=== PATIENT | female | born 1930 | race Caucasian/White ===

== ENCOUNTER 2019-01-21 23:36 | Inpatient (IN) | payer MEDICARE, OTHER ==
[~2019-01-21] VITALS: Ht 157.5 cm; Wt 75.3 kg
[~2019-01-21 23:36] MED LIST: /ALEN70TA OR; ACET65TA OR; ADVA1AER2 INH; ADVAIR; ALB2.5NEB INH; ALBU17IN INH; ALENDRONATE; ASPI81TA26 PO; AVEL1TAB2; AVEL1TAB3 PO; BABY81CH OR; CLOP75TA2 PO; CODE15TA OR; DUONSOL; DUONSOL INH; FISHCAP OR; METO1TAB63 PO; MILKSUS OR; MIRALEX OR; MOM30SS PO; MUCINEX PO; MULTIVIT OR; NEUR300C PO; NEXI1CAP3; PLAV75TA2 OR; PRAV1TAB39 OR; PRAV20TA2 PO; PRED-351 PO; PRED10TA2 OR; PRED10TA2 PO; PRED20TA; PRED20TA OR; PRED5PAK PO; PRED5TA PO; PRED5TAB OR; PRED5TAB PO; PROV90AE; REME15TA PO; SPIR1CAP INH; SYMB80INH INH; THERGRAN OR; TUSSSUS5; TYLE325T5 PO; VICO5TAB PO; WELL75TA PO; ZITH250T OR; ZITH250T PO; omega 3 OR
[2019-01-22] MEDS ORDERED: IPRATROPIUM 0.5MG/ALBUTEROL 2.5MG INH SOL UD 3ML (DUONEB)(J7620) NEB ONE ×2 (00:30→04:15)
[2019-01-22 00:54] LABS: BASO % 0.3 % (0.0-1.0); EOS # 0.5 10^3/uL (0.0-0.50); HEMATOCRIT 34.6 % (36.0-47.0); HEMOGLOBIN 11.4 g/dl (12.0-15.5); LYMPH # 2.5 10^3/uL (1.5-4.5); LYMPH % 16.1 % (24.0-44.0); MEAN CORPUSCULAR HEMOGLOBIN 31.1 pg (27.0-33.0); MEAN CORPUSCULAR HGB CONC 32.9 g/dl (32.0-36.5); MEAN CORPUSCULAR VOLUME 94.3 fl (80.0-96.0); MONO # 1.3 10^3/uL (0.0-0.8); MONO % 8.3 % (0.0-5.0); NEUTROPHILS % 71.7 % (36.0-66.0); PLATELET COUNT, AUTOMATED 257 10^3/uL (150-450); RED BLOOD COUNT 3.67 10^6/uL (4.00-5.40); WHITE BLOOD COUNT 15.4 10^3/uL (4.0-10.0)
[2019-01-22 01:00] LABS: VENOUS BASE EXCESS 2.5 (-2.0-2.0); VENOUS HCO3 30.7 MEQ/L (23.0-27.0); VENOUS O2 SATURATION 70.6 % (60.0-80.0); VENOUS PARTIAL PRESSURE CO2 66.1 mmHg (38.0-50.0); VENOUS PARTIAL PRESSURE O2 42.6 mmHg (30.0-50.0); VENOUS PH 7.285 UNITS (7.330-7.430); VENOUS STANDARD HCO3 26.1 MEQ/L; VENOUS TOTAL CO2 32.7 MEQ/L (24.0-28.0)
[2019-01-22 01:23] LABS: BLOOD UREA NITROGEN 26 MG/DL (7-18); CARBON DIOXIDE LEVEL 31 MEQ/L (21-32); CHLORIDE LEVEL 103 MEQ/L (98-107); CK-MB VALUE MASS 2.1 NG/ML (<3.6); CPK CREATINE PHOSPHOKINASE 91 U/L (26-192); CREATININE FOR GFR 0.78 MG/DL (0.55-1.30); GLOMERULAR FILTRATION RATE > 60.0 (>32); GLUCOSE, FASTING 72 MG/DL (70-100); MB/CK RELATIVE INDEX 2.31 (< OR =4); NT-PRO BNP 667 PG/ML (<450); POTASSIUM SERUM 4.3 MEQ/L (3.5-5.1); SODIUM LEVEL 140 MEQ/L (136-145); TROPONIN I 0.45 NG/ML (< 0.10)
[2019-01-22] MEDS ORDERED: JANU25TA PO ×2 (02:12→04:46)
[2019-01-22] MEDS ORDERED: FURO20TA2 PO ×2 (02:12→04:46)
[2019-01-22] MEDS ORDERED: CLOP75TA2 PO ×2 (02:12→04:46)
[2019-01-22] MEDS ORDERED: METO1TAB32 PO (02:12)
[2019-01-22] MEDS ORDERED: POTA10TA17 PO (02:12)
[2019-01-22] MEDS ORDERED: PRAV20TA2 PO ×2 (02:12→04:46)
[2019-01-22] MEDS ORDERED: CART120C PO (02:12)
[2019-01-22] MEDS ORDERED: PRED5PAK PO (02:12)
[2019-01-22] MEDS ORDERED: HYDR-3713 PO (02:12)
[2019-01-22] MEDS ORDERED: CILO50TA PO ×2 (02:12→04:46)
[2019-01-22] MEDS ORDERED: OMEP20CA3 PO (02:12)
[2019-01-22] MEDS ORDERED: ISOVUE-370 76% 100ML VIAL (Q9967) As Ordered ONE (02:51)
--- NOTE | 2019-01-22 03:27 | REPVR ---
EXAM: CT Angiography Chest With Contrast EXAM DATE/TIME: 01/22/2019 2:46 AM CLINICAL HISTORY: 88 years old, female; Shortness of breath; Patient HX: Copd; Additional info: SOB TECHNIQUE: Imaging protocol: Axial computed tomographic angiography images of the chest with intravenous contrast using CT angiography protocol. Coronal and sagittal reformatted images were created and reviewed. 3D rendering: MIP reconstructed images were created and reviewed. Radiation optimization: All CT scans at this facility use at least one of these dose optimization techniques: automated exposure control; mA and/or kV adjustment per patient size (includes targeted exams where dose is matched to clinical indication); or iterative reconstruction. Contrast material: ISO; Contrast volume: 75 ml; Contrast route: AC; COMPARISON: CR PORTABLE CHEST X-RAY 01/22/2019 12:31 AM FINDINGS: PULMONARY ARTERIES: Enhancement within the pulmonary arteries is preserved bilaterally through the distal segmental levels, without evidence for acute pulmonary embolus. Diameter of the main pulmonary trunk at 3.5 cm could be correlated for mild pulmonary arterial hypertension. HEART AND AORTA: Cardiothoracic ratio is slightly above normal limits. There is some calcification of the mitral and aortic valves. No significant pericardial effusion. There is coronary arterial calcification. The thoracic aorta is not aneurysmal. There is no thoracic aortic dissection. There is thoracic aortic atherosclerosis. Visualized proximal great vessels within the superior mediastinum are atherosclerotic but patent. MEDIASTINUM: No mediastinal gas. The visualized thyroid gland is within normal limits. No mediastinal hematoma. Small prevascular lymph nodes are noted. There is a precarinal lymph node measuring 15.2 mm in short axis, there is mild hilar lymphadenopathy, right greater than left the largest lymph node measuring 21 mm in maximal dimension. LUNGS: Small left pleural effusion. No pneumothorax. Patchy confluent pulmonary opacities noted within the left lower lobe which could be due to atelectasis and/or infiltrate/pneumonia. Clinical correlation and radiographic followup is advised. Similar patchy airspace opacity is noted posteriorly within the right upper lobe. Scattered subpleural reticular opacities are noted which may be secondary to atelectasis or interstitial thickening. Mild emphysematous changes are noted at lung apices. Dependent groundglass opacity is noted, likely due to atelectasis. Mild peribronchial thickening within the lower lobes may be related to reactive airways disease or mild bronchitis. There may be a few opacified bronchi which could be secondary to secretions from bronchitis or aspiration. UPPER ABDOMEN: No free air or free fluid within the visualized uppermost abdomen. No hiatal hernia. MSK AND BODY WALL: Degenerative changes of the spine and bony thorax. No acute fracture seen. IMPRESSION: No evidence for acute pulmonary embolus. Clinical correlation for mild pulmonary arterial hypertension. Mild cardiac enlargement and atherosclerosis including coronary artery disease. Pulmonary opacities to be correlated for infiltrate/pneumonia. Pulmonary findings discussed above in detail. Slightly enlarged mediastinal and hilar lymph nodes may be reactive, however short interval followup is advised to confirm resolution. Other incidental findings discussed above. Electronically signed by: Rodolfo Yoder On 01/22/2019 03:26:47 AM
[2019-01-22 03:50] LABS: CK-MB VALUE MASS 1.5 NG/ML (<3.6); MB/CK RELATIVE INDEX 1.74 (< OR =4); TROPONIN I 0.41 NG/ML (< 0.10)
[2019-01-22] MEDS ORDERED: PIPERACILLIN/TAZOBACTAM SOD 3.375 GM in D5W MINI-BAG PLUS 50 ML IV ONE (04:15)
[2019-01-22] MEDS ORDERED: TOUJ1.2I SC (04:46)
[2019-01-22] MEDS ORDERED: PRED5TA PO (04:46)
[2019-01-22] MEDS ORDERED: IPRA0.00 INH (04:46)
[2019-01-22] MEDS ORDERED: METO1TAB7 PO (04:46)
[2019-01-22] MEDS ORDERED: NORC1TAB7 PO ×2 (04:46)
[2019-01-22] MEDS ORDERED: TIOT18INH INH (04:46)
[2019-01-22] MEDS ORDERED: DILT120C78 PO (04:46)
[2019-01-22] MEDS ORDERED: D3 S1CAP3 PO (04:46)
[2019-01-22] MEDS ORDERED: ASPI81TA27 PO (04:46)
[2019-01-22] MEDS ORDERED: NORCO, ANEXSIA 5/325MG TABLET (HYDROcodone/ACETAMINOPHEN) PO PRN (05:30)
--- NOTE | 2019-01-22 05:43 | HPEPDOC ---
[facility] Medical History & Physical Date of Admission Jan 22, 2019 Date of Service: Jan 22, 2019 History and Physical PCP: [facility] CHIEF COMPLAINT: Shortness of breath HISTORY OF PRESENT ILLNESS: Patient is a 88-year-old female with significant COPD and follows with rewriter at her baseline on chronic O2 at night and with naps as well as chronic prednisone therapy 5 mg daily. 3 years ago she quit smoking after [id number] history of when she moved in with her son. Her son is retired they go back and forth between [address] [place] [address] and multiple homes appear in the [facility]. They recently drove from [facility] of this past weekend [address] the patient was notably more short of breath and coughing significantly more her dyspnea on exertion appeared to worsen over the last 2 days prompting Saturday presented to the emergency room today. The patient herself, she did not want to come to the hospital but does admit to significant shortness of breath. Patient does not feel improved emergency room at this time Otherwise patient denies weight loss, hair loss, headache, visual changes, chest pain, nausea, vomiting, diarrhea, abdominal pain, muscle aches, worsening arthritis, change in mood. The patient was recently diagnosed with moderate to moderately severe aortic stenosis as well as new onset atrial fibrillation. The patient's son also tells me that she recently was diagnosed with an esophageal stricture status post dilation 3 months ago, prior to the dilation she had several days' worth of pills and food in her esophagus. PAST MEDICAL HISTORY: 1. Significant peripheral arterial disease with multiple stents and bypasses she's been recommended previously for amputation. 2. Dyslipidemia. 3. Mood disorder 4. COPD with chronic prednisone dependence 5. Dysphasia 6. Aortic stenosis 7. Atrial fibrillation. HOME MEDICATIONS: Please see below. ALLERGIES: Please see below PAST SURGICAL HISTORY: 1. Bilateral peripheral arterial disease interventions numerous procedures and surgeries. 2. Brain aneurysm clipped. 3. Esophageal dilation 3 months ago. SOCIAL HISTORY: Lives with: Son, Employment: Not working, Tobacco use: Former 48-[id number]-kneb smoker. ETOH: Denies, Illicit drug use: Denies, Tattoos done unprofessionally: Denies, CODE STATUS: Full code FAMILY HISTORY:Reviewed and noncontributory REVIEW OF SYSTEMS: 10 systems reviewed and negative other than HPI PHYSICAL EXAMINATION: VITAL SIGNS: Temperature 97.8, pulse 90, respiratory rate 32, blood pressure 156/89, pulse oximetry 95 % on 2 L GENERAL: Pleasant hard of hearing elderly female sitting in a chair accompanied by her son awake alert oriented speaking in complete sentences no acute distress, mildly tachypnic HEENT: Moist mucous membranes no elevation and CVP appreciated CARDIOVASCULAR: S1 S2 regular no systolic ejection murmur. RESPIRATORY: Clear to auscultation bilaterally at the apices bilaterally, left lower lobe rails prolonged expiratory phase throughout. ABDOMINAL: Bowel sounds present abdomen soft and nontender EXTREMITIES: Chronic hyperpigmentation of the pretibial area bilaterally 1-2+ edema bilaterally exquisite tenderness to palpation NEUROLOGICAL: Spontaneously moves all 4 extremities cranial 2 through 12 grossly intact no gross focal deficits appreciated PSYCHOLOGICAL: Appropriate LABORATORY DATA: See below. MICROBIOLOGY: Please see below. IMAGING: CT angiography:No evidence for acute pulmonary embolus. Clinical correlation for mild pulmonary arterial hypertension. Mild cardiac enlargement and atherosclerosis including coronary artery disease. Pulmonary opacities to be correlated for infiltrate/pneumonia. Pulmonary findings discussed above in detail. Slightly enlarged mediastinal and hilar lymph nodes may be reactive, however short interval followup is advised to confirm resolution. Other incidental findings discussed In full report ASSESSMENT & PLAN: This is a 88-year-old female with acute on chronic hypoxic respiratory failure. PROBLEMS: 1. Acute on chronic hypoxic respiratory failure: Likely multifactorial in nature she certainly has numerous etiologies which could be contributing. Based on her CT findings and clinical history I'm most concerned for restenosis of her esophagus with aspiration events including the distribution of her multilobar pneumonia. As such. I'll continue her on Zosyn make her nothing by mouth have speech therapy evaluate her. She certainly could also be having decompensation of her COPD she does have fairly significant disease I'll provide her with Solu- Medrol in place of her usual prednisone in addition to nebulizer treatments continue her home inhalers. She is a new diagnosis of aortic stenosis. As such I will check an echocardiogram and she does have some mild elevation in her troponin which is likely secondary to demand ischemia related to her respiratory distress. I'll monitor on telemetry in the progressive care unit. She does have bilateral lower extremity edema but she also has significant known peripheral arterial disease and has been recommended for agitation the past I will hold off on her diuretic for now as her BUN is elevated as is her lactic acid could consider resuming with next 24-48 hours. I will check a duplex of lower extremities to exclude any DVT given her recent lengthy travel and lower extremity swelling and pain Once her acute medical illness has resolved she will require a repeat CT scan 2.Lactic acidosis: Likely secondary to increased work of breathing I will hold her diuretic although she appears to be perfusing well with normotensive blood pressure monitor for the next 24 hours 3. Abnormal troponin: Likely type II demand ischemia related to her respiratory distress already trending downward given her history of carotid disease peripheral arterial disease she will certainly has a degree of coronary artery disease could consider outpatient cardiology ischemic eval after her acute medical illness has resolved 4.COPD: As outlined above 5. Lower extremity edema: As outlined above 6. Diabetes mellitus: Sliding scale while patient is nothing by mouth, hypoglycemic protocol 7. Atrial fibrillation: Previous conversations were had on the outpatient setting the decision was made not to anticoagulate her, she has a new DVT O's not initiate anticoagulation at this time. She is rate controlled with metoprolol and diltiazem. 8. Peripheral arterial disease: Recommended to have amputation for end-stage peripheral arterial disease the patient follows with Dr Palmer in [place] vascular surgery recommended outpatient follow-up with him. Continue with hydrocodone for pain control aspirin Plavix statin DVT PROPHYLAXIS:Heparin DISPOSITION: PCU, given her multitude of problems and fragility her prognosis is certainly guarded. Lengthy time spent bedside answering all questions to his satisfaction of the patient's son who appears to be clearly medically educated Vital Signs Vital Signs Date Time Temp Pulse Resp B/P (MAP) Pulse Ox O2 Delivery O2 Flow Rate FiO2 01/22/19 04:36 89 25 95 Nasal Cannula 4.0 01/22/19 02:09 156/89 (111) 01/21/19 23:36 97.8 Laboratory Data Labs 24H Laboratory Tests 2 01/22/19 00:46: Immature Granulocyte % (Auto) 0.6, White Blood Count 15.4H, Red Blood Count 3.67L, Hemoglobin 11.4L, Hematocrit 34.6L, Mean Corpuscular Volume 94.3, Mean Corpuscular Hemoglobin 31.1, Mean Corpuscular Hemoglobin Concent 32.9, Red Cell Distribution Width 15.0H, Platelet Count 257, Neutrophils (%) (Auto) 71.7H, Lymphocytes (%) (Auto) 16.1L, Monocytes (%) (Auto) 8.3H, Eosinophils (%) (Auto) 3.0, Basophils (%) (Auto) 0.3, Neutrophils # (Auto) 11.0H, Lymphocytes # (Auto) 2.5, Monocytes # (Auto) 1.3H, Eosinophils # (Auto) 0.5, Basophils # (Auto) 0.0, Nucleated Red Blood Cells % (auto) 0.0, Blood Gas Bicarbonate Standard 26.1, Venous Blood pH 7.285L, Venous Blood Partial Pressure CO2 66.1H, Venous Blood Partial Pressure O2 42.6, Venous Blood Total Carbon Dioxide 32.7H, Venous Blood HCO3 30.7H, Venous Blood Oxygen Saturation 70.6, Venous Blood Base Excess 2.5H, Anion Gap 6L, Glomerular Filtration Rate > 60.0, Lactic Acid Level 2.5*H, Blood Urea Nitrogen 26H, Creatinine 0.78, Sodium Level 140, Potassium Level 4.3, Chloride Level 103, Carbon Dioxide Level 31, Calcium Level 9.0, Total Creatine Kinase 91, Creatine Kinase MB 2.1, Creatine Kinase MB Relative Index 2.31, Troponin I 0.45H, WL-Wnq-Q-Type Natriuretic Peptide 667H 01/22/19 02:29: POC pH (Misc Panel) 7.439, POC Base Excess (Misc Panel) 0.0, POC Saturated Percent O2 (Misc) 95, POC pO2 (Misc Panel) 75.0L, POC pCO2 (Misc Panel) 36.3, POC HCO3 (Misc Panel) 24.6, POC Total CO2 (Misc Panel) 26.0 01/22/19 03:20: Total Creatine Kinase 86, Creatine Kinase MB 1.5, Creatine Kinase MB Relative Index 1.74, Troponin I 0.41H CBC/BMP Laboratory Tests 01/22/19 00:46 Red Blood Count 3.67 L, Mean Corpuscular Volume 94.3, Mean Corpuscular Hemoglobin 31.1, Mean Corpuscular Hemoglobin Concent 32.9, Red Cell Distribution Width 15.0 H, Neutrophils (%) (Auto) 71.7 H, Lymphocytes (%) (Auto) 16.1 L, Monocytes (%) (Auto) 8.3 H, Eosinophils (%) (Auto) 3.0, Basophils (%) (Auto) 0.3, Neutrophils # (Auto) 11.0 H, Lymphocytes # (Auto) 2.5, Monocytes # (Auto) 1.3 H, Eosinophils # (Auto) 0.5, Basophils # (Auto) 0.0, Calcium Level 9.0, Total Creatine Kinase 91 Microbiology Microbiology 01/22/19 Blood Culture, Received Pending 01/22/19 Blood Culture, Received Pending 01/22/19 Respiratory Virus Panel (PCR) (DAINA) - Final, Complete Home Medications Scheduled Aspirin (Aspirin EC) 81 Mg Tablet.dr, 81 MG PO QHS Budesonide/Formoterol (Symbicort 80-4.5 Mcg Inhaler) 60 Puff/Inhaler Aers, 2 PUFF INH BID Cholecalciferol (Vitamin D3) (Vitamin D3) 2,000 Unit Capsule, 2,000 UNIT PO QHS Cilostazol (Cilostazol) 50 Mg Tablet, 50 MG PO BID Clopidogrel Bisulfate (Clopidogrel) 75 Mg Tablet, 75 MG PO DAILY Diltiazem HCl (Diltiazem 24Hr ER) 120 Mg Cap.er.24h, 120 MG PO DAILY Furosemide (Furosemide) 20 Mg Tablet, 20 MG PO DAILY Hydrocodone/Acetaminophen ([place] 5-325 Tablet) 1 Each Tablet, 1 TAB PO QHS Insulin Glargine,Hum.rec.anlog (Toujeo Solostar) 300 Unit/1 Ml Insuln.pen, 35 UNIT SC DAILY Ipratropium/Albuterol Sulfate (Iprat-Albut 0.5-3(2.5) mg/3 ml) 3 Ml Ampul.neb, 3 ML INH QID Metoprolol Succinate (Metoprolol Succinate) 50 Mg Tab.er.24h, 25 MG PO DAILY Omeprazole (Omeprazole) 20 Mg Capsule.dr, 20 MG PO BID Potassium Chloride (Potassium Chloride) 10 Meq Tab.er.prt, 10 MEQ PO DAILY Pravastatin Sodium (Pravastatin Sodium) 20 Mg Tablet, 20 MG PO DAILY Prednisone (Prednisone) 5 Mg Tablet, 5 MG PO DAILY Sitagliptin Phosphate (Januvia) 25 Mg Tablet, 25 MG PO DAILY Tiotropium Bimble Monohydrate (Spiriva) 18 Mcg Cap.w.dev, 1 INHALATION INH DAILY Scheduled PRN Hydrocodone/Acetaminophen ([place] 5-325 Tablet) 1 Each Tablet, 1 TAB PO TID PRN for PAIN Allergies Coded Allergies: codeine (Verified Allergy, Unknown, 01/21/19) Sulfa (Sulfonamide Antibiotics) (Verified Adverse Reaction, Mild, RASH , 01/21/19) erythromycin base (Verified Adverse Reaction, Mild, NAUSEA, 01/21/19) A-FIB/CHADSVASC A-FIB History Current/History of A-Fib/PAF?: Yes Current PO Anticoag Therapy: No Age/Risk Factor Scoring CHADSVASC: CHADSVASC Response (Comments) Value Age Risk Factor Age >/= 75 years old 2 Gender Risk Factor Female 1 Hx of CHF No 0 Hx of HTN Yes 1 Hx of Stroke/TIA/or VTE No 0 Hx of Diabetes Yes 1 Hx of Vascular Disease Yes 1 Total 6 Treatment Treatment ordered: NONE Reason Anticoagulant not given: Patient refusal NAPOLEON PRUITT MD Jan 22, 2019 05:42
[2019-01-22] MEDS ORDERED: DEXTROSE 50% 50 ML SYRINGE IV PRN (05:45)
[2019-01-22] MEDS ORDERED: GLUCAGON FOR INJ 1 MG VIAL (J1610) SC PRN (05:45)
[2019-01-22] MEDS ORDERED: GLUCOSE 4 GM CHEW TABLET PO PRN (05:45)
--- NOTE | 2019-01-22 05:47 | ECGEPIP ---
[facility] - ED Test Date: 2019-01-21 Pat Name: CHICO JONES Department: Room: - Gender: Female Transformation Lead: BILL : 1930 Requested By: PALEMR Gonzalez Order Number: [id number] Reading MD: Kalin Gardner Measurements Intervals [place] Rate: 86 P: 51 IA: 158 QRS: 5 QRSD: 87 T: 59 QT: 373 QTc: 447 Interpretive Statements SINUS RHYTHM WITH OCCASIONAL VENTRICULAR PREMATURE COMPLEXES LEFT ATRIAL ENLARGEMENT SIMILAR TO 07/14/14 Electronically Signed on 01-22-2019 5:46:52 EDT by Kalin Gardner
[2019-01-22] MEDS: HumaLOG INSULIN (NovoLOG) PER UNIT SC SCH ×4 (06:00→23:38)
--- NOTE | 2019-01-22 06:23 | REP ---
Clinical: Shortness of breath. Comparison: 08/14/2013. Findings: Mediastinum and cardiac silhouette are normal. Lung worthy demonstrate chronic interstitial changes with superimposed basilar atelectasis. No obvious effusion. No pneumothorax. Skeletal structures demonstrate stable degenerative changes. Impression: Chronic changes with superimposed basilar atelectasis (left greater than right). Electronically Signed by Jose Eduardo Olivera MD 01/22/2019 06:15 A
[2019-01-22 06:42] VITALS: BP_SYST 138
[2019-01-22] MEDS: methylPREDNISolone INJ 125 MG/2 ML VIAL (J2930) IV SCH ×4 (06:52→23:44)
--- NOTE | 2019-01-22 06:59 | REP ---
Clinical: Chest and lower extremity pain with history of immobility. Technique: Savage scale and color Doppler evaluation using linear high frequency transducer. Findings: Diffuse subcutaneous edema noted bilaterally. Ultrasound examination of the right and left lower extremity deep venous structures from the common femoral vein to the popliteal vein demonstrates normal compressibility flow and wave patterns in response to respiration and augmentation. There is no evidence for deep venous thrombosis. Impression: No evidence for deep venous thrombosis. Electronically Signed by Jose Eduardo Olivera MD 01/22/2019 06:51 A
[2019-01-22] MEDS: TIOTROPIUM INHALER/CAPSULE (SPIRIVA) INH SCH (07:57)
[2019-01-22] MEDS: IPRATROPIUM 0.5MG/ALBUTEROL 2.5MG INH SOL UD 3ML (DUONEB)(J7620) NEB SCH ×3 (07:58→19:55)
[2019-01-22] MEDS: SYMBICORT 80/4.5MCG INHALER 6GM INH SCH ×2 (07:58→19:55)
[2019-01-22 08:00] VITALS: BP 128/60
[2019-01-22 08:24] LABS: HEMATOCRIT 35.6 % (36.0-47.0); HEMOGLOBIN 12.1 g/dl (12.0-15.5); MEAN CORPUSCULAR HEMOGLOBIN 31.3 pg (27.0-33.0); PLATELET COUNT, AUTOMATED 241 10^3/uL (150-450); RED BLOOD COUNT 3.87 10^6/uL (4.00-5.40); WHITE BLOOD COUNT 17.4 10^3/uL (4.0-10.0)
[2019-01-22 08:58] LABS: BLOOD UREA NITROGEN 23 MG/DL (7-18); CALCIUM LEVEL 8.8 MG/DL (8.8-10.2); CARBON DIOXIDE LEVEL 29 MEQ/L (21-32); CHLORIDE LEVEL 102 MEQ/L (98-107); CREATININE FOR GFR 0.92 MG/DL (0.55-1.30); FERRITIN 86 NG/ML (8-252); GLOMERULAR FILTRATION RATE > 60.0 (>32); GLUCOSE, FASTING 59 MG/DL (70-100); IRON (FE) 43 UG/DL (50-170); PERCENT SATURATION 13.2 % (13.2-45.0); SODIUM LEVEL 136 MEQ/L (136-145); TOTAL IRON BINDING CAPACITY 325 UG/DL (250-450)
[2019-01-22] MEDS: CLOPIDOGREL 75 MG TAB PO SCH (10:14)
[2019-01-22] MEDS: ASPIRIN 81 MG CHEW TABLET PO SCH (10:14)
[2019-01-22] MEDS: OMEPRAZOLE 20 MG CAP PO SCH ×2 (10:14→21:14)
[2019-01-22] MEDS: PRAVASTATIN 20 MG TAB PO SCH (10:14)
[2019-01-22] MEDS: HEPARIN SOD (PORCINE) 5000 UNITS/ML VIAL SC SCH ×2 (10:15→21:14)
[2019-01-22] MEDS: METOPROLOL SUCC *XL* 25MG TAB (TopROL *XL*) PO SCH (10:15)
[2019-01-22] MEDS: D5W/0.45% SODIUM CHLORIDE 1,000 ML IV SCH (10:16)
--- NOTE | 2019-01-22 11:01 | REP ---
Clinical: Cough and dyspnea. Comparison: 01/22/1999 12:31 a.m. Findings: Mediastinum and cardiac silhouette are normal. Lung worthy demonstrate chronic interstitial changes. Subtle superimposed left basilar atelectasis and possible small pleural reaction are again suggested. No pneumothorax. Skeletal structures are intact. Impression: Mild left basilar atelectasis and small pleural reaction. Electronically Signed by Jose Eduardo Olivera MD 01/22/2019 10:53 A
[2019-01-22] MEDS: PIPERACILLIN/TAZOBACTAM SOD 3.375 GM in D5W MINI-BAG PLUS 50 ML IV SCH ×3 (11:19→23:44)
--- NOTE | 2019-01-22 11:22 | NUR ---
Recommend mechanical soft solids, thin liquids. D/t hx of esophageal stricture, c/o intermittent cough & globus sensation w/ dry solids, and multilobar pneumonia, recommend MBSS cookie swallow to assess degree & location of residues & to r/o aspiration. Addendum: 01/22/[address] [facility] Amended: Links added.
[2019-01-22 12:00] VITALS: BP 128/80
[2019-01-22] MEDS ORDERED: VARIBAR PUDDING 40% w/v 230ML TUBE As Ordered ONE (14:23)
[2019-01-22] MEDS ORDERED: E-Z-PAQUE 96% w/w SUSP 176GM BTL As Ordered ONE (14:23)
[2019-01-22] MEDS ORDERED: BARIUM SULFATE 700 MG TABLET (E-Z-DISK) As Ordered ONE (14:23)
--- NOTE | 2019-01-22 15:45 | NUR ---
Recommend continue current diet as tolerated - level 3 mechanically altered and thin liquids, med's in puree assist prn, upright positioning please. No penetration/aspiration observed on exam and residues were negligible. D/t respiratory status w/ increased SOB during meals and c/o intermittent globus sensation w/ specific regular solids, will continue PO trials regular solids at bedside prior to diet upgrade. Addendum: 01/22/[address] [facility] Amended: Links added.
[2019-01-22 16:00] VITALS: BP 114/62
[2019-01-22 20:00] VITALS: BP 124/66
[2019-01-22] MEDS: NORCO, ANEXSIA 5/325MG TABLET (HYDROcodone/ACETAMINOPHEN) PO SCH (21:14)
[2019-01-22 23:00] VITALS: O2SAT 95
[2019-01-23] VITALS (16 sets, daily range): BP systolic 91–167; BP diastolic 42–72; O2SAT 92–97
--- NOTE | 2019-01-23 00:08 | ECGEPIP ---
[facility] Test Date: 2019-01-22 Pat Name: CHICO JONES Department: Room: [place] [address] Gender: Female Wireless Sales Consultant: SHELBY : 1930 Requested By: NAPOLEON PRUITT Order Number: [id number] Reading MD: Waylon Payan Measurements Intervals [place] Rate: 95 P: 53 OR: 152 QRS: 19 QRSD: 93 T: 61 QT: 356 QTc: 449 Interpretive Statements SINUS RHYTHM WITH UNDERLYING SINUS ARRHYTHMIA MILD IVCD MODERATE ST DEPRESSION MOST RECENT TRACING ON 01/21/2019 AT 11:49 P.M., ISOLATED PVCS WERE NOTED Electronically Signed on 01-23-2019 0:08:34 EDT by Waylon Payan
[2019-01-23] MEDS: IPRATROPIUM 0.5MG/ALBUTEROL 2.5MG INH SOL UD 3ML (DUONEB)(J7620) NEB SCH ×4 (01:28→19:56)
[2019-01-23] MEDS: PIPERACILLIN/TAZOBACTAM SOD 3.375 GM in D5W MINI-BAG PLUS 50 ML IV SCH ×4 (04:23→22:09)
[2019-01-23] MEDS: methylPREDNISolone INJ 125 MG/2 ML VIAL (J2930) IV SCH ×4 (05:39→23:45)
[2019-01-23 06:33] LABS: HEMATOCRIT 33.1 % (36.0-47.0); MEAN CORPUSCULAR HEMOGLOBIN 31.4 pg (27.0-33.0); MEAN CORPUSCULAR HGB CONC 33.2 g/dl (32.0-36.5); MEAN CORPUSCULAR VOLUME 94.6 fl (80.0-96.0); PLATELET COUNT, AUTOMATED 237 10^3/uL (150-450); WHITE BLOOD COUNT 13.2 10^3/uL (4.0-10.0)
[2019-01-23 07:01] LABS: CALCIUM LEVEL 8.3 MG/DL (8.8-10.2); CREATININE FOR GFR 1.08 MG/DL (0.55-1.30); GLOMERULAR FILTRATION RATE 51.1 (>32); POTASSIUM SERUM 3.8 MEQ/L (3.5-5.1)
[2019-01-23] MEDS: D5W/0.45% SODIUM CHLORIDE 1,000 ML IV SCH (08:07)
[2019-01-23] MEDS: CLOPIDOGREL 75 MG TAB PO SCH (08:08)
[2019-01-23] MEDS: ASPIRIN 81 MG CHEW TABLET PO SCH (08:08)
[2019-01-23] MEDS: HumaLOG INSULIN (NovoLOG) PER UNIT SC SCH ×4 (08:08→21:00)
[2019-01-23] MEDS: PRAVASTATIN 20 MG TAB PO SCH (08:09)
[2019-01-23] MEDS: METOPROLOL SUCC *XL* 25MG TAB (TopROL *XL*) PO SCH (08:09)
[2019-01-23] MEDS: OMEPRAZOLE 20 MG CAP PO SCH ×2 (08:09→21:58)
[2019-01-23] MEDS: HEPARIN SOD (PORCINE) 5000 UNITS/ML VIAL SC SCH ×2 (08:10→22:09)
[2019-01-23] MEDS: TIOTROPIUM INHALER/CAPSULE (SPIRIVA) INH SCH (08:25)
[2019-01-23] MEDS: SYMBICORT 80/4.5MCG INHALER 6GM INH SCH ×2 (08:25→19:56)
[2019-01-23] MEDS ORDERED: SLF 3 ML SYR IV PRN (11:15)
[2019-01-23] MEDS: SLF 3 ML SYR IV SCH ×2 (12:02→22:09)
--- NOTE | 2019-01-23 14:06 | IPNPDOC ---
Date Seen The patient was seen on 01/23/19. Progress Note SUBJECTIVE: Pt was evaluated by speech therapy for dysphagia with oral dietary recommendations."Recommend continue current diet as tolerated - level 3 mechanically altered and thin liquids, med's in puree assist prn, upright positioning please. No penetration/aspiration observed on exam and residues were negligible. D/t respiratory status w/ increased SOB during meals and c/o intermittent globus sensation w/ specific regular solids, will continue PO trials regular solids at bedside prior to diet upgrade." Pt still has cough productive of sputum white yellow. afebrile and no chills overnight. c/o weakness,but anxious to go home soon. PT consulted to prevent deconditioning. No other c/o odynophagia, hematemesis, abdominal pain, or constipation. PHYSICAL EXAMINATION: VITAL SIGNS: PLS SEE BELOW GENERAL: Pleasant hard of hearing elderly female sitting in a chair accompanied by her son awake alert oriented speaking in complete sentences no acute distress, mildly tachypnic HEENT: Moist mucous membranes no elevation and CVP appreciated CARDIOVASCULAR: S1 S2 regular no systolic ejection murmur. RESPIRATORY: Clear to auscultation bilaterally at the apices bilaterally, left lower lobe rails prolonged expiratory phase throughout. ABDOMINAL: Bowel sounds present abdomen soft and nontender EXTREMITIES: Chronic hyperpigmentation of the pretibial area bilaterally 1-2+ edema bilaterally exquisite tenderness to palpation NEUROLOGICAL: Spontaneously moves all 4 extremities cranial 2 through 12 grossly intact no gross focal deficits appreciated PSYCHOLOGICAL: Appropriate LABORATORY DATA: See below. MICROBIOLOGY: Please see below. IMAGING: CT angiography:No evidence for acute pulmonary embolus. Clinical correlation for mild pulmonary arterial hypertension. Mild cardiac enlargement and atherosclerosis including coronary artery disease. Pulmonary opacities to be correlated for infiltrate/pneumonia. Pulmonary findings discussed above in detail. Slightly enlarged mediastinal and hilar lymph nodes may be reactive, however short interval followup is advised to confirm resolution. Other incidental findings discussed In full report ASSESSMENT AND PLAN: Patient is a 88-year-old female with significant COPD and follows with c software developer at her baseline on chronic O2 at night and with naps as well as chronic prednisone therapy 5 mg daily. 3 years ago she quit smoking after [id number] history of when she moved in with her son. Her son is retired they go back and forth between [address] [place] [address] and multiple homes appear in the [facility]. They recently drove from [facility] of this past weekend [address] the patient was notably more short of breath and coughing significantly more her dyspnea on exertion appeared to worsen over the last 2 days prompting Saturday presented to the emergency room today. The patient herself, she did not want to come to the hospital but does admit to significant shortness of breath. Patient does not feel improved emergency room at this time Otherwise patient denies weight loss, hair loss, headache, visual changes, chest pain, nausea, vomiting, diarrhea, abdominal pain, muscle aches, worsening arthritis, change in mood. The patient was recently diagnosed with moderate to moderately severe aortic stenosis as well as new onset atrial fibrillation. The patient's son also tells me that she recently was diagnosed with an esophageal stricture status post dilation 3 months ago, prior to the dilation she had several days' worth of pills and food in her esophagus. Acute on chronic hypoxic respiratory failure: -due to multilobar pneumonia, possible COPD exacerbation, possible symptomatic -IV Zosyn 01/22/19 x 7days -keep o2 sat 88-92% -due to possible aspiration, swallow therapist consulted.Pt was evaluated by speech therapy for dysphagia with oral dietary recommendations."Recommend continue current diet as tolerated - level 3 mechanically altered and thin liquids, med's in puree assist prn, upright positioning please. No penetration/aspiration observed on exam and residues were negligible. D/t respiratory status w/ increased SOB during meals and c/o intermittent globus sensation w/ specific regular solids, will continue PO trials regular solids at bedside prior to diet upgrade." Multilobar Pneumonia -IV Zosyn 01/22/19 x 7days -keep o2 sat 88-92% -sputum cx, blood cx, urine legionella urine strep pneumo. Dysphagia -Pt was evaluated by speech therapy for dysphagia with oral dietary recommendations."Recommend continue current diet as tolerated - level 3 mechanically altered and thin liquids, med's in puree assist prn, upright positioning please. No penetration/aspiration observed on exam and residues were negligible. D/t respiratory status w/ increased SOB during meals and c/o intermittent globus sensation w/ specific regular solids, will continue PO trials regular solids at bedside prior to diet upgrade." Lactic acidosis: Likely secondary to increased work of breathing I will hold her diuretic although she appears to be perfusing well with normotensive blood pressure monitor for the next 24 hours Abnormal troponin: Likely type II demand ischemia related to her respiratory distress already trending downward given her history of carotid disease peripheral arterial disease she will certainly has a degree of coronary artery disease could consider outpatient cardiology ischemic eval after her acute medical illness has resolved COPD -o2 to keep sat 88-92% o2sat -iv solumedrol Aortic Stenosis -may be contributing to pt's sob. -echo report pending Diabetes mellitus: -slide scale -fingersticks with coverage Atrial fibrillation: Previous conversations were had on the outpatient setting the decision was made not to anticoagulate her, she has a new DVT not initiate anticoagulation at this time. She is rate controlled with metoprolol and diltiazem. Peripheral arterial disease: Recommended to have amputation for end-stage peripheral arterial disease the patient follows with Dr Palmer in [place] vascular surgery recommended outpatient follow-up with him. Continue with hydrocodone for pain control aspirin Plavix statin DVT PROPHYLAXIS:Heparin VS, I&O, 24H, Fishbone Vital Signs/I&O Vital Signs Date Time Temp Pulse Resp B/P (MAP) Pulse Ox O2 Delivery O2 Flow Rate FiO2 01/23/19 05:00 96 Room Air 2.0 01/23/19 00:00 96.9 80 18 122/64 (83) I&O- Last 24 Hours up to 6 AM 01/23/19 06:00 Intake Total 1480 ml Output Total 1825 ml Balance -345 ml Laboratory Data 24H LABS Laboratory Tests 2 01/22/19 08:10: Reticulocyte # (auto) 106.0H, Nucleated Red Blood Cells % (auto) 0.0, Percent Reticulocyte Count 2.7H, Reticulocyte Hemoglobin Equivalent 34.7, Anion Gap 5L, Glomerular Filtration Rate > 60.0, Lactic Acid Level 2.2*H, Blood Urea Nitrogen 23H, Creatinine 0.92, Sodium Level 136, Potassium Level 4.0, Chloride Level 102, Carbon Dioxide Level 29, Calcium Level 8.8, Iron Level 43L, Total Iron Binding Capacity 325, Transferrin % Saturation 13.2, Ferritin 86, Procalcitonin 0.05 01/22/19 12:28: Lactic Acid Followup at 4 Hours 1.5 01/22/19 12:49: Bedside Glucose (Misc Panel) 166H 01/22/19 17:05: Bedside Glucose (Misc Panel) 276H 01/22/19 23:32: Bedside Glucose (Misc Panel) 190H 01/23/19 06:02: Nucleated Red Blood Cells % (auto) 0.0, Anion Gap 12, Glomerular Filtration Rate 51.1, Blood Urea Nitrogen 24H, Creatinine 1.08, Sodium Level 142, Potassium Level 3.8, Chloride Level 106, Carbon Dioxide Level 24, Calcium Level 8.3L CBC/BMP Laboratory Tests 01/22/19 08:10 Red Blood Count 3.87 L, Mean Corpuscular Volume 92.0, Mean Corpuscular Hemoglobin 31.3, Mean Corpuscular Hemoglobin Concent 34.0, Red Cell Distribution Width 14.9 H, Calcium Level 8.8 01/23/19 06:02 Red Blood Count 3.50 L, Mean Corpuscular Volume 94.6, Mean Corpuscular Hemog lobin 31.4, Mean Corpuscular Hemoglobin Concent 33.2, Red Cell Distribution Width 15.0 H, Calcium Level 8.3 L Microbiology Microbiology 01/22/19 Blood Culture - Preliminary, Resulted No growth after 24 hours . All specim... 01/22/19 Blood Culture - Preliminary, Resulted No growth after 24 hours . All specim... 01/22/19 Respiratory Virus Panel (PCR) ([facility]) - Final, Complete SHERIF SOLIS MD Jan 23, 2019 07:27
[2019-01-23] MEDS: NORCO, ANEXSIA 5/325MG TABLET (HYDROcodone/ACETAMINOPHEN) PO SCH (21:59)
[2019-01-24] VITALS: BP 112/50
[2019-01-24] MEDS: IPRATROPIUM 0.5MG/ALBUTEROL 2.5MG INH SOL UD 3ML (DUONEB)(J7620) NEB SCH ×4 (01:25→20:00)
[2019-01-24 04:00] VITALS: BP 92/61
[2019-01-24 05:17] LABS: HEMATOCRIT 31.1 % (36.0-47.0); HEMOGLOBIN 10.3 g/dl (12.0-15.5); MEAN CORPUSCULAR HGB CONC 33.1 g/dl (32.0-36.5); MEAN CORPUSCULAR VOLUME 93.7 fl (80.0-96.0); PLATELET COUNT, AUTOMATED 232 10^3/uL (150-450); RED BLOOD COUNT 3.32 10^6/uL (4.00-5.40); WHITE BLOOD COUNT 14.9 10^3/uL (4.0-10.0)
[2019-01-24 05:34] LABS: BLOOD UREA NITROGEN 29 MG/DL (7-18); CALCIUM LEVEL 8.3 MG/DL (8.8-10.2); CARBON DIOXIDE LEVEL 26 MEQ/L (21-32); CHLORIDE LEVEL 106 MEQ/L (98-107); CREATININE FOR GFR 0.93 MG/DL (0.55-1.30); GLOMERULAR FILTRATION RATE > 60.0 (>32); GLUCOSE, FASTING 197 MG/DL (70-100); POTASSIUM SERUM 3.8 MEQ/L (3.5-5.1); SODIUM LEVEL 140 MEQ/L (136-145)
[2019-01-24] MEDS: methylPREDNISolone INJ 125 MG/2 ML VIAL (J2930) IV SCH ×3 (05:40→17:48)
[2019-01-24] MEDS: SLF 3 ML SYR IV SCH ×3 (05:40→22:00)
[2019-01-24] MEDS: PIPERACILLIN/TAZOBACTAM SOD 3.375 GM in D5W MINI-BAG PLUS 50 ML IV SCH ×3 (05:40→17:48)
[2019-01-24] MEDS: SYMBICORT 80/4.5MCG INHALER 6GM INH SCH ×2 (07:21→20:16)
[2019-01-24] MEDS: TIOTROPIUM INHALER/CAPSULE (SPIRIVA) INH SCH (07:21)
[2019-01-24 08:00] VITALS: BP 93/46
[2019-01-24] MEDS: METOPROLOL SUCC *XL* 25MG TAB (TopROL *XL*) PO SCH (08:16)
[2019-01-24] MEDS: PRAVASTATIN 20 MG TAB PO SCH (08:47)
[2019-01-24] MEDS: ASPIRIN 81 MG CHEW TABLET PO SCH (08:47)
[2019-01-24] MEDS: OMEPRAZOLE 20 MG CAP PO SCH ×2 (08:47→22:13)
[2019-01-24] MEDS: HumaLOG INSULIN (NovoLOG) PER UNIT SC SCH ×4 (08:47→22:13)
[2019-01-24] MEDS: CLOPIDOGREL 75 MG TAB PO SCH (08:48)
[2019-01-24] MEDS: HEPARIN SOD (PORCINE) 5000 UNITS/ML VIAL SC SCH ×2 (08:49→22:14)
--- NOTE | 2019-01-24 09:59 | IPNPDOC ---
Date Seen The patient was seen on 01/24/19. Progress Note SUBJECTIVE: sbp 98 mmHg but denies any lightheadeness, or dizziness. no c/o chest pain or near syncope. held cardizem and metoprolol for sbp<120. Pt was evaluated by speech therapy for dysphagia with oral dietary recommendations."Recommend continue current diet as tolerated - level 3 mechanically altered and thin liquids, med's in puree assist prn, upright positioning please. No penetration/aspiration observed on exam and residues were negligible. D/t respiratory status w/ increased SOB during meals and c/o intermittent globus sensation w/ specific regular solids, will continue PO trials regular solids at bedside prior to diet upgrade." Pt still has cough productive of sputum white yellow. afebrile and no chills overnight. c/o weakness,but anxious to go home soon. PT consulted to prevent deconditioning. No other c/o odynophagia, hematemesis, abdominal pain, or constipation. PHYSICAL EXAMINATION: VITAL SIGNS: PLS SEE BELOW GENERAL: Pleasant hard of hearing elderly female sitting in a chair accompanied by her son awake alert oriented speaking in complete sentences no a cute distress, mildly tachypnic HEENT: Moist mucous membranes no elevation and CVP appreciated CARDIOVASCULAR: S1 S2 regular no systolic ejection murmur. RESPIRATORY: Clear to auscultation bilaterally at the apices bilaterally, left lower lobe rails prolonged expiratory phase throughout. ABDOMINAL: Bowel sounds present abdomen soft and nontender EXTREMITIES: Chronic hyperpigmentation of the pretibial area bilaterally 1-2+ edema bilaterally exquisite tenderness to palpation NEUROLOGICAL: Spontaneously moves all 4 extremities cranial 2 through 12 grossly intact no gross focal deficits appreciated PSYCHOLOGICAL: Appropriate LABORATORY DATA: See below. MICROBIOLOGY: Please see below. IMAGING: CT angiography:No evidence for acute pulmonary embolus. Clinical correlation for mild pulmonary arterial hypertension. Mild cardiac enlargement and atherosclerosis including coronary artery disease. Pulmonary opacities to be correlated for infiltrate/pneumonia. Pulmonary findings discussed above in detail. Slightly enlarged mediastinal and hilar lymph nodes may be reactive, however short interval followup is advised to confirm resolution. Other incidental findings discussed In full report ASSESSMENT AND PLAN: Patient is a 88-year-old female with significant COPD and follows with pulm onologist at her baseline on chronic O2 at night and with naps as well as chronic prednisone therapy 5 mg daily. 3 years ago she quit smoking after [id number] history of when she moved in with her son. Her son is retired they go back and forth between [address] [place] [address] and multiple homes appear in the [place]. They recently drove from [facility] of this past weekend [address] the patient was notably more short of breath and coughing significantly more her dyspnea on exertion appeared to worsen over the last 2 days prompting Saturday presented to the emergency room today. The patient herself, she did not want to come to the hospital but does admit to significant shortness of breath. Patient does not feel improved emergency room at this time Otherwise patient denies weight loss, hair loss, headache, visual changes, chest pain, nausea, vomiting, diarrhea, abdominal pain, muscle aches, worsening arthritis, change in mood. The patient was recently diagnosed with moderate to moderately severe aortic stenosis as well as new onset atrial fibrillation. The patient's son also tells me that she recently was diagnosed with an esophageal stricture status post dilation 3 months ago, prior to the dilation she had several days' worth of pills and food in her esophagus. Acute on chronic hypoxic respiratory failure: -due to multilobar pneumonia, possible COPD exacerbation, possible symptomatic -IV Zosyn 01/22/19 x 7days -keep o2 sat 88-92% -due to possible aspiration, swallow therapist consulted.Pt was evaluated by speech therapy for dysphagia with oral dietary recommendations."Recommend continue current diet as tolerated - level 3 mechanically altered and thin li quids, med's in puree assist prn, upright positioning please. No penetration/aspiration observed on exam and residues were negligible. D/t respiratory status w/ increased SOB during meals and c/o intermittent globus sensation w/ specific regular solids, will continue PO trials regular solids at bedside prior to diet upgrade." Multilobar Pneumonia -IV Zosyn 01/22/19 x 7days -keep o2 sat 88-92% -sputum cx, blood cx, urine legionella urine strep pneumo. Dysphagia -Pt was evaluated by speech therapy for dysphagia with oral dietary recommendations."Recommend continue current diet as tolerated - level 3 mechanically altered and thin liquids, med's in puree assist prn, upright positioning please. No penetration/aspiration observed on exam and residues were negligible. D/t respiratory status w/ increased SOB during meals and c/o intermittent globus sensation w/ specific regular solids, will continue PO trials regular solids at bedside prior to diet upgrade." Lactic acidosis: Likely secondary to increased work of breathing I will hold her diuretic although she appears to be perfusing well with normotensive blood pressure monitor for the next 24 hours Abnormal troponin: Likely type II demand ischemia related to her respiratory distress already trending downward given her history of carotid disease peripheral arterial disease she will certainly has a degree of coronary artery disease could consider outpatient cardiology ischemic eval after her acute medical illness has resolved COPD -o2 to keep sat 88-92% o2sat -iv solumedrol Aortic Stenosis -may be contributing to pt's sob. -echo report pending Diabetes mellitus: -slide scale -fingersticks with coverage Atrial fibrillation: Previous conversations were had on the outpatient setting the decision was made not to anticoagulate her, she has a new DVT not initiate anticoagulation at this time. She is rate controlled with metoprolol and diltiazem. Peripheral arterial disease: Recommended to have amputation for end-stage p eripheral arterial disease the patient follows with Dr Palmer in [place] vascular surgery recommended outpatient follow-up with him. Continue with hydrocodone for pain control aspirin Plavix statin DVT PROPHYLAXIS:Heparin VS, I&O, 24H, Fishbone Vital Signs/I&O Vital Signs Date Time Temp Pulse Resp B/P (MAP) Pulse Ox O2 Delivery O2 Flow Rate FiO2 01/24/19 00:00 2.0 01/24/19 00:00 97.2 77 18 112/50 (70) 98 01/23/19 14:00 Nasal Cannula I&O- Last 24 Hours up to 6 AM 01/24/19 06:00 Intake Total 1120 ml Output Total 1000 ml Balance 120 ml Laboratory Data 24H LABS Laboratory Tests 2 01/23/19 11:35: Bedside Glucose (Misc Panel) 212H 01/23/19 16:37: Bedside Glucose (Misc Panel) 242H 01/23/19 21:54: Bedside Glucose (Misc Panel) 210H 01/24/19 04:54: Nucleated Red Blood Cells % (auto) 0.0, Anion Gap 8, Glomerular Filtration Rate > 60.0, Blood Urea Nitrogen 29H, Creatinine 0.93, Sodium Level 140, Potassium Level 3.8, Chloride Level 106, Carbon Dioxide Level 26, Calcium Level 8.3L CBC/BMP Laboratory Tests 01/24/19 04:54 Red Blood Count 3.32 L, Mean Corpuscular Volume 93.7, Mean Corpuscular Hemoglobin 31.0, Mean Corpuscular Hemoglobin Concent 33.1, Red Cell Distribution Width 15.3 H, Calcium Level 8.3 L Microbiology Microbiology 01/22/19 Blood Culture - Preliminary, Resulted No Growth after 48 hours. All Specime... 01/22/19 Blood Culture - Preliminary, Resulted No Growth after 48 hours. All Specime... 01/22/19 Respiratory Virus Panel (PCR) ([facility]) - Final, Complete SHERIF SOLIS MD Jan 24, 2019 06:38
--- NOTE | 2019-01-24 15:02 | ECHO ---
DATE OF PROCEDURE: 01/22/2019 AGE: 88. GENDER: Female. Height 62 inches, weight 147 pounds, body surface area 1.68 sq m. Inpatient, intensive care unit (ICU), room 3205. REFERRING PHYSICIAN: Petty Tate MD INDICATION: Dyspnea. MEASUREMENTS: 2D measurements: RV - 3.0 cm. LV - 3.9 cm. Septum 1.2 cm. Posterior wall 1.2 cm. Aortic root 2.6 cm. LA - 3.7 cm. LVEF 75%. Doppler measurements: AV - 3.3 m/s. LVOT - 1.0 m/s. LVOT diameter 2.0 cm. Mean AV systolic gradient 27 mmHg. Dimensionless index 0.31. MV - E 126. A 184. EE ratio 0.7. Early mitral deceleration time 236 ms. PV - 0.9 m/s. Pulmonary artery acceleration time 95 ms. RVSP 46 mmHg. IVC - 1.6 cm. COMMENTS: Normal sinus rhythm without intraventricular conduction disturbance. M-mode and two-dimensional echocardiography was performed with pulsed, continuous wave, color flow, and tissue Doppler studies. Borderline concentric left ventricle hypertrophy with hyperkinetic wall motion. Left atrial size upper limits of normal, cannot comment on LV diastolic function with the presence of mitral valve disorder. Normal right heart chamber sizes and wall motion with Doppler evidence of moderate pulmonary hypertension. Normal IVC size and collapse against an elevated central venous pressure. Moderate calcific aortic stenosis without insufficiency. Severe mitral annular calcification with at least mild mitral stenosis (mean gradient in diastole 6 mmHg). Very mild insufficiency. Normal-appearing tricuspid valve with mild insufficiency. No apparent intracardiac mass or pericardial effusion.
[2019-01-24 17:00] VITALS: BP 122/58
[2019-01-24] MEDS: LACTOBACILLUS ACIDOPHILUS CAP (BACID) PO SCH (18:00)
[2019-01-24] MEDS ORDERED: predniSONE 20 MG TAB PO ONE (19:00)
[2019-01-24 20:00] VITALS: BP 119/77
[2019-01-24] MEDS ORDERED: MOXIFLOXACIN 400 MG TAB PO ONE (21:00)
[2019-01-24] MEDS: CLINDAMYCIN 150 MG CAP PO SCH (22:13)
[2019-01-24] MEDS: NORCO, ANEXSIA 5/325MG TABLET (HYDROcodone/ACETAMINOPHEN) PO SCH (22:15)
[2019-01-24 22:45] VITALS: BP 138/79
[2019-01-24] MEDS: IPRATROPIUM 0.5MG/ALBUTEROL 2.5MG INH SOL UD 3ML (DUONEB)(J7620) NEB PRN (23:18)
[2019-01-25] MEDS: IPRATROPIUM 0.5MG/ALBUTEROL 2.5MG INH SOL UD 3ML (DUONEB)(J7620) NEB SCH ×4 (02:35→20:00)
[2019-01-25] MEDS: SLF 3 ML SYR IV SCH (05:18)
[2019-01-25] MEDS: CLINDAMYCIN 150 MG CAP PO SCH ×3 (05:26→23:23)
[2019-01-25 05:56] LABS: HEMATOCRIT 32.6 % (36.0-47.0); HEMOGLOBIN 10.7 g/dl (12.0-15.5); MEAN CORPUSCULAR HEMOGLOBIN 30.1 pg (27.0-33.0); MEAN CORPUSCULAR HGB CONC 32.8 g/dl (32.0-36.5); MEAN CORPUSCULAR VOLUME 91.6 fl (80.0-96.0); PLATELET COUNT, AUTOMATED 256 10^3/uL (150-450); RED BLOOD COUNT 3.56 10^6/uL (4.00-5.40)
[2019-01-25 06:00] VITALS: BP 113/66
[2019-01-25 06:19] LABS: CREATININE FOR GFR 1.05 MG/DL (0.55-1.30); GLOMERULAR FILTRATION RATE 52.8 (>32)
[2019-01-25 06:20] LABS: CALCIUM LEVEL 8.8 MG/DL (8.8-10.2)
[2019-01-25] MEDS: MOXIFLOXACIN 400 MG TAB PO SCH (07:03)
[2019-01-25] MEDS: TIOTROPIUM INHALER/CAPSULE (SPIRIVA) INH SCH (07:36)
[2019-01-25] MEDS: SYMBICORT 80/4.5MCG INHALER 6GM INH SCH ×2 (07:36→20:09)
[2019-01-25] MEDS: HumaLOG INSULIN (NovoLOG) PER UNIT SC SCH ×4 (08:16→20:58)
[2019-01-25] MEDS: OMEPRAZOLE 20 MG CAP PO SCH ×2 (08:17→20:58)
[2019-01-25] MEDS: HEPARIN SOD (PORCINE) 5000 UNITS/ML VIAL SC SCH ×2 (08:17→20:58)
[2019-01-25] MEDS: ASPIRIN 81 MG CHEW TABLET PO SCH (08:17)
[2019-01-25] MEDS: LACTOBACILLUS ACIDOPHILUS CAP (BACID) PO SCH ×2 (08:17→17:10)
[2019-01-25] MEDS: CLOPIDOGREL 75 MG TAB PO SCH (08:17)
[2019-01-25] MEDS: PRAVASTATIN 20 MG TAB PO SCH (08:18)
[2019-01-25] MEDS: METOPROLOL SUCC *XL* 25MG TAB (TopROL *XL*) PO SCH (09:00)
--- NOTE | 2019-01-25 13:09 | IPNPDOC ---
Date Seen The patient was seen on 01/25/19. Progress Note SUBJECTIVE: lost iv access yesterday, and was given po clinda for possible aspiration and anaerobic coverage, and avelox for gram negative. afebrile no chills or worsening cough, or sob overnight. anxious to go home. passed physical therapy. dc plans saturday if no other issues overnight. PHYSICAL EXAMINATION: VITAL SIGNS: PLS SEE BELOW GENERAL: Pleasant hard of hearing elderly female sitting in a chair accompanied by her son awake alert oriented speaking in complete sentences no a cute distress, mildly tachypnic HEENT: Moist mucous membranes no elevation and CVP appreciated CARDIOVASCULAR: S1 S2 regular no systolic ejection murmur. RESPIRATORY: Clear to auscultation bilaterally at the apices bilaterally, left lower lobe rails prolonged expiratory phase throughout. ABDOMINAL: Bowel sounds present abdomen soft and nontender EXTREMITIES: Chronic hyperpigmentation of the pretibial area bilaterally 1-2+ edema bilaterally exquisite tenderness to palpation NEUROLOGICAL: Spontaneously moves all 4 extremities cranial 2 through 12 grossly intact no gross focal deficits appreciated PSYCHOLOGICAL: Appropriate LABORATORY DATA: See below. MICROBIOLOGY: Please see below. IMAGING: CT angiography:No evidence for acute pulmonary embolus. Clinical correlation for mild pulmonary arterial hypertension. Mild cardiac enlargement and atherosclerosis including coronary artery disease. Pulmonary opacities to be correlated for infiltrate/pneumonia. Pulmonary findings discussed above in detail. Slightly enlarged mediastinal and hilar lymph nodes may be reactive, however short interval followup is advised to confirm resolution. Other incidental findings discussed In full report ASSESSMENT AND PLAN: Patient is a 88-year-old female with significant COPD and follows with pulm onologist at her baseline on chronic O2 at night and with naps as well as chronic prednisone therapy 5 mg daily. 3 years ago she quit smoking after [id number] history of when she moved in with her son. Her son is retired they go back and forth between [address] [place] [address] and multiple homes appear in the [facility]. They recently drove from [facility] of this past weekend [address] the patient was notably more short of breath and coughing significantly more her dyspnea on exertion appeared to worsen over the last 2 days prompting Saturday presented to the emergency room today. The patient herself, she did not want to come to the hospital but does admit to significant shortness of breath. Patient does not feel improved emergency room at this time Otherwise patient denies weight loss, hair loss, headache, visual changes, chest pain, nausea, vomiting, diarrhea, abdominal pain, muscle aches, worsening arthritis, change in mood. The patient was recently diagnosed with moderate to moderately severe aortic stenosis as well as new onset atrial fibrillation. The patient's son also tells me that she recently was diagnosed with an esophageal stricture status post dilation 3 months ago, prior to the dilation she had several days' worth of pills and food in her esophagus. Acute on chronic hypoxic respiratory failure: -due to multilobar pneumonia, possible COPD exacerbation, possible symptomatic -s/p IV Zosyn 01/22/19 -01/24 due to lost iv access -clinda and avelox 01/24-present -keep o2 sat 88-92% -due to possible aspiration, swallow therapist consulted.Pt was evaluated by speech therapy for dysphagia with oral dietary recommendations."Recommend continue current diet as tolerated - level 3 mechanically altered and thin liquids, med's in puree assist prn, upright positioning please. No penetration/aspiration observed on exam and residues were negligible. D/t resp iratory status w/ increased SOB during meals and c/o intermittent globus sensation w/ specific regular solids, will continue PO trials regular solids at bedside prior to diet upgrade." Multilobar Pneumonia -IV Zosyn 01/22/19 -01/24/19 due to lost iv access -on po clinda for aspiration and avelox for gram negatives, po 01/24 due to lost iv access -keep o2 sat 88-92% -sputum cx, blood cx, urine legionella urine strep pneumo. Dysphagia -Pt was evaluated by speech therapy for dysphagia with oral dietary recommendations."Recommend continue current diet as tolerated - level 3 mechanically altered and thin liquids, med's in puree assist prn, upright positioning please. No penetration/aspiration observed on exam and residues were negligible. D/t respiratory status w/ increased SOB during meals and c/o intermittent globus sensation w/ specific regular solids, will continue PO trials regular solids at bedside prior to diet upgrade." lost iv access: plan: -pt was receiving iv solumedrol and iv zosyn -change to po prednisone, one dose of po avelox, and if mrsa or aspiration po clindamycin -po bacid to decrease risk of cdiff -if temp>100.4 overnight, or increased white count, will ask surgery for central line Lactic acidosis: Likely secondary to increased work of breathing I will hold her diuretic although she appears to be perfusing well with normotensive blood pr essure monitor for the next 24 hours Abnormal troponin: Likely type II demand ischemia related to her respiratory distress already trending downward given her history of carotid disease peripheral arterial disease she will certainly has a degree of coronary artery disease could consider outpatient cardiology ischemic eval after her acute medical illness has resolved COPD -o2 to keep sat 88-92% o2sat -iv solumedrol Aortic Stenosis -may be contributing to pt's sob. -echo report pending Diabetes mellitus: -slide scale -fingersticks with coverage Atrial fibrillation: Previous conversations were had on the outpatient setting the decision was made not to anticoagulate her, she has a new DVT not initiate anticoagulation at this time. She is rate controlled with metoprolol and diltiazem. Peripheral arterial disease: Recommended to have amputation for end-stage peripheral arterial disease the patient follows with Dr Palmer in [place] vascular surgery recommended outpatient follow-up with him. Continue with hydrocodone for pain control aspirin Plavix statin DVT PROPHYLAXIS:Heparin dispo: passed hse and anxious to go home. VS, I&O, 24H, Fishbone Vital Signs/I&O Vital Signs Date Time Temp Pulse Resp B/P (MAP) Pulse Ox O2 Delivery O2 Flow Rate FiO2 01/25/19 06:00 96.6 97 20 113/66 (82) 96 2.0 01/23/19 14:00 Nasal Cannula I&O- Last 24 Hours up to 6 AM 01/25/19 06:00 Intake Total 1000 ml Output Total 300 ml Balance 700 ml Laboratory Data 24H LABS Laboratory Tests 2 01/24/19 11:53: Bedside Glucose (Misc Panel) 200H 01/24/19 17:08: Bedside Glucose (Misc Panel) 236H 01/24/19 20:26: Bedside Glucose (Misc Panel) 279H 01/25/19 05:34: Nucleated Red Blood Cells % (auto) 0.0 CBC/BMP Laboratory Tests 01/25/19 05:34 Red Blood Count 3.56 L, Mean Corpuscular Volume 91.6, Mean Corpuscular Hemoglobin 30.1, Mean Corpuscular Hemoglobin Concent 32.8, Red Cell Distribution Width 15.2 H Microbiology Microbiology 01/22/19 Blood Culture - Preliminary, Resulted No Growth after 72 hours. All specime... 01/22/19 Blood Culture - Preliminary, Resulted No Growth after 72 hours. All specime... 01/24/19 MRSA Screen, Received Pending 01/22/19 Respiratory Virus Panel (PCR) ([facility]) - Final, Complete SHERIF SOLIS MD Jan 25, 2019 06:16
[2019-01-25 14:00] VITALS: BP 136/68
[2019-01-25] MEDS: NORCO, ANEXSIA 5/325MG TABLET (HYDROcodone/ACETAMINOPHEN) PO SCH (21:00)
[2019-01-25 22:00] VITALS: BP 146/70
[2019-01-25] MEDS: IPRATROPIUM 0.5MG/ALBUTEROL 2.5MG INH SOL UD 3ML (DUONEB)(J7620) NEB PRN (22:54)
[2019-01-25] MEDS: CEPACOL LOZENGE PO PRN (23:23)
[2019-01-26] MEDS: IPRATROPIUM 0.5MG/ALBUTEROL 2.5MG INH SOL UD 3ML (DUONEB)(J7620) NEB SCH ×3 (02:16→13:24)
[2019-01-26] MEDS ORDERED: BENZONATATE 100 MG CAP PO PRN (02:45)
[2019-01-26] MEDS ORDERED: CLIN150C14 PO (05:26)
[2019-01-26] MEDS ORDERED: MOXI400T11 PO (05:26)
[2019-01-26] MEDS ORDERED: BACITAB PO (05:30)
[2019-01-26] MEDS: CLINDAMYCIN 150 MG CAP PO SCH ×2 (05:48→13:53)
[2019-01-26] MEDS: MOXIFLOXACIN 400 MG TAB PO SCH (05:48)
[2019-01-26] MEDS: CEPACOL LOZENGE PO PRN (05:54)
[2019-01-26 06:00] VITALS: BP 129/57
--- NOTE | 2019-01-26 06:04 | DS.PDOC ---
Discharge Summary General Date of Admission Jan 22, 2019 at 04:59 Date of Discharge January 26, 2019 Discharge Summary DISCHARGE DIAGNOSES: Acute on chronic hypoxic respiratory failure: Multilobar Pneumonia Dysphagia lost iv access: Lactic acidosis: Likely secondary to increased work of breathing Abnormal troponin: Likely type II demand ischemia related to her respiratory distressl COPD Mild Mitral Stenosis Moderate Aortic Stenosis Diabetes mellitus: Atrial fibrillation Peripheral arterial disease: DISCHARGE MEDS: PLS SEE BELOW HISTORY OF PRESENTING ILLNESS: Patient is a 88-year-old female with significant COPD and follows with supervisor public message service at her baseline on chronic O2 at night and with naps as well as chronic prednisone therapy 5 mg daily. 3 years ago she quit smoking after [id number] history of when she moved in with her son. Her son is retired they go back and forth between [address] [place] [address] and multiple homes appear in the [facility]. They recently drove from [facility] of this past weekend [address] the patient was notably more short of breath and coughing significantly more her dyspnea on exertion appeared to worsen over the last 2 days prompting Saturday presented to the emergency room today. The patient herself, she did not want to come to the hospital but does admit to significant shortness of breath. Patient does not feel improved emergency room at this time Otherwise patient denies weight loss, hair loss, headache, visual changes, chest pain, nausea, vomiting, diarrhea, abdominal pain, muscle aches, worsening arthritis, change in mood. The patient was recently diagnosed with moderate to moderately severe aortic stenosis as well as new onset atrial fibrillation. The patient's son also tells me that she recently was diagnosed with an esophageal stricture status post dilation 3 months ago, prior to the dilation she had several days' worth of pills and food in her esophagus. Acute on chronic hypoxic respiratory failure: -due to multilobar pneumonia, possible COPD exacerbation, possible symptomatic -s/p IV Zosyn 01/22/19 -01/24 due to lost iv access -clinda and avelox 01/24-present -keep o2 sat 88-92% -due to possible aspiration, swallow therapist consulted.Pt was evaluated by speech therapy for dysphagia with oral dietary recommendations."Recommend continue current diet as tolerated - level 3 mechanically altered and thin liquids, med's in puree assist prn, upright positioning please. No penetration/aspiration observed on exam and residues were negligible. D/t respiratory status w/ increased SOB during meals and c/o intermittent globus sensation w/ specific regular solids, will continue PO trials regular solids at bedside prior to diet upgrade." Multilobar Pneumonia -IV Zosyn 01/22/19 -01/24/19 due to lost iv access -on po clinda for aspiration and avelox for gram negatives, po 01/24 due to lost iv access -keep o2 sat 88-92% -sputum cx, blood cx, urine legionella urine strep pneumo. Dysphagia -Pt was evaluated by speech therapy for dysphagia with oral dietary recommendations."Recommend continue current diet as tolerated - level 3 mechanically altered and thin liquids, med's in puree assist prn, upright positioning please. No penetration/aspiration observed on exam and residues were negligible. D/t respiratory status w/ increased SOB during meals and c/o intermittent globus sensation w/ specific regular solids, will continue PO trials regular solids at bedside prior to diet upgrade." lost iv access: plan: -pt was receiving iv solumedrol and iv zosyn -change to po prednisone, one dose of po avelox, and if mrsa or aspiration po clindamycin -po bacid to decrease risk of cdiff -if temp>100.4 overnight, or increased white count, will ask surgery for central line Lactic acidosis: Likely secondary to increased work of breathing I will hold her diuretic although she appears to be perfusing well with normotensive blood pressure monitor for the next 24 hours Abnormal troponin: Likely type II demand ischemia related to her respiratory distress already trending downward given her history of carotid disease peripheral arterial disease she will certainly has a degree of coronary artery disease could consider outpatient cardiology ischemic eval after her acute medical illness has resolved COPD -o2 to keep sat 88-92% o2sat -iv solumedrol Aortic Stenosis -may be contributing to pt's sob. -echo report pending Diabetes mellitus: -slide scale -fingersticks with coverage Atrial fibrillation: Previous conversations were had on the outpatient setting the decision was made not to anticoagulate her, she has a new DVT not initiate anticoagulation at this time. She is rate controlled with metoprolol and diltiazem. Peripheral arterial disease: Recommended to have amputation for end-stage peripheral arterial disease the patient follows with Dr Palmer in [place] vascular surgery recommended outpatient follow-up with him. Continue with hydrocodone for pain control aspirin Plavix statin DVT PROPHYLAXIS:Heparin DISCHARGE PHYSICAL EXAMINATION: VITAL SIGNS: PLS SEE BELOW GENERAL: Pleasant hard of hearing elderly female sitting in a chair accompanied by her son awake alert oriented speaking in complete sentences no acute distress HEENT: Moist mucous membranes no elevation and CVP appreciated CARDIOVASCULAR: S1 S2 regular no systolic ejection murmur. RESPIRATORY: Clear to auscultation bilaterally at the apices bilaterally, left lower lobe rails prolonged expiratory phase throughout. ABDOMINAL: Bowel sounds present abdomen soft and nontender EXTREMITIES: Chronic hyperpigmentation of the pretibial area bilaterally 1-2+ edema bilaterally exquisite tenderness to palpation NEUROLOGICAL: Spontaneously moves all 4 extremities cranial 2 through 12 grossly intact no gross focal deficits appreciated PSYCHOLOGICAL: Appropriate LABORATORY DATA: See below. MICROBIOLOGY: Please see below. IMAGING: CT angiography:No evidence for acute pulmonary embolus. Clinical correlation for mild pulmonary arterial hypertension. Mild cardiac enlargement and atherosclerosis including coronary artery disease. Pulmonary opacities to be correlated for infiltrate/pneumonia. Pulmonary findings discussed above in detail. Slightly enlarged mediastinal and hilar lymph nodes may be reactive, however short interval followup is advised to confirm resolution. Other incidental findings discussed In full report Echo: Borderline concentric left ventricle hypertrophy with hyperkinetic wall motion. Left atrial size upper limits of normal, cannot comment on LV diastolic function with the presence of mitral valve disorder. Normal right heart chamber sizes and wall motion with Doppler evidence of moderate pulmonary hypertension. Normal IVC size and collapse against an elevated central venous pressure. Moderate calcific aortic stenosis without insufficiency. Severe mitral annular calcification with at least mild mitral stenosis (mean gradient in diastole 6 mmHg). Very mild insufficiency. Normal-appearing tricuspid valve with mild insufficiency. TIME SPENT ON DISCHARGE: 32 min Vital Signs/I&Os Vital Signs Date Time Temp Pulse Resp B/P (MAP) Pulse Ox O2 Delivery O2 Flow Rate FiO2 01/25/19 22:00 97.6 92 18 146/70 (95) 97 2.0 01/23/19 14:00 Nasal Cannula I&O- Last 24 Hours up to 6 AM 01/26/19 06:00 Intake Total 1636 ml Output Total 500 ml Balance 1136 ml Laboratory Data Labs 24H Laboratory Tests 2 01/25/19 11:36: Bedside Glucose (Misc Panel) 214H 01/25/19 16:23: Bedside Glucose (Misc Panel) 208H 01/25/19 20:02: Bedside Glucose (Misc Panel) 268H 01/26/19 05:45: CBC/BMP FSBS Laboratory Tests Test 01/25/19 11:36 01/25/19 16:23 01/25/19 20:02 Range/Units Bedside Glucose (Misc Panel) 214 208 268 83-110 MG/DL Microbiology Microbiology 01/22/19 Blood Culture - Preliminary, Resulted No Growth after 72 hours. All specime... 01/22/19 Blood Culture - Preliminary, Resulted No Growth after 72 hours. All specime... 01/24/19 MRSA Screen, Received Pending 01/22/19 Respiratory Virus Panel (PCR) ([facility]) - Final, Complete Discharge Medications Scheduled Aspirin (Aspirin EC) 81 Mg Tablet.dr, 81 MG PO QHS, (Reported) Budesonide/Formoterol (Symbicort 80-4.5 Mcg Inhaler) 60 Puff/Inhaler Aers, 2 PUFF INH BID, (Reported) Cholecalciferol (Vitamin D3) (Vitamin D3) 2,000 Unit Capsule, 2,000 UNIT PO QHS, (Reported) Cilostazol (Cilostazol) 50 Mg Tablet, 50 MG PO BID, (Reported) Clindamycin Hcl (Clindamycin HCl) 150 Mg Capsule, 600 MG PO Q8H Clopidogrel Bisulfate (Clopidogrel) 75 Mg Tablet, 75 MG PO DAILY, (Reported) Diltiazem HCl (Diltiazem 24Hr ER) 120 Mg Cap.er.24h, 120 MG PO DAILY, (Reported) Furosemide (Furosemide) 20 Mg Tablet, 20 MG PO DAILY, (Reported) Hydrocodone/Acetaminophen ([place] 5-325 Tablet) 1 Each Tablet, 1 TAB PO QHS, (Reported) Insulin Glargine,Hum.rec.anlog (Totorin Solfernandaar) 300 Unit/1 Ml Insuln.pen, 35 UNIT SC DAILY, (Reported) Ipratropium/Albuterol Sulfate (Iprat-Albut 0.5-3(2.5) mg/3 ml) 3 Ml Ampul.neb, 3 ML INH QID, (Reported) L.acidoph/L.bulg/B.bif/S.therm (Bacid Caplet) 1 Each Tablet, 1 TAB PO AC Metoprolol Succinate (Metoprolol Succinate) 50 Mg Tab.er.24h, 25 MG PO DAILY, (Reported) Moxifloxacin HCl (Moxifloxacin HCl) 400 Mg Tablet, 400 MG PO DAILY@06 Omeprazole (Omeprazole) 20 Mg Capsule.dr, 20 MG PO BID, (Reported) Potassium Chloride (Potassium Chloride) 10 Meq Tab.er.prt, 10 MEQ PO DAILY, (Reported) Pravastatin Sodium (Pravastatin Sodium) 20 Mg Tablet, 20 MG PO DAILY, (Reported) Prednisone (Prednisone) 5 Mg Tablet, 5 MG PO DAILY, (Reported) Sitagliptin Phosphate (Januvia) 25 Mg Tablet, 25 MG PO DAILY, (Reported) Tiotropium [place] Monohydrate (Spiriva) 18 Mcg Cap.w.dev, 1 INHALATION INH DAILY, (Reported) Scheduled PRN Hydrocodone/Acetaminophen ([place] 5-325 Tablet) 1 Each Tablet, 1 TAB PO TID PRN for PAIN, (Reported) Allergies Coded Allergies: codeine (Verified Allergy, Unknown, 01/21/19) Sulfa (Sulfonamide Antibiotics) (Verified Adverse Reaction, Mild, RASH , 01/21/19) erythromycin base (Verified Adverse Reaction, Mild, NAUSEA, 01/21/19) SHERIF SOLIS MD Jan 26, 2019 06:03
[2019-01-26 06:11] LABS: HEMATOCRIT 34.3 % (36.0-47.0); HEMOGLOBIN 11.4 g/dl (12.0-15.5); MEAN CORPUSCULAR HEMOGLOBIN 30.2 pg (27.0-33.0); MEAN CORPUSCULAR HGB CONC 33.2 g/dl (32.0-36.5); MEAN CORPUSCULAR VOLUME 90.7 fl (80.0-96.0); PLATELET COUNT, AUTOMATED 274 10^3/uL (150-450); RED BLOOD COUNT 3.78 10^6/uL (4.00-5.40)
[2019-01-26 06:26] LABS: BLOOD UREA NITROGEN 35 MG/DL (7-18); CALCIUM LEVEL 8.1 MG/DL (8.8-10.2); CARBON DIOXIDE LEVEL 30 MEQ/L (21-32); CHLORIDE LEVEL 104 MEQ/L (98-107); CREATININE FOR GFR 0.86 MG/DL (0.55-1.30); GLOMERULAR FILTRATION RATE > 60.0 (>32); GLUCOSE, FASTING 133 MG/DL (70-100); POTASSIUM SERUM 3.9 MEQ/L (3.5-5.1); SODIUM LEVEL 141 MEQ/L (136-145)
[2019-01-26] MEDS: SYMBICORT 80/4.5MCG INHALER 6GM INH SCH (07:33)
[2019-01-26] MEDS: TIOTROPIUM INHALER/CAPSULE (SPIRIVA) INH SCH (07:33)
--- NOTE | 2019-01-26 07:46 | REP ---
Examination Requested: Cookie Swallow Reason For Exam: Recent esophageal dilation, coughing The procedure was performed by CASSIDY England, under the direct supervision of Dr. Olivera. The procedure was performed with Adriana Fabian from speech pathology present. 5 ml aliquots of thin, pudding, mixed fruit, soft food, hard food and pill consistency barium was administered. No aspiration or penetration was visualized throughout the course of the exam. The detailed report of this examination will be provided by speech pathology. 2.7 minutes of fluoroscopy time was utilized for this procedure. Reviewed by CASSIDY Singh 01/22/2019 04:35 P Electronically Signed by Jose Eduardo Olivera MD 01/26/2019 07:38 A
[2019-01-26] MEDS: HumaLOG INSULIN (NovoLOG) PER UNIT SC SCH ×2 (08:36→11:58)
[2019-01-26] MEDS: HEPARIN SOD (PORCINE) 5000 UNITS/ML VIAL SC SCH (08:37)
[2019-01-26 08:39] VITALS: BP 116/62
[2019-01-26] MEDS: METOPROLOL SUCC *XL* 25MG TAB (TopROL *XL*) PO SCH (08:39)
[2019-01-26] MEDS: LACTOBACILLUS ACIDOPHILUS CAP (BACID) PO SCH (08:40)
[2019-01-26] MEDS: ASPIRIN 81 MG CHEW TABLET PO SCH (08:40)
[2019-01-26] MEDS: CLOPIDOGREL 75 MG TAB PO SCH (08:40)
[2019-01-26] MEDS: OMEPRAZOLE 20 MG CAP PO SCH (08:40)
[2019-01-26] MEDS: PRAVASTATIN 20 MG TAB PO SCH (08:41)
== END 2019-01-26 14:12 | disposition home or self-care (01) | DRG 193 ==
LOC: M ED 23:36 → M ED INP 01-22 04:59 → M ICU 01-22 06:23 → M PCU 01-22 21:49 → M MSPAV 01-24 22:39
PROVIDERS: ADMIT Internal Medicine; ATTEND General Practice
DX: J18.1 Lobar pneumonia, unspecified organism (principal); J96.21 Acute and chronic respiratory failure with hypoxia; E87.2 Acidosis; I24.8 Other forms of acute ischemic heart disease; J44.0 Chronic obstructive pulmonary disease with (acute) lower respiratory infection; J44.1 Chronic obstructive pulmonary disease with (acute) exacerbation; E78.5 Hyperlipidemia, unspecified; F39 Unspecified mood [affective] disorder; R13.10 Dysphagia, unspecified; I25.10 Atherosclerotic heart disease of native coronary artery without angina pectoris; E11.51 Type 2 diabetes mellitus with diabetic peripheral angiopathy without gangrene; R60.0 Localized edema; I48.91 Unspecified atrial fibrillation; I08.3 Combined rheumatic disorders of mitral, aortic and tricuspid valves; Z79.52 Long term (current) use of systemic steroids; Z87.891 Personal history of nicotine dependence; Z95.820 Peripheral vascular angioplasty status with implants and grafts; Z99.81 Dependence on supplemental oxygen

== ENCOUNTER 2020-01-28 11:27 | Inpatient (IN) | payer MEDICARE, OTHER ==
[~2020-01-28] VITALS: Ht 157.5 cm; Wt 70.2 kg
[2020-01-28] VITALS (9 sets, daily range): BP systolic 104–110; BP diastolic 56–62; O2SAT 93–98
[~2020-01-28 11:27] MED LIST changes: +ASPI81TA27 PO; +BACITAB PO; +CART120C PO; +CILO50TA PO; +CLIN150C14 PO; +D3 S1CAP3 PO; +DILT120C78 PO; +FURO20TA2 PO; +FUROSEMIDE 20 MG TAB PO SCH; +HYDR-3713 PO; +IPRA0.00 INH; +JANU25TA PO; +METO1TAB32 PO; +METO1TAB7 PO; +MOXI400T11 PO; +NORC1TAB7 PO; +OMEP1CAP73 PO; +POTA10TA17 PO; +SITagliptin 50 MG TAB (JANUVIA) PO SCH; +TIOT18INH INH; +TOUJ1.2I SC
[2020-01-28 12:01] LABS: ABG BASE EXCESS -0.5 (-2.0-2.0); ABG HCO3 25.4 MEQ/L (22.0-26.0); ABG O2 SATURATION 95.1 % (95.0-99.0); ABG PARTIAL PRESSURE CO2 46.9 mmHg (35.0-45.0); ABG PARTIAL PRESSURE O2 78.9 mmHg (75.0-100.0); ABG TOTAL CO2 26.8 MEQ/L (23.0-31.0); ABG pH (ARTERIAL) 7.351 UNITS (7.350-7.450)
--- NOTE | 2020-01-28 12:06 | REP ---
Clinical: Chest pain. Comparison: 01/22/2019. Findings: Diffuse chronic fibrosis and emphysematous changes are again noted. Superimposed left mid to lower lobe alveolar infiltrates and consolidations are now identified. Left effusion cannot be excluded. No pneumothorax. Mediastinum and cardiac silhouette are incompletely evaluated due to overlying opacities. Skeletal structures are intact. Impression: 1. Left lower lobe opacities and consolidations consistent with acute pneumonia and possible effusion. Electronically Signed by Jose Eduardo Olivera MD 01/28/2020 11:57 A
[2020-01-28 12:13] LABS: BASO % 0.2 % (0.0-1.0); EOS # 0.1 10^3/uL (0.0-0.5); EOS % 0.5 % (0.0-3.0); HEMATOCRIT 37.4 % (36.0-47.0); HEMOGLOBIN 11.7 g/dl (12.0-15.5); LYMPH # 1.3 10^3/uL (1.5-5.0); LYMPH % 5.5 % (24.0-44.0); MEAN CORPUSCULAR HGB CONC 31.3 g/dl (32.0-36.5); MEAN CORPUSCULAR VOLUME 92.8 fl (80.0-96.0); MONO # 0.7 10^3/uL (0.0-0.8); MONO % 3.1 % (0.0-5.0); NEUTROPHILS # 20.3 10^3/uL (1.5-8.5); PLATELET COUNT, AUTOMATED 312 10^3/uL (150-450); RED BLOOD COUNT 4.03 10^6/uL (4.00-5.40); WHITE BLOOD COUNT 22.6 10^3/uL (4.0-10.0)
[2020-01-28] MEDS ORDERED: methylPREDNISolone INJ 125 MG/2 ML VIAL (J2930) IV ONE (12:15)
[2020-01-28] MEDS ORDERED: COMBIVENT RESPIMAT 100-20MCG INHALER 4GM INH ONE (12:15)
[2020-01-28 12:24] LABS: INR 1.06; PROTHROMBIN TIME 13.5 SECONDS (11.8-14.0)
[2020-01-28 12:25] LABS: PARTIAL THROMBOPLASTIN TIME 25.2 SECONDS (25.0-38.4)
[2020-01-28] MEDS ORDERED: HYDR-2808 PO (12:48)
[2020-01-28] MEDS ORDERED: VITMTA PO (12:48)
[2020-01-28] MEDS ORDERED: DOCU-129 PO (12:48)
[2020-01-28] MEDS ORDERED: VITAD1000T PO (12:48)
[2020-01-28] MEDS ORDERED: SANT250O8 TOP (12:48)
[2020-01-28] MEDS ORDERED: OMEP-221 PO (12:48)
[2020-01-28] MEDS ORDERED: SUCR1TA PO (12:48)
[2020-01-28 12:50] LABS: ALBUMIN 2.9 GM/DL (3.2-5.2); ALT/SGPT 21 U/L (12-78); BILIRUBIN,DIRECT 0.1 MG/DL (0.0-0.2); BILIRUBIN,TOTAL 0.2 MG/DL (0.2-1.0); BLOOD UREA NITROGEN 25 MG/DL (7-18); CALCIUM LEVEL 8.6 MG/DL (8.8-10.2); CARBON DIOXIDE LEVEL 28 MEQ/L (21-32); CHLORIDE LEVEL 102 MEQ/L (98-107); CREATININE FOR GFR 0.82 MG/DL (0.55-1.30); GLOMERULAR FILTRATION RATE > 60.0 (>32); GLUCOSE, FASTING 155 MG/DL (70-100); LIPASE 63 U/L (73-393); POTASSIUM SERUM 4.8 MEQ/L (3.5-5.1); SODIUM LEVEL 135 MEQ/L (136-145); TOTAL PROTEIN 6.8 GM/DL (6.4-8.2)
[2020-01-28 12:52] LABS: CK-MB VALUE MASS 1.8 NG/ML (<3.6); CPK CREATINE PHOSPHOKINASE 66 U/L (26-192); MB/CK RELATIVE INDEX 2.73 (< OR =4); NT-PRO BNP 698 PG/ML (<450)
[2020-01-28] MEDS ORDERED: VANCOMYCIN HCL 1,000 MG, VIAL MATE ADAPTER 1 EACH in D5W 250 ML IV ONE (13:15)
[2020-01-28] MEDS ORDERED: PIPERACILLIN/TAZOBACTAM SOD 4.5 GM in D5W MINI-BAG PLUS 50 ML IV ONE (13:15)
[2020-01-28] MEDS ORDERED: GLUCOSE 4GM CHEW TABLET PO PRN (14:00)
[2020-01-28] MEDS ORDERED: GLUCAGON INJ 1MG VIAL SC PRN (14:00)
[2020-01-28] MEDS ORDERED: DEXTROSE 50% 50 ML SYRINGE IV PRN (14:00)
--- NOTE | 2020-01-28 14:35 | REP ---
Clinical: Effusion. Pneumonia. Technique: Axial noncontrast images from the thoracic inlet to the upper abdomen with coronal and sagittal re-formations. Findings: [id number] areas of consolidation and scattered areas of alveolar /interstitial infiltrates involving the left upper lobe and left lower lobe along with moderate left pleural effusion. Mild atelectasis involving the posteroapical right upper lobe and right base with small right pleural effusion also identified. Underlying chronic emphysematous changes and interstitial disease noted cardiomegaly and chronic pulmonary vascular congestion. Extensive atherosclerotic changes to the thoracic aorta and coronary arteries again noted and unchanged. Mediastinal and hilar lymph adenopathy is appreciated and likely reactive. Tracheobronchial tree is relatively patent. Surrounding musculoskeletal structures demonstrate degenerative changes. Impression: 1. Large areas of consolidation along with scattered alveolar and interstitial infiltrates primarily involving the left hemithorax along with moderate left pleural effusion, scattered right apical and basilar atelectasis and small right pleural effusion. Findings suggest multifocal pneumonia and require clinical correlation. 2. Cardiomegaly, extensive atherosclerotic disease and evidence for chronic pulmonary vascular congestion. Electronically Signed by Jose Eduardo Olivera MD 01/28/2020 02:26 P
--- NOTE | 2020-01-28 14:43 | PHACANCOPD ---
PHARMACY VANCOMYCIN DOSING Pt Demographics Demographics Patient Age:89 , Weight:73.10 , Gender: female Adjusted Body Weight Date: 01/28/20, Adjusted Body Weight: [59.3] Kg Events Past 24 Hours Events Past 24 Hours: NO: Dialysis, Diuretic Therapy, Change in CrCl, Fever, Elevation in WBC, Pending Diagnostics, Pending Procedures, Other Vancomycin Vancomycin indication: PNEUMONIA Vancomycin Target Ranges: 15-20 mcg/ml Vancomycin Load Y/N: Yes Load Dose Date Time Vancomycin Load Dose: 1.5g Date:01/28/20 Time: 14:00 Vancomycin Dose Date: 01/28/20. Current Vancomycin Dose: [1g IV q24h] Intermittent Dosing?: No Labs Labs Item Value Date Time White Blood Count 22.6 10^3/uL H 01/28/20 1132 Creatinine 0.82 MG/DL 01/28/20 1132 Micro Microbiology 01/28/20 Blood Culture, Received Pending 01/28/20 Respiratory Virus Panel (PCR) ([facility]) - Final, Complete 01/28/20 Blood Culture, Received Pending Creatinine Clearance Date:01/28/20. Creatinine Clearance: [40.5ml/min]. Pending Labs mrsa pcr Assessment and Plan Maintaining Current Dose?: Yes Reason for dose change: No Dose Change Pharmacist Note Pharmacist Note Date: 01/28/20. Pharmacist note: Pt is an 89 year old female being treated for Pneumonia goal trough 15-20mcg/ml. The patient has not received vancomycin here at [facility] in the past. To achieve goal a 1.5g vancomycin IV loading dose was started and maintenance will consist of 1g IV every 24 hours. We will continue to monitor and adjust the dose as needed. PARESH GIRON [facility] Jan 28, 2020 14:43
[2020-01-28] MEDS ORDERED: PILL CUTTER 1 EACH XX PRN (15:00)
[2020-01-28] MEDS ORDERED: VANCOMYCIN HCL 500 MG in D5W MINI-BAG PLUS 100 ML IV ONE (15:00)
--- NOTE | 2020-01-28 15:28 | HPEPDOC ---
General Date of Admission Jan 28, 2020 at 13:46 Date of Service: Jan 28, 2020 Chief Complaint The patient is a 89-year-old female admitted with a reason for visit of Acute Respiratory Failure With Hypoxia. History of Present Illness 89 year old female with PMH of , PAD, COPD with chronic hypoxic respiratory failure 3L at home, CHF, dysphagia, was in her usual state of health till yesterday was at a birthday [employer] playing cards. This morning she was found slumped over the toilet . She was confused could not talk. Complained of SOB. EMS was called. As per EMS she was febrile to 101 and was hypoxic to low 80% she was put on 4 liters of oxygen and brought to ED. In the ED she was confused moa benita and groaning. She complained of SOB, could not lay down was orthopneic. She also complained of right shoulder pain could not rate the pain or characterize it. She did tell me she was in [place] however could not tell me when she was there and when she came back. As per son she had esophageal dilatation done 3 1/2 weeks ago as an outpatient procedure in [place]. During the procedure she had an episode of severe gagging as the anaesthesia was light. They came up 1/1/2 weeks ago and has been doing fine except feeling tired. Last week they had even gone to the vascular lab in [place] for arterial and venous study. CT chest showed 1. Large areas of consolidation along with scattered alveolar and interstitial infiltrates primarily involving the left hemithorax along with moderate left pleural effusion, scattered right apical and basilar atelectasis and small right pleural effusion. Findings suggest multifocal pneumonia and require clinical correlation. 2. Cardiomegaly, extensive atherosclerotic disease and evidence for chronic pulmonary vascular congestion. She was admitted for Pneumonia, pleural effusion, sepsis and metabolic encephalopathy and acute on chronic hypoxic respiratory failure. Home Medications Scheduled Aspirin (Aspirin EC) 81 Mg Tablet.dr, 81 MG PO QHS, (Reported) Budesonide/Formoterol (Symbicort 80-4.5 Mcg Inhaler) 60 Puff/Inhaler Aers, 2 PUFF INH BID, (Reported) Cholecalciferol (Vitamin D3) (Vitamin D3) 1,000 Unit Tablet, 1,000 UNITS PO QHS, (Reported) Cilostazol (Cilostazol) 50 Mg Tablet, 50 MG PO BID, (Reported) Clopidogrel Bisulfate (Clopidogrel) 75 Mg Tablet, 75 MG PO DAILY, (Reported) Collagenase Clostridium Hist. (Santyl) 30 Gm Oint...g., 1 APLCT TOP DAILY, (Reported) APPLY TO RIGHT ANKLE ULCER WITH EACH DRESSING CHANGE Diltiazem HCl (Diltiazem 24Hr ER) 120 Mg Cap.er.24h, 120 MG PO DAILY, (Reported) Furosemide (Furosemide) 20 Mg Tablet, 20 MG PO DAILY, (Reported) Insulin Glargine,Hum.rec.anlog (Toujeo Solostar) 300 Unit/1 Ml Insuln.pen, 35 UNIT SC DAILY, (Reported) Ipratropium/Albuterol Sulfate (Iprat-Albut 0.5-3(2.5) mg/3 ml) 3 Ml Ampul.neb, 1 VIAL INH BID, (Reported) Multivitamins (Thera M Plus Tablet) 1 Each Tablet, 1 TAB PO QHS, (Reported) Omeprazole (Omeprazole) 40 Mg Capsule.dr, 40 MG PO BID, (Reported) Potassium Chloride (Potassium Chloride) 10 Meq Tab.er.prt, 10 MEQ PO DAILY, (Reported) Pravastatin Sodium (Pravastatin Sodium) 20 Mg Tablet, 20 MG PO DAILY, (Reported) Prednisone (Prednisone) 5 Mg Tablet, 5 MG PO DAILY, (Reported) Sitagliptin Phosphate (Januvia) 25 Mg Tablet, 25 MG PO DAILY, (Reported) Sucralfate (Sucralfate) 1 Gm Tablet, 1 GM PO ACHS, (Reported) Tiotropium [place] Monohydrate (Spiriva) 18 Mcg Cap.w.dev, 18 MCG INH DAILY, (Reported) Scheduled PRN Docusate Sodium (Stool Softener) 100 Mg Capsule, 100 MG PO BID PRN for CONSTIPATION, (Reported) Hydrocodone/Acetaminophen (Hydrocodone-Acetamin 5-300 mg) 1 Each Tablet, 1 TAB PO Q8H PRN for PAIN, (Reported) Allergies Coded Allergies: codeine (Verified Allergy, Unknown, 01/21/19) Sulfa (Sulfonamide Antibiotics) (Verified Adverse Reaction, Mild, RASH , 01/21/19) erythromycin base (Verified Adverse Reaction, Mild, NAUSEA, 01/21/19) Past Medical History Medical History Significant peripheral arterial and venous disease with multiple stents and bypasses she's been recommended previously for amputation. 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 Mood disorder COPD with chronic prednisone dependence Aortic stenosis Atrial fibrillation. CHF Surgical History Bilateral peripheral arterial disease interventions numerous procedures and surgeries. Brain aneurysm clipped. Esophageal dilations Family History Significant Family History: No pertinent family hx Reviewed with son Social History * Smoker: former Smoker Alcohol: Denies Drugs: denies Recent Travel/Sick Contacts: Reports: Recent travel ([place]) A-FIB/CHADSVASC A-FIB History Current/History of A-Fib/PAF?: Yes Current PO Anticoag Therapy: No Review of Systems Constitutional: Reports: Fever ENT: Reports: Dysphagia (had esophageal dilatation 3 weeks ago. ); Denies: Head Aches, Ear Pain Skin: Reports: Bruising, Breakdown (ulcers on the right leg) Pulmonary: Reports: Dyspnea, Cough Cardiovascular: Reports: Chest Pain, Orthopnea Gastrointestinal: Denies: Nausea, Vomiting, Abdominal Pain, Diarrhea Genitourinary: Reports: Incontinence Musculoskeletal: Reports: Back Pain, Shoulder Pain Neurological: Reports: Confusion Physical Examination General Exam: Positive: Moderate Distress, Other (confused, moaning and groaning.) Eye Exam: Positive: Conjunctiva & lids normal, EOMI; Negative: Sclera icteric ENT Exam: Positive: Atraumatic, Mucous membr. moist/pink Neck Exam: Positive: Supple; Negative: JVD, thyromegaly Chest Exam: Positive: Rales (left > right ), Diminished (on the left), Other (use of acessory muscles present) Heart Exam: Positive: Tachycardic, Regular Rhythm, Normal S1, Normal S2, Murmurs (systolic murmur) Abdomen Exam: Positive: Normal bowel sounds, Soft, Other (nontender, no guarding or rigidity) Extremity Exam: Positive: Edema, Other (Chronic venous statis changes, ) Skin Exam: Positive: Other skin issue (ulcers on the right leg) Vital Signs Vital Signs Date Time Temp Pulse Resp B/P (MAP) Pulse Ox O2 Delivery O2 Flow Rate FiO2 01/28/20 12:40 98.4 130/80 (97) 01/28/20 12:09 112 30 92 Nasal Cannula 4.0 Laboratory Data Labs 24H Laboratory Tests 2 01/28/20 11:32: Immature Granulocyte % (Auto) 0.7, Neutrophils (%) (Auto) 90.0H, Lymphocytes (%) (Auto) 5.5L, Monocytes (%) (Auto) 3.1, Eosinophils (%) (Auto) 0.5, Basophils (%) (Auto) 0.2, Neutrophils # (Auto) 20.3H, Lymphocytes # (Auto) 1.3L, Monocytes # (Auto) 0.7, Eosinophils # (Auto) 0.1, Basophils # (Auto) 0.0, Nucleated Red Blood Cells % (auto) 0.1H, Prothrombin Time 13.5, Prothromb Time International Ratio 1.06, Activated Partial Thromboplast Time 25.2, Blood Gas Bicarbonate Dequan dard 24.0, Arterial Blood pH 7.351, Arterial Blood Partial Pressure CO2 46.9H, Arterial Blood Partial Pressure O2 78.9, Arterial Blood Total CO2 26.8, Arterial Blood HCO3 25.4, Arterial Blood Base Excess -0.5, Arterial Blood Oxygen Saturation 95.1, Anion Gap 5L, Glomerular Filtration Rate > 60.0, Lactic Acid Level 2.8*H, Calcium Level 8.6L, Total Bilirubin 0.2, Direct Bilirubin 0.1, Aspartate Amino Transf (AST/SGOT) 20, Alanine Aminotransferase (ALT/SGPT) 21, Alkaline Phosphatase 64, Total Creatine Kinase 66, Creatine Kinase MB 1.8, Creatine Kinase MB Relative Index 2.73, Troponin I 0.10, NM-Sfn-T-Type Natriuretic Peptide 698H, Total Protein 6.8, Albumin 2.9L, Albumin/Globulin Ratio 0.7L, Lipase 63L, Thyroid Stimulating Hormone (TSH) 0.880, Free Thyroxine 1.20 01/28/20 13:29: Urine Color YELLOW, Urine Appearance CLEAR, Urine pH 5.0, Urine Specific Palm 1.008, Urine Protein NEGATIVE, Urine Glucose (UA) NEGATIVE, Urine Ketones NEGATIVE, Urine Blood 2+H, Urine Nitrite NEGATIVE, Urine Bilirubin NEGATIVE, Urine Urobilinogen 0.2, Urine Leukocyte Esterase NEGATIVE, Urine WBC (Auto) 3, Urine RBC (Auto) 9H, Urine Hyaline Casts (Auto) 0, Urine Bacteria (Auto) NEGATIVE, Urine Squamous Epithelial Cells 0, Urine Mucus (Auto) SMALL, Urine Sperm (Auto) CBC/BMP Laboratory Tests 01/28/20 11:32 Microbiology Microbiology 01/28/20 Blood Culture, Received Pending 01/28/20 Respiratory Virus Panel (PCR) ([facility]) - Final, Complete 01/28/20 Blood Culture, Received Pending Assessment/Plan 89 year old female with PMH of , PAD, COPD with chronic hypoxic respiratory failure 3L at home, CHF dysphagia, was in her usual state of health till yesterday was at a birthday [employer] playing cards. This morning she was found slumped over the toilet . She was confused could not talk. Complained of SOB. EMS was called. As per EMS she was febrile to 101 and was hypoxic to low 80% she was put on 4 liters of oxygen and brought to ED. In the ED she was confused moaning and groaning. She complained of SOB, could not lay down was orthopneic. She also complained of right shoulder pain could not rate the pain or characterize it. She did tell me she was in [place] however could not tell me when she was there and when she came back. As per son she had esophageal dilatation done 3 1/2 weeks ago as an outpatient procedure in [place]. During the procedure she had an episode of severe gagging as the anaesthesia was light. They came up 1/1/2 weeks ago and she has been doing fine except feeling tired. Last week they went to vascular lab in [place] for arterial and venous study. Patient lives with son and travels with them. During the summer they are mostly up here while in winter they are in [place]. CT chest showed 1. Large areas of consolidation along with scattered alveolar and interstitial infiltrates primarily involving the left hemithorax along with moderate leftpleural effusion, scattered right apical and basilar atelectasis and small right pleural effusion. Findings suggest multifocal pneumonia and require clinical correlation. 2. Cardiomegaly, extensive atherosclerotic disease and evidence for chronic pulmonary vascular congestion. She was admitted for Pneumonia, pleural effusion, sepsis and metabolic encephalopathy and acute on chronic hypoxic respiratory failure. Left sided Pneumonia with possibly parapneumonic effusion/empyema and Sepsis Fever of 101 with EMS, tachycardia, elevated WBC. recent esophageal dilatation procedure in [place] HCAP/ aspiration vanco and zosyn. cultures ordered. gentle hydration due to h/o CHF. Consider tapping of the effusion Acute on chronic respiratory failure with hypoxia due to the above continue oxygen supplementation Acute metabolic encephalopathy due to infection and hypoxia Lactic acidosis possibly due to sepsis and increased work of breathing COPD with possibly exacerbation due to the pneumonia will give duonebs, spiriva, methyl pred. h/O CHF CT chest with chronic pulmonary vascular congestion. legs seems to have resolved chronic edema will give gentle hydration and not sepsis protocol fluids Afib on diltiazem will continue with hold parameters. Aortic stenosis. Peripheral arterial and venous disease with multiple stents and bypasses she's been recommended previously for amputation. 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 Dysphagia with Esophageal dilatation continue PPI and sucralfate. Diabetes lispro sliding scale Dyslipidemia. statin CODE status : discussed with son remains full code. Plan / VTE VTE Prophylaxis Ordered?: Yes WINSOME HOLBROOK MD Jan 28, 2020 15:09
[2020-01-28] MEDS ORDERED: SLF 3 ML SYR IV PRN (16:15)
[2020-01-28] MEDS: IPRATROPIUM 0.5MG/ALBUTEROL 2.5MG INH SOL UD 3ML (DUONEB) NEB SCH ×2 (16:53→20:00)
[2020-01-28] MEDS: SUCRALFATE 1 GM TAB PO SCH ×2 (17:30→21:19)
[2020-01-28] MEDS: CILOSTAZOL 100 MG TAB (PLETAL) PO SCH (17:30)
[2020-01-28] MEDS: CLOPIDOGREL 75 MG TAB PO SCH (17:44)
[2020-01-28] MEDS: HumaLOG INSULIN (NovoLOG) PER UNIT SC SCH (18:40)
[2020-01-28] MEDS: PRAVASTATIN 20 MG TAB PO SCH (18:40)
[2020-01-28] MEDS ORDERED: NS 1,000 ML IV SCH (19:00)
[2020-01-28] MEDS: SYMBICORT 80/4.5MCG INHALER 6GM INH SCH (20:45)
[2020-01-28] MEDS ORDERED: HumaLOG INSULIN (NovoLOG) PER UNIT SC SCH (21:00)
[2020-01-28] MEDS: PIPERACILLIN/TAZOBACTAM SOD 3.375 GM in D5W MINI-BAG PLUS 50 ML IV SCH (21:18)
[2020-01-28] MEDS: PANTOPRAZOLE 40MG VIAL (C9113 PER 1) IV SCH (21:18)
[2020-01-28] MEDS: HEPARIN SOD (PORCINE) 5000UNITS/ML VIAL (J1644 PER 1000UNITS) SQ SCH (21:19)
[2020-01-28] MEDS: SLF 3 ML SYR IV SCH (21:19)
[2020-01-28] MEDS: ASPIRIN 81 MG ENTERIC TAB PO SCH (21:19)
[2020-01-28 22:19] LABS: ABG BASE EXCESS 0.6 (-2.0-2.0); ABG HCO3 25.1 MEQ/L (22.0-26.0); ABG O2 SATURATION 98.8 % (95.0-99.0); ABG PARTIAL PRESSURE CO2 39.8 mmHg (35.0-45.0); ABG PARTIAL PRESSURE O2 136.6 mmHg (75.0-100.0); ABG TOTAL CO2 26.3 MEQ/L (23.0-31.0); ABG pH (ARTERIAL) 7.417 UNITS (7.350-7.450)
[2020-01-28] MEDS ORDERED: ACETAMINOPHEN *IV* 1,000 MG in IV 1 EA IV ONE (22:30)
[2020-01-28] MEDS: methylPREDNISolone INJ 40 MG/1 ML VIAL (J2920) IV SCH (23:56)
[2020-01-28] MEDS: KETOROLAC 30 MG/ML 1ML VIAL IV SCH (23:56)
[2020-01-29] VITALS (21 sets, daily range): BP systolic 112–175; BP diastolic 50–70; O2SAT 80–98
[2020-01-29] MEDS: IPRATROPIUM 0.5MG/ALBUTEROL 2.5MG INH SOL UD 3ML (DUONEB) NEB SCH ×6 (00:06→20:43)
--- NOTE | 2020-01-29 00:44 | ECGEPIP ---
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
[2020-01-29] MEDS: PIPERACILLIN/TAZOBACTAM SOD 3.375 GM in D5W MINI-BAG PLUS 50 ML IV SCH ×4 (03:24→21:17)
[2020-01-29] MEDS: SLF 3 ML SYR IV SCH ×3 (05:08→22:00)
[2020-01-29] MEDS: KETOROLAC 30 MG/ML 1ML VIAL IV SCH ×4 (05:08→23:07)
[2020-01-29 06:21] LABS: BASO % 0.2 % (0.0-1.0); HEMATOCRIT 29.5 % (36.0-47.0); HEMOGLOBIN 9.6 g/dl (12.0-15.5); LYMPH # 0.5 10^3/uL (1.5-5.0); LYMPH % 2.1 % (24.0-44.0); MEAN CORPUSCULAR HEMOGLOBIN 29.4 pg (27.0-33.0); MEAN CORPUSCULAR HGB CONC 32.5 g/dl (32.0-36.5); MEAN CORPUSCULAR VOLUME 90.2 fl (80.0-96.0); MONO # 0.8 10^3/uL (0.0-0.8); MONO % 3.3 % (0.0-5.0); NEUTROPHILS # 24.1 10^3/uL (1.5-8.5); NEUTROPHILS % 93.7 % (36.0-66.0); PLATELET COUNT, AUTOMATED 248 10^3/uL (150-450); RED BLOOD COUNT 3.27 10^6/uL (4.00-5.40); WHITE BLOOD COUNT 25.7 10^3/uL (4.0-10.0)
[2020-01-29 06:44] LABS: CALCIUM LEVEL 7.9 MG/DL (8.8-10.2); CREATININE FOR GFR 1.06 MG/DL (0.55-1.30); GLOMERULAR FILTRATION RATE 52.1 (>32); POTASSIUM SERUM 4.4 MEQ/L (3.5-5.1)
[2020-01-29] MEDS: CILOSTAZOL 100 MG TAB (PLETAL) PO SCH ×2 (07:30→17:08)
[2020-01-29] MEDS: SUCRALFATE 1 GM TAB PO SCH ×3 (07:30→17:08)
[2020-01-29] MEDS: HumaLOG INSULIN (NovoLOG) PER UNIT SC SCH ×3 (07:30→17:39)
[2020-01-29] MEDS: SYMBICORT 80/4.5MCG INHALER 6GM INH SCH (08:27)
[2020-01-29] MEDS: PRAVASTATIN 20 MG TAB PO SCH ×2 (09:00→11:23)
[2020-01-29] MEDS: CLOPIDOGREL 75 MG TAB PO SCH ×2 (09:00→11:23)
[2020-01-29] MEDS: PANTOPRAZOLE 40MG VIAL (C9113 PER 1) IV SCH ×2 (09:52→21:17)
[2020-01-29] MEDS: HEPARIN SOD (PORCINE) 5000UNITS/ML VIAL (J1644 PER 1000UNITS) SQ SCH ×2 (09:52→21:17)
[2020-01-29] MEDS: methylPREDNISolone INJ 40 MG/1 ML VIAL (J2920) IV SCH ×2 (11:23→23:16)
[2020-01-29] MEDS ORDERED: NS 1,000 ML IV ONE (12:00)
[2020-01-29 12:37] LABS: ABG BASE EXCESS -0.5 (-2.0-2.0); ABG HCO3 23.2 MEQ/L (22.0-26.0); ABG PARTIAL PRESSURE CO2 34.2 mmHg (35.0-45.0); ABG PARTIAL PRESSURE O2 85.8 mmHg (75.0-100.0); ABG STANDARD HCO3 24.1 MEQ/L (22.0-26.0); ABG TOTAL CO2 24.2 MEQ/L (23.0-31.0); ABG pH (ARTERIAL) 7.449 UNITS (7.350-7.450)
--- NOTE | 2020-01-29 14:29 | CCN ---
DATE OF SERVICE: 01/29/2020 This is an 89-year-old, elderly female admitted last night on 01/28/2020 for acute hypoxic respiratory failure. Today is hospital day two. On admission, according to EMS, she was confused, had subjective fever of 101, and was hypoxic in the low 80s on 4 liters of oxygen. In the ER, she was confused and moaning and complained of shortness of breath. She has a cough productive of white sputum, but denies hemoptysis. Of note, her son states that she had an esophageal dilatation done three and a half weeks ago as an outpatient procedure in [place]. REVIEW OF SYSTEMS: Unobtainable secondary to patient's dementia PAST MEDICAL HISTORY: Multiple sclerosis. Hearing loss. Hypertension. Atrial fibrillation. Chronic obstructive pulmonary disease. Peripheral artery disease. PDD. Hypercholesterolemia. Hyperlipidemia PAST SURGICAL HISTORY: None pertinent to pulmonary system PAST SOCIAL HISTORY: Former smoker PAST FAMILY HISTORY: Unobtainable 2/2 to dementia ALLERGIES: Codeine, sulfa and erythromycin based meds VITAL SIGNS: Pulse 92. Respirations 20. Blood pressure 112/56. Pulse oximetry 97% on 5 liters oxygen. INS AND OUTS: Net negative of 540 over the past 24 hours. About 175 mL since 6:00 a.m. this morning of output. LABORATORY DATA: White count 25.7, hemoglobin and hematocrit 9.6 and 29.5, platelet 248. Sodium 141, potassium 4.4, chloride 106, bicarbonate 25, BUN and creatinine 29 and 1.06, blood glucose 190. Lactic acid 3.2. Calcium 7.9. ABG: PH 7.35 PCO2 46.9 HCO3- 25.4 PO2 78.9 on admission IMAGING: EKG: Sinus tachycardia with occasional supraventricular ST-T wave abnormality. CXR: LLL opacities and consolidation consistent with acute pnemonia and possible effusion CT chest w/o ctx: 1.) cardiomegaly , pulm vascular congestion 2.) large area of consolidation infiltrate in l hemithroax along with small L apical pleural effusion PHYSICAL EXAMINATION: General: Elderly female, AAOx2, using accessory muscles to breathe currently on NC satting 97% HEENT: pupils reactive to light and symmetric bilaterally, mucus membranes moist, tongue midline, no thyromegaly LYMPH: no cervical, supraclavicular, or axillary adenopathy Cardiologic: Sinus rhythm, normal S1, S2, no murmurs gallops, rubs, PMI non displaced, no JVP, no signs of edema Pulmonary: Rales L> R, diminished breath sounds on the Left side; wheezing throughout, no crackles, or rhonchi heard. Accessory muscle use. No retrosternal retractions, no dullness to percussion Neurologic: AAOX2, sensation intact throughout, confused state likely 2/2 to dementia, reflexes intact 2+ throughout, no myoclonus on dorsiflexion of feet Abdomen: no hepatosplenomegaly, hernia or mass, normal bowel sounds, soft nontender and nondistended, no bruits auscultated over abdomen Skin: leg ulcers L>R 2/2 to venous insufficiency, no decubitus ulcers, tinea corporis on L abdomen MSK/extremities: No cyanosis, clubbing, normal muscle tone, no evidence of joint effusions or fractures, good range of motion in upper and lower extremities bilaterally ASSESSMENT AND PLAN: 1. Hospital Acquired Pneumonia- Currently on vancomycin and Zosyn. Will continue current regimen and trend white count. 2. Pleural effusion- Bedside ultrasound was performed, not enough fluid for a thoracentesis. 3. Severe hypoxia- The patient is at high risk for resuscitation despite poor prognosis. Family wants everything done. Continue NC 5L to maintain O2 sat > 92%. Will order a repeat ABG. Pt is NPO until she shows improvement in condition. Speech eval will repeat swallow test upon clinical improvement 4. Sepsis- blood cx pending, Lactic acid 3.4. Adding fluid bolus 1 L NS with strict monitoring of her I&Os q1h. Will bolus again if output is less than 25cc/h. If patient does not respond to fluids, will consider pressors. Will continue to monitor and supplemental with fluid boluses as needed. 5. Poor mucociliary clearance. Ordered VATS and pulmonary physical therapy (PT) 6.) Gross Hematuria- more gross red blood seen in spring bag today which may be 2/2 to urethral trauma from spring insertion. Will continue to monitor and workup if condition does not improve and once patient's clinical symptoms start to improve 7.) Continue DVT ppx with heparin 5000unit qd 8.) Continue GI ppx with protonix ADDENDUM BY DR. FELIZ GONZALES: This is an addendum to the critical care note already dictated by my resident. Critical care time was 1 hour and 7 minutes, this excludes all procedures. Chastity is an 89-year-old female that came in last evening with shortness of breath, confusion, fever, productive sputum and evidence of significant pneumonia with a very small pleural effusion. I reviewed pleural effusion with the thoracic surgeon who agrees with me that it is very small. I did ultrasound the patient at bedside and there was not enough fluid there to tap; however, will continue to monitor. In the meantime, she is on broad-spectrum antibiotics. However, she does have an elevated lactic acid and she has not received significantly enough fluid in my opinion and therefore I have given her another liter of normal saline. Will closely monitor her urine output. Will obtain a new arterial blood gas to ensure no further respiratory failure. She is quite tachypneic, very short of breath and hypoxic on 4-5 liters of oxygen. I have ordered aggressive chest physical therapy (PT) along with other therapies to encourage mucociliary clearance. She is at high risk for requiring intubation; therefore, I have kept her nothing by mouth (n.p.o.) until she shows signs of clinical recovery where it is safe for her to eat. ERMELINDAD
[2020-01-29] MEDS: VANCOMYCIN HCL 1,000 MG, VIAL MATE ADAPTER 1 EACH in D5W 250 ML IV SCH (15:18)
[2020-01-29] MEDS ORDERED: GLUCAGON INJ 1MG VIAL SC PRN (17:15)
[2020-01-29] MEDS ORDERED: GLUCOSE 4GM CHEW TABLET PO PRN (17:15)
[2020-01-29] MEDS ORDERED: DEXTROSE 50% 50 ML SYRINGE IV PRN (17:15)
--- NOTE | 2020-01-29 18:24 | IPNPDOC ---
Subjective Date Seen The patient was seen on 01/29/20. Subjective Chief Complaint/HPI The patient was actually awake and alert. She is pleasantly confused, she did not know where she was or how she got here. She indicates that she is still significantly short of breath, but otherwise really does not answer any other questions, therefore review of systems could not be obtained. Objective Physical Examination General Exam: Positive: Moderate Distress, Other (confused, moaning and gr oaning.) Eye Exam: Positive: Conjunctiva & lids normal, EOMI; Negative: Sclera icteric ENT Exam: Positive: Atraumatic, Mucous membr. moist/pink Neck Exam: Positive: Supple; Negative: JVD, thyromegaly Chest Exam: Positive: Rales (left > right ), Diminished (on the left), Other (use of acessory muscles present) Heart Exam: Positive: Tachycardic, Regular Rhythm, Normal S1, Normal S2, Mu rmurs (systolic murmur) Abdomen Exam: Positive: Normal bowel sounds, Soft, Other (nontender, no guarding or rigidity) Extremity Exam: Positive: Edema, Other (Chronic venous statis changes, ) Skin Exam: Positive: Other skin issue (ulcers on the right leg) Assessment /Plan Problems (1) Acute respiratory failure with hypoxia Status: Acute (2) Pneumonia Status: Acute (3) Parapneumonic effusion Status: Acute (4) Sepsis Status: Acute (5) Lactic acid acidosis Status: Acute (6) Metabolic encephalopathy Status: Acute (7) CHF (congestive heart failure) Status: Chronic (8) Atrial fibrillation Status: Chronic (9) Aortic stenosis Status: Chronic (10) Peripheral arterial disease Status: Chronic (11) Arterial leg ulcer Status: Chronic (12) Venous stasis Status: Chronic (13) Dysphagia Status: Chronic (14) Diabetes Status: Chronic (15) Dyslipidemia Status: Chronic (16) COPD (chronic obstructive pulmonary disease) Status: Chronic Plan/VTE VTE Prophylaxis Ordered?: Yes (heparin) Plan Patient's condition remains quite guarded. She continues to require 15 L via venturing mass to maintain oxygen saturations. Her pleural effusion on the chest CT in the setting of significant pneumonia was concerning for a parapneumonic effusion. Consultation was placed to pulmonary service for further evaluation regarding possible thoracentesis, and their input regarding her significant acute respiratory failure with hypoxia is greatly appreciated. Plan is to continue with empiric antibiotics vancomycin and Zosyn, as well as st eroids. The fluids are being increased since she clearly is in sepsis with lactic acidosis. Aggressive chest PT has been ordered. She does remain at high risk for requiring intubation, she remains full code. VS, I&O, 24H, Fishbone Vital Signs/I&O Vital Signs Date Time Temp Pulse Resp B/P (MAP) Pulse Ox O2 Delivery O2 Flow Rate FiO2 01/29/20 16:00 97.3 100 16 118/68 (85) 96 Venturi Mask 15.0 50 I&O- Last 24 Hours up to 6 AM 01/29/20 06:00 Intake Total 660 ml Output Total 1500 ml Balance -840 ml Laboratory Data 24H LABS Laboratory Tests 2 01/28/20 21:29: Bedside Glucose (Misc Panel) 190H 01/28/20 22:06: Blood Gas Bicarbonate Standard 25.0, Arterial Blood pH 7.417, Arterial Blood Partial Pressure CO2 39.8, Arterial Blood Partial Pressure O2 136.6H, Arterial Blood Total CO2 26.3, Arterial Blood HCO3 25.1, Arterial Blood Base Excess 0.6, Arterial Blood Oxygen Saturation 98.8 01/29/20 06:07: Immature Granulocyte % (Auto) 0.7, Neutrophils (%) (Auto) 93.7H, Lymphocytes (%) (Auto) 2.1L, Monocytes (%) (Auto) 3.3, Eosinophils (%) (Auto) 0.0, Basophils (%) (Auto) 0.2, Neutrophils # (Auto) 24.1H, Lymphocytes # (Auto) 0.5L, Monocytes # (Auto) 0.8, Eosinophils # (Auto) 0.0, Basophils # (Auto) 0.0, Nucleated Red Blood Cells % (auto) 0.0, Anion Gap 10, Glomerular Filtration Rate 52.1, Lactic Acid Level 3.2*H, Calcium Level 7.9L 01/29/20 10:22: Lactic Acid Followup at 4 Hours 3.1*H 01/29/20 11:34: Bedside Glucose (Misc Panel) 188H 01/29/20 12:25: Blood Gas Bicarbonate Standard 24.1, Arterial Blood pH 7.449, Arterial Blood Partial Pressure CO2 34.2L, Arterial Blood Partial Pressure O2 85.8, Arterial Blood Total CO2 24.2, Arterial Blood HCO3 23.2, Arterial Blood Base Excess -0.5, Arterial Blood Oxygen Saturation 97.0 01/29/20 17:30: Bedside Glucose (Misc Panel) 174H CBC/BMP Laboratory Tests 01/29/20 06:07 Microbiology Microbiology 01/29/20 Gram Stain - Final, Resulted 01/29/20 Sputum Culture, Resulted Pending 01/28/20 Blood Culture - Preliminary, Resulted No growth after 24 hours . All specim... 01/28/20 Respiratory Virus Panel (PCR) ([facility]) - Final, Complete 01/28/20 Blood Culture - Preliminary, Resulted No growth after 24 hours . All specim... ADRIENNE MARSHALL DO Jan 29, 2020 18:24
[2020-01-29 20:43] LABS: ABG BASE EXCESS -1.1 (-2.0-2.0); ABG HCO3 23.7 MEQ/L (22.0-26.0); ABG O2 SATURATION 96.8 % (95.0-99.0); ABG PARTIAL PRESSURE CO2 39.7 mmHg (35.0-45.0); ABG PARTIAL PRESSURE O2 87.8 mmHg (75.0-100.0); ABG STANDARD HCO3 23.5 MEQ/L (22.0-26.0); ABG TOTAL CO2 24.9 MEQ/L (23.0-31.0); ABG pH (ARTERIAL) 7.393 UNITS (7.350-7.450)
[2020-01-29] MEDS ORDERED: LIDOCAINE 2% 5ML JELLY UROJET TOP PRN (20:45)
[2020-01-29] MEDS ORDERED: methylPREDNISolone INJ 40 MG/1 ML VIAL (J2920) IV ONE (21:15)
[2020-01-29] MEDS ORDERED: diphenhydrAMINE 25MG CAP PO ONE (21:45)
[2020-01-29] MEDS ORDERED: FUROSEMIDE 20MG/2ML VIAL (J1940) IV ONE (21:45)
[2020-01-29] MEDS: ASPIRIN 81 MG ENTERIC TAB PO SCH (21:53)
[2020-01-29] MEDS: PHENAZOPYRIDINE 100 MG TAB PO SCH (23:01)
[2020-01-29] MEDS: FORMOTEROL FUMARATE 20 MCG/2 ML INHALATION SOLUTION (PERFOROMIST) INH SCH (23:07)
[2020-01-29] MEDS: BUDESONIDE 0.5 MG/2 ML INHALATION SUSPENSION INH SCH (23:07)
[2020-01-30] VITALS (31 sets, daily range): BP systolic 87–180; BP diastolic 48–110; O2SAT 88–97
[2020-01-30] MEDS ORDERED: RAMELTEON 8 MG TAB (ROZEREM) PO ONE (00:03)
[2020-01-30] MEDS: IPRATROPIUM 0.5MG/ALBUTEROL 2.5MG INH SOL UD 3ML (DUONEB) NEB SCH ×6 (00:13→19:52)
[2020-01-30] MEDS: HumaLOG INSULIN (NovoLOG) PER UNIT SC SCH ×4 (00:28→18:26)
[2020-01-30] MEDS ORDERED: KETOROLAC 30 MG/ML 1ML VIAL IV ONE (02:45)
[2020-01-30] MEDS: PIPERACILLIN/TAZOBACTAM SOD 3.375 GM in D5W MINI-BAG PLUS 50 ML IV SCH ×4 (03:19→20:25)
[2020-01-30 03:39] LABS: BASO % 0.1 % (0.0-1.0); HEMATOCRIT 31.9 % (36.0-47.0); HEMOGLOBIN 10.2 g/dl (12.0-15.5); LYMPH # 0.3 10^3/uL (1.5-5.0); MEAN CORPUSCULAR HEMOGLOBIN 29.1 pg (27.0-33.0); MEAN CORPUSCULAR VOLUME 90.9 fl (80.0-96.0); MONO # 1.4 10^3/uL (0.0-0.8); MONO % 4.9 % (0.0-5.0); NEUTROPHILS # 25.9 10^3/uL (1.5-8.5); NEUTROPHILS % 92.4 % (36.0-66.0); PLATELET COUNT, AUTOMATED 288 10^3/uL (150-450); RED BLOOD COUNT 3.51 10^6/uL (4.00-5.40); WHITE BLOOD COUNT 28.1 10^3/uL (4.0-10.0)
[2020-01-30 04:03] LABS: PERCENT SATURATION 4.4 % (13.2-45.0)
[2020-01-30 04:11] LABS: CALCIUM LEVEL 8.2 MG/DL (8.8-10.2); CREATININE FOR GFR 1.27 MG/DL (0.55-1.30); GLOMERULAR FILTRATION RATE 42.3 (>32); TROPONIN I 0.39 NG/ML (< 0.10)
[2020-01-30] MEDS: KETOROLAC 30 MG/ML 1ML VIAL IV SCH (05:01)
[2020-01-30 05:23] LABS: APPEARANCE, URINE MANUAL TURBID (CLEAR)
[2020-01-30 05:24] LABS: COLOR, URINE MANUAL RED (YELLOW); PH,URINE MAN OBSCURED UNITS (5.0 - 7.0)
[2020-01-30 05:25] LABS: BILIRUBIN, URINE MANUAL OBSCURED (NEGATIVE); GLUCOSE, URINE (UA) MANUAL OBSCURED mg/dL (NEGATIVE); KETONE, URINE MANUAL OBSCURED mg/dL (NEGATIVE); NITRITE, URINE MANUAL OBSCURED (NEGATIVE); PROTEIN, URINE MANUAL OBSCURED mg/dL (NEGATIVE); UROBILINOGEN, URINE MANUAL OBSCURED mg/dl (NORMAL)
[2020-01-30 05:26] LABS: BLOOD URINE MANUAL POSITIVE (NEGATIVE); LEUKOCYTE ESTERASE, URINE MAN OBSCURED (NEGATIVE)
[2020-01-30 05:34] LABS: RBC, URINE TNTC /hpf (0-3); WBC, URINE 15-20 /hpf (0-3)
[2020-01-30 05:35] LABS: RENAL EPITHELIAL CELLS, URINE SMALL AMOUNT /hpf; SQUAMOUS EPITHELIAL CELL URINE SMALL AMOUNT /hpf (SMALL AMT); TRANSITIONAL EPI CELLS, URINE SMALL AMOUNT /hpf
[2020-01-30 05:40] LABS: BACTERIA, URINE SMALL AMOUNT; HYALINE CAST, URINE NONE SEEN /lpf (0-1); MUCUS, URINE SMALL AMOUNT (NEGATIVE)
[2020-01-30] MEDS: SLF 3 ML SYR IV SCH ×3 (06:46→22:00)
--- NOTE | 2020-01-30 07:28 | REP ---
Clinical: Shortness of breath. Comparison: 01/28/2020. Findings: Bilateral reticulonodular and alveolar opacities along with left lower lobe consolidations are essentially unchanged from prior examination. Small layering effusions cannot be excluded. No pneumothorax. Impression: Continued multifocal infiltrate/pneumonia essentially unchanged. Electronically Signed by Jose Eduardo Olivera MD 01/30/2020 07:19 A
[2020-01-30] MEDS: BUDESONIDE 0.5 MG/2 ML INHALATION SUSPENSION INH SCH ×2 (07:34→19:52)
[2020-01-30] MEDS: FORMOTEROL FUMARATE 20 MCG/2 ML INHALATION SOLUTION (PERFOROMIST) INH SCH ×2 (07:34→19:52)
[2020-01-30] MEDS: CLOPIDOGREL 75 MG TAB PO SCH (07:54)
[2020-01-30] MEDS: HEPARIN SOD (PORCINE) 5000UNITS/ML VIAL (J1644 PER 1000UNITS) SQ SCH ×2 (07:54→20:24)
[2020-01-30] MEDS: CILOSTAZOL 100 MG TAB (PLETAL) PO SCH ×2 (07:54→18:26)
[2020-01-30] MEDS: PANTOPRAZOLE 40MG VIAL (C9113 PER 1) IV SCH ×2 (07:54→20:24)
[2020-01-30] MEDS: PHENAZOPYRIDINE 100 MG TAB PO SCH ×3 (07:54→20:23)
[2020-01-30 08:55] LABS: ABG BASE EXCESS -2.2 (-2.0-2.0); ABG HCO3 22.2 MEQ/L (22.0-26.0); ABG O2 SATURATION 98.6 % (95.0-99.0); ABG PARTIAL PRESSURE CO2 36.7 mmHg (35.0-45.0); ABG PARTIAL PRESSURE O2 129.5 mmHg (75.0-100.0); ABG STANDARD HCO3 22.7 MEQ/L (22.0-26.0); ABG TOTAL CO2 23.3 MEQ/L (23.0-31.0)
--- NOTE | 2020-01-30 09:40 | REP ---
Clinical: Shortness of breath. Comparison: 01/29/2020, 01/28/2020. Findings: Diffuse bilateral infiltrates (left greater than right) and suspected moderate left pleural effusion along with possible small right pleural effusion again identified and essentially unchanged from prior examination. No pneumothorax. Skeletal structures stable. The mediastinum is obscured by overlying opacities. Impression: Diffuse bilateral infiltrates/opacities (left greater than right) essentially unchanged. Electronically Signed by Jose Eduardo Olivera MD 01/30/2020 09:31 A
[2020-01-30] MEDS ORDERED: ETOMIDATE INJ 20MG/10ML VIAL As Ordered ONE (10:44)
[2020-01-30] MEDS ORDERED: SUCCINYLCHOLINE INJ 200 MG/10 ML VIAL (J0330) As Ordered ONE (10:45)
[2020-01-30] MEDS ORDERED: MIDAZOLAM INJ 2MG/2ML VIAL (J2250 PER 1MG) As Ordered ONE ×3 (10:58→11:05)
[2020-01-30] MEDS ORDERED: NS 1,000 ML IV ONE (11:00)
[2020-01-30] MEDS ORDERED: MIDAZOLAM INJ 2MG/2ML VIAL (J2250 PER 1MG) IV STA ×2 (11:02→11:08)
[2020-01-30] MEDS ORDERED: REFRIGERATOR IV KEYS XX PRN (11:15)
--- NOTE | 2020-01-30 11:15 | ECGEPIP ---
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
--- NOTE | 2020-01-30 11:16 | CCN ---
DATE: 01/30/2020 CRITICAL CARE TIME: Was 1 hour 32 minutes. Chastity is a very pleasant 89-year-old female who has had progressive severe hypoxia. She was switched to Vapotherm this morning but continues to have severe respiratory distress, retracting, and complaining constantly of not being able to breathe. She appears as if she is failing as she is more tachypneic. She is more tachycardiac, now with heart rates up into 120s and probable atrial fibrillation. EKG is pending. I have moved her to the intensive care unit in anticipation for probable intubation, mechanical ventilation. I had a discussion with the patient; however, she is really not sure as far as her directives what she wants, whether or not she wants ventilation or not. At this point in time, she has rejected the thought of palliative care. She states she does not know and wishes that we talk to her son. Temperature is 96.6. Pulse is ranging from 56 from early this morning up to 120 now. Respiratory rate is up to 26. Blood pressure is 120/68. Mean arterial pressure is 85. Oxygen saturation is 96% on 35 liters, FiO2 of 0.70. Adjusted her to 40 liters with an FiO2 of 0.6 with equivalent oxygen saturation. General: Patient is retracting sitting up, saying she cannot breathe, visibly severely dyspneic, tachycardiac. HEENT: Sclerae clear and anicteric. Pupils equal, reactive to light. Mucous membranes slightly dry. Tongue is midline. Neck: Is supple. No tracheal deviation or mass. Lymphatics: No cervical, supraclavicular, or axillary adenopathy. Cardiac: Tachycardiac. S1, S2, regularly irregular. Peripheral pulses are decreased. The left lower extremity now has pitting edema. She has a Kellogg in place showing dark urine. Pulmonary: Decreased breath sounds throughout. Few rales bilaterally. No rhonchi. Visible retractions. Tachypneic with shallow breathing. Using abdominal muscles. Abdomen: Is soft, nontender, and nondistended. No hepatosplenomegaly. No masses or hernia. Extremities: Chronic venous stasis changes. Chronic changes from peripheral vascular disease. Left lower extremity edema, as mentioned above. Skin: Multiple skin tears of varying stages. No evidence of cellulitis. Peripheral vascular changes, as mentioned above. Neurologic: No unilateral weakness, asterixis. Patient does appear quite anxious. White blood cell count is 28.1, which is increased. Hemoglobin is 10.2, platelet count is 288. Sodium is 139, potassium is 4.0, chloride is 106, bicarbonate of 23, BUN of 42. Creatinine is now up to 1.27. Glucose is 142, calcium is 8.2. Troponin is now elevated. Chest x-ray shows continued left lower lobe infiltrate, although potentially some improvement in the infiltrate. I do not see evidence of upper lobe trapped effusion. Sputum culture is pending. One blood culture is pending. One blood culture is resulted negative. Respiratory panel is negative for COVID and other viruses. PROBLEMS: 1. Severe hypoxia, severe retracting. I have arranged transfer to the intensive care unit (ICU). Patient will be on Vapotherm. Currently discussing whether or not patient would want to be on mechanical ventilation temporarily. Also re-addressing cardiopulmonary resuscitation (CPR) status. Son is being called by Dr. Mata. 2. Severe pneumonia. We are checking lactic acid. No evidence of hypotension as of yet. 3. Renal failure. Will discontinue ketorolac. Patient having hematuria. Will continue to monitor. If patient continues to have hematuria, may need outpatient workup if she survives this hospitalization. 4. Hyperglycemia, mild in nature. No indication for more aggressive therapy at this point in time as blood sugar remains less than 180. 5. Coronary artery disease with troponin leak likely due to severity of dyspnea, possibly secondary sepsis. Overall poor prognosis. 6. Leukocytosis, worsening. 7. Lactic acidosis. Has not resolved. Could be from work of breathing versus poor perfusion from sepsis. 8. Renal failure, worsening. I have discontinued ketorolac. May need more fluids; however, her respiratory status might not tolerate this unless she has been intubated. Dr. Mata is currently speaking with the son as I am managing the patient at bedside. We are talking.
--- NOTE | 2020-01-30 11:26 | ECGEPIP ---
[facility] Test Date: 2020-01-30 Pat Name: CHICO JONES Department: Room: [place] [address] Gender: Female Financial Planning Advisor: JACQUI : 1930 Requested By: FELIZ Barnard Order Number: [id number] Reading MD: Waylon Payan Measurements Intervals [place] Rate: 122 P: PA: 0 QRS: 23 QRSD: 88 T: 44 QT: 295 QTc: 421 Interpretive Statements SINUS TACHYCARDIA WITH PREMATURE SUPRAVENTRICULAR BEATS NO MANIFESTATIONS OF PRIOR INFERIOR AND/OR SEPTAL INFARCTS ST/T ABNORMALITIES ARE NO LONGER PRESENT ABNORMAL RHYTHM ECG MOST RECENT TRACING ON 01/30/20 AT 3:06 Electronically Signed on 01-30-2020 11:26:20 EDT by Waylon Payan
[2020-01-30] MEDS: MIDAZOLAM INJ 2MG/2ML VIAL (J2250 PER 1MG) IV PRN ×2 (11:27→12:08)
--- NOTE | 2020-01-30 11:39 | REP ---
Clinical: Intubation. Line placement. Comparison: 01/30/2020 at 08:01 a.m. Findings: Right IJ line with tip in the SVC. Endotracheal tube approximately 2 cm above the peggy. Nasogastric tube courses below left hemidiaphragm. Diffuse chronic interstitial changes with superimposed infiltrates/consolidations are again noted, but may be slightly improved as compared to prior examination. Impression: 1. Lines and tubes as above. 2. Continued evidence for multifocal infiltrates with suggestions for mild improvement. Electronically Signed by Jose Eduardo Olivera MD 01/30/2020 11:31 A
[2020-01-30] MEDS ORDERED: ETOMIDATE INJ 20MG/10ML VIAL IV STA (11:41)
[2020-01-30] MEDS ORDERED: SUCCINYLCHOLINE INJ 200 MG/10 ML VIAL (J0330) IV STA (11:41)
[2020-01-30] MEDS: MIDAZOLAM HCL 100 MG in D5W 80 ML IV SCH ×2 (12:06→23:50)
[2020-01-30] MEDS: methylPREDNISolone INJ 40 MG/1 ML VIAL (J2920) IV SCH (12:30)
[2020-01-30] MEDS: CHLORHEXIDINE GLUCONATE 0.12 % 15ML UDC (PERIDEX ORAL RINSE) MT SCH ×2 (12:30→20:23)
--- NOTE | 2020-01-30 12:33 | RO ---
DATE OF PROCEDURE: 01/30/2020 PREPROCEDURE DIAGNOSIS: Hypoxemia. POSTPROCEDURE DIAGNOSIS: Hypoxemia. PROCEDURE: Endotracheal intubation. SURGEON: Dr. Kirkland PROCESS CONTROLLER: No assistants. ANESTHESIA: 20 of etomidate and 100 mg of succinylcholine given in rapid sequence fashion. CONSENT: Patient had advance directives indicating all measures were requested to be pursued, including all forms of critical care, cardiopulmonary resuscitation (CPR), mechanical ventilation. Attempts to discuss this with the patient prior to her intubation were difficult as patient stated she did not know, she was an extremist. Son was called and he stated that, even with multiple conversations, he understood her wishes to be that she wanted everything possibly done despite her multiple comorbidities. DESCRIPTION OF PROCEDURE: Patient was placed in the supine position, preoxygenated. Oxygen saturation was never below 90%. After being placed in the sniffing position, rapid sequence intubation was performed with the use of 20 etomidate followed directly by 100 mg of succinylcholine. A 3 blade with GlideScope was used to view the posterior pharynx. There was a grade 2 view. 8.0 endotracheal tube was placed. This was secured at 22 at the lip. There were no observed complications. Placement was confirmed via end-tidal CO2 and auscultation along with chest x-ray. Patient's oxygen saturations improved after intubation to 97%. [facility]
--- NOTE | 2020-01-30 12:40 | RO ---
DATE OF PROCEDURE: 01/30/2020 PREPROCEDURE DIAGNOSIS: Hypotension. POSTPROCEDURE DIAGNOSIS: Hypotension. PROCEDURE: Right central line internal jugular triple-lumen catheter placement. SURGEON: Dr. Kirkland AUTO TRANSMISSION SPECIALIST: No assistants. Anesthesia: versed - on mechanical ventilation. CONSENT: No consent obtained as procedure was deemed urgent. DESCRIPTION OF PROCEDURE: Time-out was performed, identifying two patient identifiers, correct site, correct procedure. Right internal jugular (IJ) was prepped and draped in a sterile manner with chlorhexidine. Full sterile barrier precautions. RaCoDa Therapeuticsson syringe was then introduced under ultrasound into the right IJ on the first pass with return of venous blood flow. Wire was fed through the needle, and needle was removed. Joaquin in the skin was made, and dilator was advanced. After dilator was advanced, dilator was removed. Triple-lumen catheter was then placed via modified Seldinger technique. Wire was removed. Triple-lumen catheter was then sutured in at 15 cm. All three ports returned venous blood flow and flushed easily. Postprocedure chest x-ray shows no evidence of complication with the tip of the catheter in the superior vena cava (SVC). MTDD
[2020-01-30] MEDS: MORPHINE 2 MG/ML 1ML VIAL (J2270) IV PRN (12:41)
[2020-01-30] MEDS: VANCOMYCIN HCL 1,000 MG, VIAL MATE ADAPTER 1 EACH in D5W 250 ML IV SCH (14:45)
--- NOTE | 2020-01-30 18:18 | IPNPDOC ---
Subjective Date Seen The patient was seen on 01/30/20. Subjective Chief Complaint/HPI Upon evaluation of the patient this morning, it was clear that she had had a decline during the night. She is significantly tachypneic, and looked exhausted. In addition to this she had an EKG that showed inverted T waves and an elevated troponin. Venturing mask was switched for Vapotherm, however over the next few hours she continued to decline. She was moved into the ICU, and her family was called and informed of her declining status. Shortly thereafter she became significantly more tachycardic, tachypnea, and then hypotensive. The decision was made by the critical care team to put her on a ventilator, and a central line was placed. Family was updated every step of the way. Objective Physical Examination General Exam: Positive: Severe Distress Chest Exam: Positive: Rales (throughout), Other (use of acessory muscles present); Negative: Rhonchi Heart Exam: Positive: Tachycardic, Irregular Rhythm, Normal S1, Normal S2, Murmurs (systolic murmur 4/6) Extremity Exam: Positive: Edema (left leg more than right), Other (Chronic venous statis changes) Skin Exam: Positive: Other skin issue (ulcers on the right leg) Assessment /Plan Problems (1) Acute respiratory failure with hypoxia Status: Acute (2) Pneumonia Status: Acute (3) Parapneumonic effusion Status: Acute (4) Sepsis Status: Acute (5) Lactic acid acidosis Status: Acute (6) Metabolic encephalopathy Status: Acute (7) CHF (congestive heart failure) Status: Chronic (8) Atrial fibrillation Status: Chronic (9) Aortic stenosis Status: Chronic (10) Peripheral arterial disease Status: Chronic (11) Arterial leg ulcer Status: Chronic (12) Venous stasis Status: Chronic (13) Dysphagia Status: Chronic (14) Diabetes Status: Chronic (15) Dyslipidemia Status: Chronic (16) COPD (chronic obstructive pulmonary disease) Status: Chronic Plan/VTE VTE Prophylaxis Ordered?: Yes (heparin) Plan The patient, just prior to being intubated, voiced her opinion that she would like to have everything done. Her family does confirm that this has always been her wishes. Patient's condition is critical. Prognosis is very poor. We had a long talk with her son Vamsi, he understands the situation well. We will transition her care to the Critical Care team. Hospitalist will sign off at this time. VS, I&O, 24H, [facility] Vital Signs/I&O Vital Signs Date Time Temp Pulse Resp B/P (MAP) Pulse Ox O2 Delivery O2 Flow Rate FiO2 01/30/20 16:00 97.8 104 24 146/58 (87) 95 Ventilator 45 01/30/20 08:45 35.0 I&O- Last 24 Hours up to 6 AM 01/30/20 06:00 Intake Total 1320 ml Output Total 675 ml Balance 645 ml Laboratory Data 24H LABS Laboratory Tests 2 01/29/20 19:26: Bedside Glucose (Misc Panel) 158H 01/29/20 20:37: Blood Gas Bicarbonate Standard 23.5, Arterial Blood pH 7.393, Arterial Blood Partial Pressure CO2 39.7, Arterial Blood Partial Pressure O2 87.8, Arterial Blood Total CO2 24.9, Arterial Blood HCO3 23.7, Arterial Blood Base Excess -1.1, Arterial Blood Oxygen Saturation 96.8 01/30/20 00:03: Bedside Glucose (Misc Panel) 168H 01/30/20 03:19: Immature Granulocyte % (Auto) 1.6, Neutrophils (%) (Auto) 92.4H, Lymphocytes (%) (Auto) 1.0L, Monocytes (%) (Auto) 4.9, Eosinophils (%) (Auto) 0.0, Basophils (%) (Auto) 0.1, Neutrophils # (Auto) 25.9H, Lymphocytes # (Auto) 0.3L, Monocytes # (Auto) 1.4H, Eosinophils # (Auto) 0.0, Basophils # (Auto) 0.0, Nucleated Red Blood Cells % (auto) 0.0, Anion Gap 10, Glomerular Filtration Rate 42.3, Calcium Level 8.2L, Iron Level 11L, Total Iron Binding Capacity 250, Transferrin % Saturation 4.4L, Ferritin 170, Troponin I 0.39#H 01/30/20 05:01: Lactic Acid Level 3.0*H 01/30/20 05:14: Bedside Urine Color (LAB) REDH, Bedside Urine Appearance (LAB) TURBIDH, Bedside Urine pH (LAB) OBSCUREDH, Bedside Urine Specific [place] (LAB 1.020, Bedside Urine Protein (LAB) OBSCUREDH, Bedside Urine Glucose (UA) OBSCUREDH, Bedside Urine Ketones (LAB) OBSCUREDH, Bedside Urine Blood POSITIVEH, Bedside Urine Nitrite (LAB) OBSCUREDH, Bedside Urine Bilirubin (LAB) OBSCUREDH, Bedside Urine Urobilinogen (LAB) OBSCUREDH, Bedside Urine Leukocyte Esterase (L OBSCUREDH, Urine Sediment Examination PERFORMED, Urine RBC TNTCH, Urine WBC 15-20H, Urine Squamous Epithelial Cells SMALL AMOUNT, Urine Transitional Epithelial Cells SMALL AMOUNTH, Urine Renal Epithelial Cells SMALL AMOUNTH, Urine Bacteria SMALL AMOUNTH, Urine Hyaline Casts NONE SEEN, Urine Mucus SMALL AMOUNTH 01/30/20 06:29: Bedside Glucose (Misc Panel) 172H 01/30/20 08:45: Blood Gas Bicarbonate Standard 22.7, Arterial Blood pH 7.400, Arterial Blood Partial Pressure CO2 36.7, Arterial Blood Partial Pressure O2 129.5H, Arterial Blood Total CO2 23.3, Arterial Blood HCO3 22.2, Arterial Blood Base Excess - 2.2L, Arterial Blood Oxygen Saturation 98.6 01/30/20 09:04: Troponin I 0.57#H 01/30/20 09:22: Lactic Acid Followup at 4 Hours 1.7 01/30/20 12:13: Central Line Venous O2 Saturation 96.0, Vancomycin Level Trough 11.1 01/30/20 12:22: Bedside Glucose (Misc Panel) 129H 01/30/20 15:47: Troponin I 0.75#H CBC/BMP Laboratory Tests 01/30/20 03:19 Microbiology Microbiology 01/30/20 Gram Stain, Received Pending 01/30/20 Sputum Culture, Received Pending 01/29/20 Gram Stain - Final, Resulted 01/29/20 Sputum Culture, Resulted Pending 01/28/20 Blood Culture - Preliminary, Resulted No Growth after 48 hours. All Specime... 01/28/20 Respiratory Virus Panel (PCR) ([facility]) - Final, Complete 01/28/20 Blood Culture - Preliminary, Resulted No Growth after 48 hours. All Specime... ADRIENNE MARSHALL DO Jan 30, 2020 18:18
[2020-01-30] MEDS: ASPIRIN 81 MG ENTERIC TAB PO SCH (20:23)
[2020-01-30] MEDS: propofoL 1,000 MG in IV 1 EA IV SCH (22:31)
[2020-01-31] VITALS (26 sets, daily range): BP systolic 100–170; BP diastolic 53–87
[2020-01-31] MEDS: IPRATROPIUM 0.5MG/ALBUTEROL 2.5MG INH SOL UD 3ML (DUONEB) NEB SCH ×7 (00:09→23:14)
[2020-01-31] MEDS: methylPREDNISolone INJ 40 MG/1 ML VIAL (J2920) IV SCH ×3 (00:27→23:27)
[2020-01-31] MEDS: HumaLOG INSULIN (NovoLOG) PER UNIT SC SCH ×5 (00:27→23:27)
[2020-01-31] MEDS: PIPERACILLIN/TAZOBACTAM SOD 3.375 GM in D5W MINI-BAG PLUS 50 ML IV SCH (03:31)
[2020-01-31 05:27] LABS: BASO % 0.2 % (0.0-1.0); HEMATOCRIT 26.4 % (36.0-47.0); HEMOGLOBIN 8.6 g/dl (12.0-15.5); LYMPH # 0.3 10^3/uL (1.5-5.0); LYMPH % 2.1 % (24.0-44.0); MEAN CORPUSCULAR HGB CONC 32.6 g/dl (32.0-36.5); MEAN CORPUSCULAR VOLUME 88.9 fl (80.0-96.0); MONO # 0.5 10^3/uL (0.0-0.8); MONO % 4.3 % (0.0-5.0); NEUTROPHILS # 11.2 10^3/uL (1.5-8.5); NEUTROPHILS % 91.4 % (36.0-66.0); PLATELET COUNT, AUTOMATED 252 10^3/uL (150-450); RED BLOOD COUNT 2.97 10^6/uL (4.00-5.40); WHITE BLOOD COUNT 12.2 10^3/uL (4.0-10.0)
[2020-01-31 05:41] LABS: ABG BASE EXCESS -1.4 (-2.0-2.0); ABG HCO3 22.5 MEQ/L (22.0-26.0); ABG O2 SATURATION 98.5 % (95.0-99.0); ABG PARTIAL PRESSURE CO2 34.5 mmHg (35.0-45.0); ABG PARTIAL PRESSURE O2 113.8 mmHg (75.0-100.0); ABG STANDARD HCO3 23.3 MEQ/L (22.0-26.0); ABG TOTAL CO2 23.6 MEQ/L (23.0-31.0); ABG pH (ARTERIAL) 7.433 UNITS (7.350-7.450)
[2020-01-31 05:53] LABS: CALCIUM LEVEL 7.8 MG/DL (8.8-10.2); CREATININE FOR GFR 1.05 MG/DL (0.55-1.30); GLOMERULAR FILTRATION RATE 52.7 (>32); POTASSIUM SERUM 3.4 MEQ/L (3.5-5.1)
[2020-01-31] MEDS: BUDESONIDE 0.5 MG/2 ML INHALATION SUSPENSION INH SCH ×2 (07:08→19:34)
[2020-01-31] MEDS: CILOSTAZOL 100 MG TAB (PLETAL) PO SCH ×2 (07:16→17:53)
[2020-01-31] MEDS: SLF 3 ML SYR IV SCH ×3 (07:16→20:56)
[2020-01-31] MEDS: MORPHINE 2 MG/ML 1ML VIAL (J2270) IV PRN ×2 (07:48→23:30)
--- NOTE | 2020-01-31 08:03 | REP ---
Clinical: Respiratory distress. Respiratory failure. Impression: 01/30/2020. Findings: Right IJ line with tip in the SVC. Endotracheal tube 3 cm above the peggy. Nasogastric tube courses below left hemidiaphragm. Multifocal infiltrates (left greater than right) along with moderate left pleural effusion is essentially unchanged from prior examination. Underlying chronic interstitial changes again noted. No pneumothorax. Impression: Bilateral multifocal infiltrates (left greater than right) with moderate left pleural effusion similar to prior examination. Electronically Signed by Jose Eduardo Olivera MD 01/31/2020 07:54 A
[2020-01-31] MEDS: PANTOPRAZOLE 40MG VIAL (C9113 PER 1) IV SCH ×2 (09:28→20:55)
[2020-01-31] MEDS: HEPARIN SOD (PORCINE) 5000UNITS/ML VIAL (J1644 PER 1000UNITS) SQ SCH ×2 (09:28→20:55)
[2020-01-31] MEDS: CHLORHEXIDINE GLUCONATE 0.12 % 15ML UDC (PERIDEX ORAL RINSE) MT SCH ×2 (09:28→20:55)
[2020-01-31] MEDS: CLOPIDOGREL 75 MG TAB PO SCH (09:28)
[2020-01-31] MEDS: cefTRIAXone SOD 1 GM in D5W MINI-BAG PLUS 50 ML IV SCH (09:29)
[2020-01-31] MEDS ORDERED: POTASSIUM CHL PWD 20 MEQ PACKET PO ONE (10:00)
[2020-01-31] MEDS: FORMOTEROL FUMARATE 20 MCG/2 ML INHALATION SOLUTION (PERFOROMIST) INH SCH ×2 (11:17→19:34)
[2020-01-31] MEDS: METOPROLOL TART 12.5 MG PER 1/2 TAB PO SCH ×3 (11:52→23:27)
--- NOTE | 2020-01-31 12:25 | CCN ---
DATE: 01/31/2020 Critical care time was 48 minutes; this excludes all procedure. Ms. Pardo remains intubated on mechanical ventilation, had episodes of atrial fibrillation with rapid ventricular response (RVR) overnight. Heart rates as high as 149, currently at 110. Blood pressure ranging from 130s to 160s. Sputum cultures came back with Klebsiella. Urine is less hemorrhagic today. On my arrival to the room this morning, she appears comfortable on mechanical ventilation. Physical Exam: Temperature this morning 99.1, pulse ranging 109-149, respiratory rate ranging 25-30 spontaneously overbreathing the vent which is set at 20, blood pressure was low as 100/66 with a MAP of 77 at 4 a.m. to most recently 153/65, oxygen saturation 95% on 0.35 FiO2 Remains on volume control, tidal volume 420, respiratory rate is 20, PEEP of 5, FIO2 of 0.35. GENERAL: The patient is sedated on mechanical ventilation, but does arouse easily. She has purposeful movements. There is no evidence of seizure activity. HEENT: Sclerae clear and anicteric. Pupils are equal and reactive to light and the pupils are approximately 6 mm in diameter and symmetric. Mucous membranes are moist. She has dentulous. Tongue is midline. Endotracheal tube is in place at 22 at the lip. Orogastric tube is in place and stained yellow mostly due to peridium administration. This was stopped. Neck is supple. No tracheal deviation or mass. Lymph no cervical supraclavicular axillary adenopathy. Right IJ triple lumen catheter in place without surrounding erythema or exudate. Irregularly irregular S1-S2 with a grade 3 to 4 systolic ejection murmur heard best at the left second intercostal space radiation to the carotids with variable upstroke. Point of maximal impulse (PMI) is displaced laterally. There is systemic edema greater in the left lower extremity than the right, pitting to the level of the knee. There is also sacral edema. PULMONARY: Decreased breath sounds at the left base. There are less rhonchi than yesterday. No expiratory wheeze. No retractions or accessory muscle use as on yesterday's exam. Expiratory phase is not prolonged. There is no dullness to percussion. Abdomen is soft, nontender, nondistended. No hepatosplenomegaly. No masses or hernia. Hypoactive bowel sounds are present. Extremities: Chronic venous stasis changes. Peripheral pulses are not palpable in the lower extremities. SKIN: Multiple areas of bruising of varying stages. No jaundice. No new rash. MUSCULOSKELETAL: Frail with significant muscle wasting. NEURO: No unilateral weakness. No tremor. No evidence of seizure activity. Purposeful movements have been observed. Laboratory evaluation shows sodium 144, potassium 3.4, chloride 109, bicarb of 26, BUN of 43, creatinine 1.05, hemoglobin is low at 8.6, hematocrit of 26.4 with a platelet count of 252, white blood cell count is down to 12.2, morning glucose is elevated at 258, albumin was not checked this morning; however, few days ago was low at 2.9. Chest x-ray Shows a persistent dense infiltrate in the left lower lobe with some vascular congestion on the right. No evidence of pleural effusion. No pneumothorax. Endotracheal tube is in good position. The triple-lumen catheter is in place with the tip in the SVC. IMPRESSION: 1. Respiratory failure, severe hypoxia. The patient was unable to maintain respirations on her own had severe retractions, started to spike troponin. Troponin peaked at 0.75. 2. Will continue on mechanical ventilation until more of the process has resolved and better her to intubation. 3. Klebsiella pneumonia. Culture data has returned sensitive to ceftriaxone. Will switch from vancomycin and Zosyn to ceftriaxone. 4. The patient appears to be out of shock at this point in time. MCV O2 was elevated yesterday suggesting shock. 5. Hyperglycemia. Will switch to Glucerna. The patient is on Solu-Medrol with history of diabetes on sliding scale insulin and Levemir. Will continue to monitor and add additional insulin as needed. 6. Hypokalemia replaced by mouth. 7. Protein malnourishment increasing tube feeds to goal. 8. Anemia, normocytic anemia likely from minimal blood loss versus dilution will continue to monitor for signs, symptoms of acute bleeding. Currently, there are none. Although she does have chronic bruising. She is on Plavix/Pletal because of her cardiovascular disease. 9. Cardiovascular and severe peripheral vascular disease. 10. Atrial fibrillation with rapid ventricular response. Despite her history of severe , I am adding low dose metoprolol as she has a fairly high blood pressure and heart rate is to going up to 149 on occasion. I am very cautiously monitoring her heart rate and blood pressure. Hold parameters were placed on metoprolol. 11. Deep vein thrombosis (DVT) prophylaxis with heparin. 12. Gastrointestinal (GI) prophylaxis with Protonix. The patient remains critically ill. Critical care time as mentioned above. This excludes all procedures. MTDD
[2020-01-31] MEDS: propofoL 1,000 MG in IV 1 EA IV SCH ×2 (13:29→23:25)
[2020-01-31] MEDS: MIDAZOLAM INJ 2MG/2ML VIAL (J2250 PER 1MG) IV PRN ×4 (15:57→20:09)
[2020-01-31] MEDS: ASPIRIN 81 MG ENTERIC TAB PO SCH (20:16)
[2020-02-01] VITALS (31 sets, daily range): BP systolic 88–181; BP diastolic 54–88; O2SAT 97
[2020-02-01] MEDS: MIDAZOLAM INJ 2MG/2ML VIAL (J2250 PER 1MG) IV PRN ×3 (02:06→16:01)
[2020-02-01] MEDS: IPRATROPIUM 0.5MG/ALBUTEROL 2.5MG INH SOL UD 3ML (DUONEB) NEB SCH ×6 (03:42→23:27)
[2020-02-01 04:40] LABS: HEMATOCRIT 26.3 % (36.0-47.0); HEMOGLOBIN 8.6 g/dl (12.0-15.5); MEAN CORPUSCULAR HEMOGLOBIN 29.2 pg (27.0-33.0); MEAN CORPUSCULAR HGB CONC 32.7 g/dl (32.0-36.5); MEAN CORPUSCULAR VOLUME 89.2 fl (80.0-96.0); PLATELET COUNT, AUTOMATED 258 10^3/uL (150-450); RED BLOOD COUNT 2.95 10^6/uL (4.00-5.40); WHITE BLOOD COUNT 13.9 10^3/uL (4.0-10.0)
[2020-02-01 04:53] LABS: LYMPHOCYTES 3 % (16-44); MONOCYTES 4 % (0-5); MYELOCYTES 3 % (0-0); NEUTROPHILS 90 % (28-66)
[2020-02-01 04:55] LABS: ANISOCYTOSIS 1+; PLATELET CLUMPS SMALL AMT; PLATELET ESTIMATE NORMAL (NORMAL); POLYCHROMASIA 1+
[2020-02-01 04:56] LABS: POIKILOCYTOSIS 1+
[2020-02-01] MEDS: propofoL 1,000 MG in IV 1 EA IV SCH ×4 (05:08→23:01)
[2020-02-01] MEDS: SLF 3 ML SYR IV SCH ×3 (05:09→21:04)
[2020-02-01] MEDS: METOPROLOL TART 12.5 MG PER 1/2 TAB PO SCH ×3 (05:09→18:13)
[2020-02-01 05:10] LABS: BLOOD UREA NITROGEN 42 MG/DL (7-18); CALCIUM LEVEL 8.3 MG/DL (8.8-10.2); CARBON DIOXIDE LEVEL 28 MEQ/L (21-32); CHLORIDE LEVEL 111 MEQ/L (98-107); CREATININE FOR GFR 0.87 MG/DL (0.55-1.30); GLOMERULAR FILTRATION RATE > 60.0 (>32); GLUCOSE, FASTING 201 MG/DL (70-100); POTASSIUM SERUM 3.8 MEQ/L (3.5-5.1); SODIUM LEVEL 147 MEQ/L (136-145)
[2020-02-01] MEDS: HumaLOG INSULIN (NovoLOG) PER UNIT SC SCH ×3 (05:18→18:13)
[2020-02-01 05:51] LABS: ABG BASE EXCESS 0.1 (-2.0-2.0); ABG HCO3 24.1 MEQ/L (22.0-26.0); ABG O2 SATURATION 96.8 % (95.0-99.0); ABG PARTIAL PRESSURE CO2 36.7 mmHg (35.0-45.0); ABG STANDARD HCO3 24.6 MEQ/L (22.0-26.0); ABG TOTAL CO2 25.3 MEQ/L (23.0-31.0); ABG pH (ARTERIAL) 7.436 UNITS (7.350-7.450)
[2020-02-01] MEDS: FORMOTEROL FUMARATE 20 MCG/2 ML INHALATION SOLUTION (PERFOROMIST) INH SCH ×2 (07:17→20:32)
[2020-02-01] MEDS: BUDESONIDE 0.5 MG/2 ML INHALATION SUSPENSION INH SCH ×2 (07:17→20:32)
[2020-02-01] MEDS: CLOPIDOGREL 75 MG TAB PO SCH (08:06)
[2020-02-01] MEDS: CILOSTAZOL 100 MG TAB (PLETAL) PO SCH ×2 (08:06→15:49)
[2020-02-01] MEDS: CHLORHEXIDINE GLUCONATE 0.12 % 15ML UDC (PERIDEX ORAL RINSE) MT SCH ×2 (08:06→21:03)
[2020-02-01] MEDS: PANTOPRAZOLE 40MG VIAL (C9113 PER 1) IV SCH ×2 (08:07→21:03)
[2020-02-01] MEDS: HEPARIN SOD (PORCINE) 5000UNITS/ML VIAL (J1644 PER 1000UNITS) SQ SCH ×2 (08:07→21:04)
[2020-02-01] MEDS: cefTRIAXone SOD 1 GM in D5W MINI-BAG PLUS 50 ML IV SCH (09:00)
--- NOTE | 2020-02-01 09:03 | REP ---
REASON: Followup. COMPARISON: Multiple, the latest prior yesterday at 6:20 a.m. The technique utilized in obtaining the radiograph has magnified the cardiac silhouette and accentuated the interstitial markings. The tubes and line are unchanged. The cardiomediastinal silhouette and lung worthy are unchanged. The osseous structures are unchanged. IMPRESSION: No significant change. Bilateral lung worthy opacities persist. Electronically Signed by Vishal Banda DO 02/01/2020 01:21 P
[2020-02-01] MEDS: MORPHINE 2 MG/ML 1ML VIAL (J2270) IV PRN ×3 (10:35→21:06)
[2020-02-01] MEDS: methylPREDNISolone INJ 40 MG/1 ML VIAL (J2920) IV SCH (11:50)
--- NOTE | 2020-02-01 13:51 | CCN ---
DATE: 01/28/2020 Ms. Pardo is resting comfortably this morning and sedated. No acute events overnight. The patient was agitated and given Versed overnight. She did not have episodes of atrial fibrillation (AFib) with rapid ventricular response (RVR) overnight.This morning patient is resting comfortably in bed. Heart rate controlled at 96, irregularly irregular rhythm. She had a total intake of 1.6 liters of fluids with an output of 1.13L and a net positive of 442 mL. This morning, she had an intake about 231 mL with output of 70 mL with a net positive of 161mL. She failed a spontaneous breathing trial with desaturation within minutes. The patient is put back on sedation. REVIEW OF SYSTEMS: Cannot be assessed due to patient's intubated status. PHYSICAL EXAMINATION: VITAL SIGNS: Pulse of 96. Respirations of 21. Oxygen saturation 98%. Blood pressure 88/54, mean arterial pressure (MAP) of 75. Temperature 97.8. GENERAL: The patient is sedated on mechanical ventilation. [place] coma scale (GCS) score 5 for spontaneous eye movement. Verbal cannot be assessed due to intubation motor unobtainable due to intubation. HEENT: Sclerae are clear and anicteric. Pupils equal, reactive to light. Pupils are approximately 4 mm in diameter, symmetric. Mucous membranes are moist. Tongue is midline. Endotracheal tube is in place at 24 at the lip. Orogastric tube is in place. Neck is supple. No tracheal deviation or mass palpated. No cervical, supraclavicular or axillary adenopathy. Right internal jugular (IJ) triple lumen catheter in place with no erythema or exudate. There is some residual blood around the IJ catheter. Cardiac: Irregularly irregular. S1, S2 with grade 3 systolic ejection murmur likely secondary to patient's aortic stenosis. Point of maximum impulse (PMI) is slight displaced laterally. Edema 3+ in left and right lower extremities. Pulmonary: Decreased breath sounds at the left base. Wheezing in the left lateral lung bases. No rhonchi heard. No retractions or accessory muscle use. No dullness to percussion. Abdomen: Soft. Nondistended. Hypoactive bowel sounds are present. No hepatosplenomegaly. No masses or hernia. Extremities: The patient has chronic venous stasis changes with bruising throughout lower extremities bilaterally. There are new wounds with pus in the right lower extremity in two places. Peripheral pulses are not palpable in the lower extremities bilaterally. Skin: Multiple areas of bruising with various stages of healing. New onset of wound with pus that has been dressed. Location is in front of the right leg and another in the back of the leg right below the posterior knee. No jaundice. No new rashes. Musculoskeletal: Patient has muscle wasting and limited range of motion. Neurologic: No tremors. No seizure activity. Purposeful movements have been observed. LABORATORY DATA: White count 13.9, hemoglobin and hematocrit 8.6/26.3, platelet 258. Sodium 147, potassium 3.8, chloride 111, bicarbonate 28, BUN and creatinine 42/0.87, blood sugar 218. ABG pH 7.436, pCO2 36.7, oxygen saturation 96.8%. Chest x-ray on 02/01/2020 shows multifocal pneumonia, infiltrates concentrated in the left lower lobe. ASSESSMENT AND PLAN: 1. Acute hypoxic respiratory failure. Patient currently on AC/VC tidal volume 420, respiration 20, PEEP of 5, FiO2 30%. Patient failed spontaneous breathing trial with desaturation within minutes. Patient is now back on sedation. 2. Multifocal pneumonia. Blood cultures negative. Sputum culture showed Klebsiella pneumoniae. Patient is to continue on Rocephin 1 gram IV every 24 hours. White count has been trending down, 13.9 on 02/01/2020. 3. hypernatremia. Sodium this am 147- 30ml of free water ordered to give via tube feed 4. Hyperglycemia. Will continue on Glucerna at 50 mL/h. Patient is on Solu-Medrol 40, which may contribute to increase in blood sugar. We will add Levemir 10 units at bedtime and watch for hypoglycemia. Accu-Chek's before food and nightly and follow hypoglycemic protocol. 5. chronic venous stasis wounds. 2 wounds on anterior and posterior of R leg which has pus. Has been dressed overnight. Wound cx and gram stain ordered 6. Normocytic anemia. Hemoglobin and hematocrit 8.6, 26.3 likely secondary to minimal blood loss. No symptoms or signs of acute bleeding. She is on Plavix and Pletal due to her cardiovascular disease. 7. Atrial fibrillation with rapid ventricular response. Rate is controlled on metoprolol. Blood pressure has been controlled since starting metoprolol. Blood pressure today is 88/54 with a MAP of 25. We will continue to closely monitor her blood pressure and heart rate. 8. Deep venous thrombosis (DVT) prophylaxis with heparin. 9. Gastrointestinal (GI) prophylaxis with Protonix. Critical care time was 1 hours and 32 minutes; this excludes all procedures. ADDENDUM: I, Noé Kirkland, attended Chastity Pardo this morning, performed a physical exam. I agree with the assessment and plan as outlined by the resident. This patient has pneumonia currently without shock. Failed spontaneous breathing trial this morning, desaturated on 11/30. There is some discrepancy of blood pressures between right and left arm. However, the patient is critically ill and prior imaging did not suggest any dissection or any other aortic issue. She has known aortic stenosis, severe in nature. At this point in time, she would not be able to undergo corrective surgery if she did have a catastrophic aortic issue. We will therefore closely monitor blood pressure. We are using low-dose metoprolol for atrial fibrillation (AFib) with rapid ventricular response (RVR). 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 She has two wounds on her right lower extremity and will culture those wounds today. Critical care time as mentioned above; this excludes all procedures. Addendum Dictated: 02/01/2020 [id number] Addendum Transcribed: 02/01/2020 1228 toshia TORREZ
[2020-02-01] MEDS: ASPIRIN 81 MG ENTERIC TAB PO SCH (21:00)
[2020-02-01] MEDS: LEVEMIR (INSULIN DETEMIR) 1 UNITS/0.01ML SC SCH (21:04)
[2020-02-02] VITALS (26 sets, daily range): BP systolic 123–225; BP diastolic 60–129; O2SAT 93–98
[2020-02-02] MEDS: METOPROLOL TART 12.5 MG PER 1/2 TAB PO SCH ×4 (00:53→17:26)
[2020-02-02] MEDS: methylPREDNISolone INJ 40 MG/1 ML VIAL (J2920) IV SCH (00:54)
[2020-02-02] MEDS: HumaLOG INSULIN (NovoLOG) PER UNIT SC SCH ×4 (00:54→17:30)
[2020-02-02] MEDS: propofoL 1,000 MG in IV 1 EA IV SCH ×2 (03:05→07:13)
[2020-02-02] MEDS: IPRATROPIUM 0.5MG/ALBUTEROL 2.5MG INH SOL UD 3ML (DUONEB) NEB SCH ×5 (04:22→20:00)
[2020-02-02] MEDS: MORPHINE 2 MG/ML 1ML VIAL (J2270) IV PRN (05:21)
[2020-02-02 05:31] LABS: HEMATOCRIT 26.9 % (36.0-47.0); HEMOGLOBIN 8.6 g/dl (12.0-15.5); MEAN CORPUSCULAR HEMOGLOBIN 29.1 pg (27.0-33.0); MEAN CORPUSCULAR VOLUME 90.9 fl (80.0-96.0); PLATELET COUNT, AUTOMATED 261 10^3/uL (150-450); RED BLOOD COUNT 2.96 10^6/uL (4.00-5.40); WHITE BLOOD COUNT 16.2 10^3/uL (4.0-10.0)
[2020-02-02 05:48] LABS: ANISOCYTOSIS 1+; EOSINOPHILS 1 % (0-3); LYMPHOCYTES 4 % (16-44); METAMYELOCYTES 1 % (0-0); MONOCYTES 4 % (0-5); MYELOCYTES 5 % (0-0); NEUTROPHILS 83 % (28-66); PLATELET ESTIMATE NORMAL (NORMAL)
[2020-02-02 05:49] LABS: PLATELET CLUMPS SMALL AMT
[2020-02-02 05:50] LABS: BURR CELLS 1+; POIKILOCYTOSIS 1+; POLYCHROMASIA 1+
[2020-02-02 05:59] LABS: ABG BASE EXCESS 3.7 (-2.0-2.0); ABG HCO3 28.1 MEQ/L (22.0-26.0); ABG O2 SATURATION 95.4 % (95.0-99.0); ABG PARTIAL PRESSURE CO2 42.1 mmHg (35.0-45.0); ABG PARTIAL PRESSURE O2 76.4 mmHg (75.0-100.0); ABG STANDARD HCO3 27.8 MEQ/L (22.0-26.0); ABG TOTAL CO2 29.4 MEQ/L (23.0-31.0); ABG pH (ARTERIAL) 7.443 UNITS (7.350-7.450)
[2020-02-02] MEDS: SLF 3 ML SYR IV SCH ×3 (06:03→20:08)
[2020-02-02 06:08] LABS: BLOOD UREA NITROGEN 44 MG/DL (7-18); CALCIUM LEVEL 8.7 MG/DL (8.8-10.2); CARBON DIOXIDE LEVEL 27 MEQ/L (21-32); CHLORIDE LEVEL 111 MEQ/L (98-107); CREATININE FOR GFR 0.83 MG/DL (0.55-1.30); GLOMERULAR FILTRATION RATE > 60.0 (>32); GLUCOSE, FASTING 233 MG/DL (70-100); POTASSIUM SERUM 4.4 MEQ/L (3.5-5.1); SODIUM LEVEL 144 MEQ/L (136-145)
[2020-02-02] MEDS: FORMOTEROL FUMARATE 20 MCG/2 ML INHALATION SOLUTION (PERFOROMIST) INH SCH ×2 (07:34→20:20)
[2020-02-02] MEDS: BUDESONIDE 0.5 MG/2 ML INHALATION SUSPENSION INH SCH ×2 (07:34→20:20)
[2020-02-02] MEDS: CILOSTAZOL 100 MG TAB (PLETAL) PO SCH ×2 (07:58→17:26)
[2020-02-02] MEDS: CLOPIDOGREL 75 MG TAB PO SCH (08:01)
[2020-02-02] MEDS: HEPARIN SOD (PORCINE) 5000UNITS/ML VIAL (J1644 PER 1000UNITS) SQ SCH ×2 (08:06→20:07)
[2020-02-02] MEDS: CHLORHEXIDINE GLUCONATE 0.12 % 15ML UDC (PERIDEX ORAL RINSE) MT SCH (08:06)
[2020-02-02] MEDS: PANTOPRAZOLE 40MG VIAL (C9113 PER 1) IV SCH ×2 (08:06→20:07)
[2020-02-02] MEDS: cefTRIAXone SOD 1 GM in D5W MINI-BAG PLUS 50 ML IV SCH (10:16)
--- NOTE | 2020-02-02 11:37 | REP ---
REASON FOR EXAM: Followup Multiple priors reviewed. The latest yesterday at 6:06 a.m. The tubes and lines are unchanged. Patchy left base opacities silhouetting out the diaphragmatic surface of the left lung and left heart border unchanged. Diffuse increase in the interstitial markings throughout the lung worthy, stable. No definite new abnormal opacities seem to have developed on this limited portable exam. The technique utilized in obtaining the radiograph has magnified the cardiac silhouette and accentuated the interstitial markings. There is no change in the osseous structures. IMPRESSION: No significant change. Electronically Signed by Vishal Banda DO 02/02/2020 05:31 P
[2020-02-02] MEDS: LABETALOL 100MG/20ML VIAL IV SCH ×2 (12:26→19:08)
--- NOTE | 2020-02-02 13:07 | CCN ---
DATE: 02/02/2020 Ms. Pardo is resting comfortably this morning and sedated. No acute events reported by nursing staff overnight. The patient was not agitated and was not given any Versed. Blood pressure is currently controlled, although there's a discrepancy in reading b/t her L and R arm. This morning it was 131/60 with a MAP of 86, heart rate 87, irregularly irregular rhythm. Over 24 hours, her input was 1667 mL with an output of 865 mL, net positive of 792. This morning she had 100 mL of intake with an output of 150, net negative 50 mL. She tolerated a spontaneous breathing trial this morning and was successfully extubated, now on aerosolized mask 40% saturating at 95%. REVIEW OF SYSTEMS: Cannot be assessed due to patient's intubated status PHYSICAL EXAM: VITAL SIGNS: Blood pressure 131/60. Heart rate 87. Respiration 22. Oxygen saturation 95%. Temperature 98.1 GENERAL: The patient is sedated on mechanical ventilation. [place] coma scale (GCS) score of 5 for spontaneous eye movement. Verbal and motor cannot be assessed due to intubation status. HEENT: Sclerae are clear and anicteric. Pupils equal and reactive to light. Pupils are approximately 3 mm in diameter, symmetric. Mucous membranes are moist. Tongue is midline. Endotracheal tube is in place today at 24 at the lip. Orogastric (OG) tube is in place. Neck is supple. No tracheal deviation or mass palpated. No cervical, supraclavicular, or axillary adenopathy. Right internal jugular (IJ) triple lumen catheter in place with no erythema or exudate. There is some residual blood around the IJ catheter. Cardiac: Irregularly irregular rhythm. S1, S2 with grade 3 systolic ejection murmur likely secondary to patient's aortic stenosis. Point of maximum impulse (PMI) is slight displaced laterally. No peripheral edema bilaterally. Pulmonary: No decreased breath sounds. Wheezing appreciated in the right and left anterior and lateral lobes. No rhonchi or rales heard. No retractions or accessory muscle use. No dullness to percussion. Abdomen: Soft. Nondistended. Hypoactive bowel sounds are present. No hepatosplenomegaly. No masses or hernias palpated. Extremities: The patient has chronic venous stasis changes with bruising. The wounds have been dressed on the right leg anteriorly and posteriorly. Peripheral pulses are not palpable in the lower extremities bilaterally. Skin: Multiple areas of bruising with various stages of healing. Wounds on the right leg have been dressed appropriately. No jaundice. No new rashes. Musculoskeletal: The patient has muscle wasting and limited range of motion. Neurologic: No tremors. No seizure activity. Purposeful movements have been observed. LABORATORY DATA: White count 16.2, hemoglobin/hematocrit (H/H) 5.6/26.9, platelet 261. Sodium 144, potassium 4.4, chloride 111, bicarbonate 27, BUN and creatinine 44/0.83, glucose 233. ABG 7.443, pCO2 42, pulse oximetry 95%. On AC/VC, tidal volume 420, respiration 20, PEEP 5, FiO2 35%. Chest x-ray on 02/02/2020, left lower lobe consolidation infiltrate seen but improved from yesterday's chest x-ray. ASSESSMENT/PLAN: 1. Acute hypoxic respiratory failure. Patient tolerated spontaneous breathing trial well and was successfully extubated. Patient is on aerosolized mask 40% saturating at 95%. 2. Multifocal pneumonia. Blood cultures negative. Sputum culture showed Klebsiella pneumoniae. Patient is to continue on Rocephin 1 gram IV every 24 hours. White count increased from yesterday, today it is 16.2. We will continue to monitor white count. Patient has clinically improved and chest x-ray has improved as well. We will discontinue Solu-Medrol 40 twice a day. 3. Hyperglycemia. Blood sugar 233 secondary to steroid use. We have discontinued steroids due to patient's improved clinical status. We will continue to monitor blood sugar closely. Continue Levemir 10 units and lispro on the current regimen and watch for hypoglycemia, Accu-Chek's before food and nightly and follow hypoglycemic protocol. 4. Chronic stasis wounds. Wound culture and Gram-stain ordered and currently pending results. Wounds have been dressed appropriately on right leg. 5. Normocytic anemia. Hemoglobin and hematocrit 8.6/26.9 likely secondary to minimal blood loss. No signs or symptoms of acute bleeding. Patient is on Plavix, ASA, and Pletal due to her cardiovascular disease. 6. Atrial fibrillation with rapid ventricular response (RVR). Rate is borderline ranging from 80s-100s with max HR of 103 overnight. We will continue to monitor blood pressure and heart rate closely. Blood pressure today 131/60 with a MAP of 86. 7. Deep venous thrombosis (DVT) prophylaxis with heparin. 8. Gastrointestinal (GI) prophylaxis with Protonix. 9. Patient is on contact precautions due to positive MRSA results from the nasal swab result from 01/28/2020. 10. Pt is on aspiration precautions - Speech and swallow eval - pending Currently NPO ADDENDUM: Critical care time was 1 hour and 16 minutes; this excludes all procedures. I agree with the assessment and plan as outlined by the resident above after I performed my own independent physical exam at bedside this morning, perform spontaneous breathing trial the patient passed fairly well with a shallow breathing index ranging in the 90s. No desaturation with spontaneous breathing trial this morning. Therefore, a trial of extubation was performed. The patient continues with Klebsiella pneumoniae, atrial fibrillation (AFib) with rapid ventricular response (RVR), aortic stenosis, hematuria, and severe peripheral vascular disease with concern of differing blood pressures from her left arm to her right arm. No evidence of renal failure. No evidence of continued shock. Will continue to monitor the patient but will invite the medicine team back onboard to start to resume care. Addendum dictated: [id number] Noé Kirkland DO Addendum transcribed: 02/02/2020 1134 toshia TORREZ
--- NOTE | 2020-02-02 14:07 | IPNPDOC ---
Text Note Date of Service The patient was seen on 02/02/20. NOTE Subjective: Patient is an 89-year-old female with a PMHx of Aortic stenosis, Peripheral vascular disease, HTN, Suspected Diastolic CHF, COPD / Chronic hyp oxic respiratory failure (on 3L O2), DLP, who presented to the hospital with confusion and shortness of breath. Upon arrival to ER, patient had a fever / SOB / confusion, suspected to be 2/2 PNA. She was admitted to the hospitalist service for further evaluation and treatment of the pneumonia. Patient had progression of her hypoxia and was eventually intubated on 01/29 by instrument maker apprentice after discussion with son about goals of care. The wanted her to remain full code with intubation and aggressive support. Patient did not require any pressor support while in the ICU and was eventually extubated on 02/01. Patient was seen and examined at the bedside. Patient is able to follow simple commands, unable to answer specific questions. Objective: Vitals (See below) General: Lying in bed, appears to be complaining of pain, AAOx3 HEENT: NC, AT CVS: +S1S2 Lungs: Poor inspiratory effort, no rhonchi / crackles / wheezing Abdomen: Soft, ND, NT Extremities: 1+ pitting edema, - Calf tenderness Skin: RLE distal / medial side - purulent drainage noted, RLE lateral knee - skin tear Imaging: - CT chest 01/27: 1. Large areas of consolidation along with scattered alveolar and interstitial infiltrates primarily involving the left hemithorax along with moderate left pleural effusion, scattered right apical and basilar atelectasis and small right pleural effusion. Findings suggest multifocal pneumonia and require clinical correlation. 2. Cardiomegaly, extensive atherosclerotic disease and evidence for chronic pulmonary vascular congestion. - CXR 02/01: Multiple priors reviewed. The latest yesterday at 6:06 a.m. The tubes and lines are unchanged. Patchy left base opacities silhouetting out the diaphragmatic surface of the left lung and left heart border unchanged. Diffuse increase in the interstitial markings throughout the lung worthy, stable. No definite new abnormal opacities seem to have developed on this limited portable exam. The technique utilized in obtaining the radiograph has magnified the cardiac silhouette and accentuated the interstitial markings. There is no change in the osseous structures. Assessment and plan: Acute hypoxic respiratory failure - likely 2/2 klebsiella pneumonia - s/p ventilator dependent respiratory failure - Hemodynamically stable / afebrile - Leukocytosis improving - Sputum culture 01/28: klebsiella pneumoniae - Blood cultures 01/27: Negative at 5 days - c/w Ceftriaxone; s/p Zosyn and Vancomycin Hematuria - Kellogg catheter in place - Will continue to follow urine output Peripheral vascular disease - c/w ASA, Plavix and Cilostazol Atrial fibrillation - c/w metoprolol if tolerating PO - Will given Labetalol if until to take PO medications (re: HTN / HR) - c/w ASA; not on full anticoagulation COPD / Chronic hypoxic respiratory failure (on 3L O2) - No evidence of wheezing - s/p Solumedrol - c/w inhaled therapy as ordered Suspected Diastolic CHF / Aortic stenosis - Some evidence of LE edema - Will order ECHO - Will give single dose of Furosemide 20 IV DLP - Currently not one medications IDDM2 with hyperglycemia - c/w ISS and long acting Levemir Coronary artery disease - NSTEMI: Type II - likely 2/2 sepsis - EKG noted - Troponin has remained stable - c/w ASA, Plavix, Metoprolol, HTN - BP moderately elevated - c/w Metoprolol; will start Labetalol IV given aspiration risk s/p Lactic acidosis Chronic pain - Will resume hydrocodone / acetaminophen within 24 hours GI prophylaxis - c/w Protonix DVT prophylaxis - c/w Heparin Disposition: - Will remain in ICU; consider downgrade in 24 hours VS,Fishbone, I+O VS, Fishbone, I+O Laboratory Tests 02/02/20 05:24 Vital Signs Date Time Temp Pulse Resp B/P (MAP) Pulse Ox O2 Delivery O2 Flow Rate FiO2 02/02/20 13:00 97 28 123/63 (83) 95 Aerosol Mask 40 02/02/20 12:00 98.6 01/31/20 07:58 35.0 I&O- Last 24 Hours up to 6 AM 02/02/20 06:00 Intake Total 1464.2 ml Output Total 750 ml Balance 714.2 ml LOREE ALONSO MD Feb 02, 2020 14:07
[2020-02-02] MEDS ORDERED: FUROSEMIDE 20MG/2ML VIAL (J1940) IV ONE (14:15)
[2020-02-02] MEDS: ALBUTEROL SULFATE 2.5 MG/0.5 ML INH NEB SOLN NEB PRN ×2 (14:28→17:12)
[2020-02-02] MEDS ORDERED: SODIUM CHLORIDE 0.9% INJ 10 ML SYR IV PRN (15:00)
[2020-02-02] MEDS: ASPIRIN 81 MG ENTERIC TAB PO SCH (19:38)
[2020-02-02 19:52] LABS: C REACTIVE PROTEIN QUANTITATIV 5.86 MG/DL (0.00-0.30)
[2020-02-02] MEDS ORDERED: ACETAMINOPHEN *IV* 1,000 MG in IV 1 EA IV ONE (20:00)
[2020-02-02] MEDS ORDERED: DEXTROSE 50% 50 ML SYRINGE IV PRN (20:00)
[2020-02-02] MEDS ORDERED: GLUCAGON INJ 1MG VIAL SC PRN (20:00)
[2020-02-02] MEDS ORDERED: BISACODYL 10 MG SUPP PR ONE (20:00)
[2020-02-02] MEDS ORDERED: GLUCOSE 4GM CHEW TABLET PO PRN (20:00)
[2020-02-02] MEDS: LEVEMIR (INSULIN DETEMIR) 1 UNITS/0.01ML SC SCH (20:08)
[2020-02-02] MEDS: SODIUM CHLORIDE 0.9% INJ 10 ML SYR IV SCH (20:10)
[2020-02-02] MEDS ORDERED: HumaLOG INSULIN (NovoLOG) PER UNIT SC SCH (21:00)
[2020-02-03] VITALS (7 sets, daily range): BP systolic 110–153; BP diastolic 62–108; O2SAT 93
[2020-02-03] MEDS ORDERED: HumaLOG INSULIN (NovoLOG) PER UNIT SC SCH
[2020-02-03] MEDS: METOPROLOL TART 12.5 MG PER 1/2 TAB PO SCH
[2020-02-03] MEDS: IPRATROPIUM 0.5MG/ALBUTEROL 2.5MG INH SOL UD 3ML (DUONEB) NEB SCH ×5 (00:15→15:06)
[2020-02-03] MEDS ORDERED: SCOPOLAMINE 1MG TRANSDERMAL PATCH TOP PRN (02:00)
[2020-02-03] MEDS ORDERED: BISACODYL 10 MG SUPP PR PRN (02:00)
[2020-02-03] MEDS ORDERED: FLEET ENEMA PR PRN (02:00)
[2020-02-03] MEDS ORDERED: ONDANSETRON 4MG/2ML VIAL IV PRN (02:00)
[2020-02-03] MEDS ORDERED: ACETAMINOPHEN 650 MG SUPP PR PRN (02:00)
[2020-02-03] MEDS ORDERED: ATROPINE SULFATE 1% OP SOLN 2 ML BTL SL PRN (02:00)
[2020-02-03] MEDS: LORazepam 2 MG/ML VIAL IV PRN ×3 (02:43→16:57)
[2020-02-03] MEDS: MORPHINE 2 MG/ML 1ML VIAL (J2270) IV PRN ×7 (03:32→16:57)
[2020-02-03] MEDS: SLF 3 ML SYR IV SCH ×2 (06:30→14:00)
[2020-02-03] MEDS: SODIUM CHLORIDE 0.9% INJ 10 ML SYR IV SCH ×2 (06:30→14:15)
[2020-02-03] MEDS: FORMOTEROL FUMARATE 20 MCG/2 ML INHALATION SOLUTION (PERFOROMIST) INH SCH (07:41)
[2020-02-03] MEDS: BUDESONIDE 0.5 MG/2 ML INHALATION SUSPENSION INH SCH (07:41)
--- NOTE | 2020-02-03 10:23 | CCN ---
DATE OF SERVICE: 02/03/2020 Critical care note from 1:00 a.m. this morning to approximately 1:48 this morning. This excludes all procedures. Chastity had a decline and continued to be tachypneic, was uncomfortable, saying "help me." The family had quite a bit of a discussion with me and the nursing staff and eventually had decided on comfort measures only, which I think is very reasonable given her significant cardiac history, cardiovascular history, inability to sustain breathing off of mechanical ventilation despite passing a spontaneous breathing trial unsupported. Therefore, it was determined to make her comfortable. She has been placed on comfort measures only. She is DO NOT RESUSCITATE (DNR)/DO NOT INTUBATE (DNI). We will continue to monitor her comfort.
--- NOTE | 2020-02-03 13:53 | IPNPDOC ---
Text Note Date of Service The patient was seen on 02/03/20. NOTE Subjective: Patient is an 89-year-old female with a PMHx of Aortic stenosis, Peripheral vascular disease, HTN, Suspected Diastolic CHF, COPD / Chronic hypoxic respiratory failure (on 3L O2), DLP, who presented to the hospital with confusion and shortness of breath. Upon arrival to ER, patient had a fever / SOB / confusion, suspected to be 2/2 PNA. She was admitted to the hospitalist service for further evaluation and treatment of the pneumonia. Patient had progression of her hypoxia and was eventually intubated on 01/29 by automated access systems technician after discussion with son about goals of care. The wanted her to remain full code with intubation and aggressive support. Patient did not require any pressor support while in the ICU and was eventually extubated on 02/01. On 02/01 evening, patient had worsening respiratory function and was ultimately made comfort measures after discussion with automated access systems technician and family. Patient was seen and examined at the bedside. Patient son was present at the bedside and I have addressed all his questions and concerns. Objective: Vitals (See below) General: Lying in bed, appears to be comfortable Full exam not completed Imaging: - CT chest 01/27: 1. Large areas of consolidation along with scattered alveolar and interstitial infiltrates primarily involving the left hemithorax along with moderate left pleural effusion, scattered right apical and basilar atelectasis and small right pleural effusion. Findings suggest multifocal pneumonia and require clinical correlation. 2. Cardiomegaly, extensive atherosclerotic disease and evidence for chronic pulmonary vascular congestion. - CXR 02/01: Multiple priors reviewed. The latest yesterday at 6:06 a.m. The tubes and lines are unchanged. Patchy left base opacities silhouetting out the diaphragmatic surface of the left lung and left heart border unchanged. Diffuse increase in the interstitial markings throughout the lung worthy, stable. No definite new abnormal opacities seem to have developed on this limited portable exam. The technique utilized in obtaining the radiograph has magnified the cardiac silhouette and accentuated the interstitial markings. There is no change in the osseous structures. Assessment and plan: Acute hypoxic respiratory failure - likely 2/2 klebsiella pneumonia Hematuria Peripheral vascular disease Atrial fibrillation COPD / Chronic hypoxic respiratory failure (on 3L O2) Suspected Diastolic CHF / Aortic stenosis DLP IDDM2 with hyperglycemia Coronary artery disease NSTEMI: Type II - likely 2/2 sepsis HTN s/p Lactic acidosis Chronic pain GI prophylaxis DVT prophylaxis Plan: - Patient has been transitioned to comfort measures - She is DNR and DNI after discussion with family - Nonessential medications were discontinued and medications for comfort alone were instituted Disposition: - Transitioned to [employer] - Will likely downgrade today VS,Fishbone, I+O VS, Fishbone, I+O Vital Signs Date Time Temp Pulse Resp B/P (MAP) Pulse Ox O2 Delivery O2 Flow Rate FiO2 02/03/20 06:36 38 02/03/20 04:00 40 02/03/20 01:07 98.2 79 114/62 (82) 88 Aerosol Mask 02/03/20 00:15 10.0 I&O- Last 24 Hours up to 6 AM 02/03/20 06:00 Intake Total 210 ml Output Total 1500 ml Balance -1290 ml LOREE ALONSO MD Feb 03, 2020 13:53
--- NOTE | 2020-02-04 08:24 | CCN ---
DATE: 02/03/2020 Ms. Chastity Pardo had a decline overnight and continues to be tachypneic. This morning, she was breathing in the 35s. She was uncomfortable overnight and kept saying, "help me". Dr. Kirkland had discussed with the family about her condition and eventually the power of sports attorney who is the patient's son decided on comfort measures only. Currently, she is DO NOT RESUSCITATE and DO NOT INTUBATE. This morning, she was breathing on aerosol mask 40% and satting at 95%. She is in no acute distress and non-agitated. REVIEW OF SYSTEMS: Cannot be assessed due to patient's mentation. PHYSICAL EXAMINATION: Vital Signs: Blood pressure 114/62. Heart rate 79. Respirations 35 Oxygen saturation 95% on aerosolized mask 40%. Temperature 98.2. Pulse 79. General: The patient is resting comfortably on aerosolized mask 40% and satting well in the 96%. HEENT: Sclerae clear and anicteric. Pupils equal and reactive to light. Pupils are approximately 3 mm in diameter, symmetric. Mucous membranes are dry. Tongue is midline. Neck is supple. No tracheal deviations or mass palpated. No cervical, supraclavicular or axillary adenopathy palpated. Right internal jugular (IJ) triple lumen catheter in place with no erythema or exudate. There is some residual blood around the IJ catheter. Cardiac: Irregularly irregular rhythm. S1, S2, with grade 3 systolic ejection murmur likely secondary to patient's aortic stenosis. Point of maximal impulse (PMI) is slightly displaced laterally. No peripheral edema bilaterally. Pulmonary: No decreased breath sounds. No wheezing appreciated. No rhonchi or rales heard. No retractions or accessory muscle use. The patient is tachypneic, breathing around 33 to 35 on aerosolized mask 40%. No dullness to percussion. Abdomen: Soft. Nondistended. Hypoactive bowel sounds are present. No hepatosplenomegaly. No masses or hernias palpated. Extremities: The patient has chronic venous stasis changes with bruising. The wounds have been dressed on right leg. Peripheral pulses are not palpable in the lower extremities bilaterally. Skin: Multiple areas of bruising. Various stages of healing wounds on the right leg that have been dressed appropriately. No jaundice. No new rashes. Musculoskeletal: The patient has muscle wasting and has limited range of motion. Neurologic: No tremors. No seizure activity. Purposeful movements have been observed. LABS: The patient is comfort measures, no labs. ASSESSMENT AND PLAN: 1. Acute hypoxic respiratory failure. The patient is comfortable on aerosolized mask 40% saturating at 95%. No signs of pain or agitation. Will continue to closely monitor her condition and keep her comfortable with pain medications. The patient is tachypneic this morning with respiratory rate of 35. We have increased her morphine. Morphine was changed from 2 mg IV every 2 hours to 2 mg every 15 minutes as needed. As well, Ativan 1 mg every 2 hours as needed. 2. Multifocal pneumonia. Blood cultures negative. Sputum culture showed Klebsiella pneumoniae. The patient is still on Rocephin 1 gram IV every 24 hours. 3. Chronic stasis wounds. Wound culture and gram stain came back with Staphylococcus aureus. Wounds have been dressed appropriately on right leg and will continue wound dressing changes accordingly. 4. Atrial fibrillation with rapid ventricular response (RVR). Rate is controlled. Heart rate today 79. Blood pressure controlled 114/62. We will continue to monitor blood pressure and heart rate closely. The patient is comfort measures only and by mouth medications had been discontinued due to comfort measures and due to patient's inability to swallow. I, Noé Kirkland, after conducting an independent history and physical exam at bedside this morning, agree with the assessment and plan as outlined above. Please see separate note from earlier this am. Patient is on comfort measures but quite tachypneic so I increased morphine. Will continue to evaluate patient's level of comfort. Updated son at bedside , MTDD
--- NOTE | 2020-02-04 17:36 | DS.PDOC ---
Discharge Summary General Date of Admission Jan 28, 2020 at 13:46 Date of Discharge 02/03/2020 Discharge Summary ADMITTING DIAGNOSES / DISCHARGE DIAGNOSES: Acute hypoxic respiratory failure - likely 2/2 klebsiella pneumonia Hematuria Peripheral vascular disease Atrial fibrillation COPD / Chronic hypoxic respiratory failure (on 3L O2) Suspected Diastolic CHF / Aortic stenosis DLP IDDM2 with hyperglycemia Coronary artery disease NSTEMI: Type II - likely 2/2 sepsis HTN s/p Lactic acidosis Chronic pain GI prophylaxis DVT prophylaxis COMPLICATIONS/CHIEF COMPLAINT: Shortness of breath HISTORY OF PRESENT ILLNESS / HOSPITAL COURSE: Patient is an 89-year-old female with a PMHx of Aortic stenosis, Peripheral vascular disease, HTN, Suspected Diastolic CHF, COPD / Chronic hypoxic respiratory failure (on 3L O2), DLP, who presented to the hospital with confusion and shortness of breath. Upon arrival to ER, patient had a fever / SOB / confusion, suspected to be 2/2 PNA. She was admitted to the hospitalist service for further evaluation and treatment of the pneumonia. Patient had progression of her hypoxia and was eventually intubated on 01/29 by art historian after discussion with son about goals of care. The wanted her to remain full code with intubation and aggressive support. Patient did not require any pressor support while in the ICU and was eventually extubated on 02/01. On 02/01 evening, patient had worsening respiratory function and was ultimately made comfort measures after discussion with art historian and family. Patient ultimately on 02/03/20 at 5:31PM. Family was present at bedside. DISCHARGE MEDICATIONS: Please see below. ALLERGIES: Please see below. PHYSICAL EXAMINATION ON DISCHARGE: Full exam not done LABORATORY DATA: Please see below. DISPOSITION: Vital Signs/I&Os Vital Signs Date Time Temp Pulse Resp B/P (MAP) Pulse Ox O2 Delivery O2 Flow Rate FiO2 02/03/20 06:36 38 02/03/20 04:00 40 02/03/20 01:07 98.2 79 114/62 (82) 88 Aerosol Mask 02/03/20 00:15 10.0 Microbiology Microbiology 02/01/20 Gram Stain - Final, Complete 02/01/20 Wound Culture - Final, Complete Staph.aureus Methicillin Resis 02/01/20 Gram Stain - Final, Complete 02/01/20 Wound Culture - Final, Complete Staph.aureus Methicillin Resis 01/30/20 Gram Stain - Final, Complete 01/30/20 Sputum Culture - Final, Complete 01/29/20 Gram Stain - Final, Complete 01/29/20 Sputum Culture - Final, Complete Klebsiella Pneumoniae 01/28/20 Blood Culture - Final, Complete NO GROWTH AFTER 5 DAYS 01/28/20 Respiratory Virus Panel (PCR) ([facility]) - Final, Complete 01/28/20 Blood Culture - Final, Complete NO GROWTH AFTER 5 DAYS Discharge Medications Scheduled Aspirin (Aspirin EC) 81 Mg Tablet.dr, 81 MG PO QHS, (Reported) Budesonide/Formoterol (Symbicort 80-4.5 Mcg Inhaler) 60 Puff/Inhaler Aers, 2 PUFF INH BID, (Reported) Cholecalciferol (Vitamin D3) (Vitamin D3) 1,000 Unit Tablet, 1,000 UNITS PO QHS, (Reported) Cilostazol (Cilostazol) 50 Mg Tablet, 50 MG PO BID, (Reported) Clopidogrel Bisulfate (Clopidogrel) 75 Mg Tablet, 75 MG PO DAILY, (Reported) Collagenase Clostridium Hist. (Santyl) 30 Gm Oint...g., 1 APLCT TOP DAILY, (Reported) APPLY TO RIGHT ANKLE ULCER WITH EACH DRESSING CHANGE Diltiazem HCl (Diltiazem 24Hr ER) 120 Mg Cap.er.24h, 120 MG PO DAILY, (Reported) Furosemide (Furosemide) 20 Mg Tablet, 20 MG PO DAILY, (Reported) Insulin Glargine,Hum.rec.anlog ([place] Solostar) 300 Unit/1 Ml Insuln.pen, 35 UNIT SC DAILY, (Reported) Ipratropium/Albuterol Sulfate (Iprat-Albut 0.5-3(2.5) mg/3 ml) 3 Ml Ampul.neb, 1 VIAL INH BID, (Reported) Multivitamins (Thera M Plus Tablet) 1 Each Tablet, 1 TAB PO QHS, (Reported) Omeprazole (Omeprazole) 40 Mg Capsule.dr, 40 MG PO BID, (Reported) Potassium Chloride (Potassium Chloride) 10 Meq Tab.er.prt, 10 MEQ PO DAILY, (Reported) Pravastatin Sodium (Pravastatin Sodium) 20 Mg Tablet, 20 MG PO DAILY, (Reported) Prednisone (Prednisone) 5 Mg Tablet, 5 MG PO DAILY, (Reported) Sitagliptin Phosphate (Januvia) 25 Mg Tablet, 25 MG PO DAILY, (Reported) Sucralfate (Sucralfate) 1 Gm Tablet, 1 GM PO ACHS, (Reported) Tiotropium [place] Monohydrate (Spiriva) 18 Mcg Cap.w.dev, 18 MCG INH DAILY, (Reported) Scheduled PRN Docusate Sodium (Stool Softener) 100 Mg Capsule, 100 MG PO BID PRN for CONSTIPATION, (Reported) Hydrocodone/Acetaminophen (Hydrocodone-Acetamin 5-300 mg) 1 Each Tablet, 1 TAB PO Q8H PRN for PAIN, (Reported) Allergies Coded Allergies: codeine (Verified Allergy, Unknown, 01/21/19) Sulfa (Sulfonamide Antibiotics) (Verified Adverse Reaction, Mild, RASH , 01/21/19) erythromycin base (Verified Adverse Reaction, Mild, NAUSEA, 01/21/19) LOREE ALONSO MD Feb 04, 2020 17:36
== END 2020-02-03 17:31 | disposition expired | DRG 871 ==
LOC: EDBD 11:27 → M ED 11:27 → M ED INP 13:46 → ENRESERV 14:19 → M PCU 15:58 → M ICU 01-30 09:39
PROVIDERS: ADMIT Internal Medicine Nephrology; ATTEND Internal Medicine
PROC: 5A1945Z Respiratory Ventilation, 24-96 Consecutive Hours (ICD-10-PCS; principal; 2020-01-30)
PROC: 0BH17EZ Insertion of Endotracheal Airway into Trachea, Via Natural or Artificial Opening (ICD-10-PCS; 2020-01-30)
PROC: 02HV33Z Insertion of Infusion Device into Superior Vena Cava, Percutaneous Approach (ICD-10-PCS; 2020-01-30)
DX: A41.9 Sepsis, unspecified organism (principal); J15.0 Pneumonia due to Klebsiella pneumoniae; J96.21 Acute and chronic respiratory failure with hypoxia; I21.A1 Myocardial infarction type 2; J85.1 Abscess of lung with pneumonia; G93.41 Metabolic encephalopathy; L97.919 Non-pressure chronic ulcer of unspecified part of right lower leg with unspecified severity; I50.32 Chronic diastolic (congestive) heart failure; E87.2 Acidosis; J44.1 Chronic obstructive pulmonary disease with (acute) exacerbation; J44.0 Chronic obstructive pulmonary disease with (acute) lower respiratory infection; I48.20 Chronic atrial fibrillation, unspecified; E46 Unspecified protein-calorie malnutrition; E87.0 Hyperosmolality and hypernatremia; R57.9 Shock, unspecified; Z51.5 Encounter for palliative care; Z66 Do not resuscitate; R13.10 Dysphagia, unspecified; E11.51 Type 2 diabetes mellitus with diabetic peripheral angiopathy without gangrene; G89.29 Other chronic pain; F39 Unspecified mood [affective] disorder; E11.65 Type 2 diabetes mellitus with hyperglycemia; I35.0 Nonrheumatic aortic (valve) stenosis; R31.9 Hematuria, unspecified; I25.10 Atherosclerotic heart disease of native coronary artery without angina pectoris; E78.5 Hyperlipidemia, unspecified; Z99.81 Dependence on supplemental oxygen; Z79.82 Long term (current) use of aspirin; Z79.02 Long term (current) use of antithrombotics/antiplatelets; Z79.4 Long term (current) use of insulin; Z79.52 Long term (current) use of systemic steroids; Z79.899 Other long term (current) drug therapy; Z88.2 Allergy status to sulfonamides; Z88.1 Allergy status to other antibiotic agents; Z88.5 Allergy status to narcotic agent; Z95.820 Peripheral vascular angioplasty status with implants and grafts; Z11.59 Encounter for screening for other viral diseases